=== PATIENT | female | born 1970 | race Caucasian/White ===

== ENCOUNTER → 2018-08-26 | Outpatient (CLI) | payer OTHER ==
--- NOTE | 2018-08-26 17:39 | MR ---
EXAMINATION TYPE: MR cervical spine wo con DATE OF EXAM: 08/26/2018 12:23 PM COMPARISON: NONE HISTORY: Neck pain, numbness in lt arm/fingers Multiplanar MultiSpin echo imaging of the cervical spine was performed. Comparison: none C2-C3: No evidence for degenerative disc disease. No disc bulge/herniation or protrusion. No Canal stenosis. Foramina are patent bilaterally. C3-C4: Mild disc desiccation. Mild posterior disc bulge. No evidence for a central stenosis or cord c ontact. No evidence for foraminal encroachment. C4-C5: Mild disc desiccation with circumferential disc bulge greatest posteriorly. Mild effacement ve ntral thecal sac. No evidence for cord contact or central stenosis. No evidence for foraminal encroac hment. C5-C6: Moderate disc desiccation with circumferential disc bulge greatest posteriorly. Effacement of the ventral thecal sac with borderline to mild stenosis. Mild left foraminal encroachment identified. C6-C7: No evidence for degenerative disc disease. No disc bulge/herniation or protrusion. No Canal stenosis. Foramina are patent bilaterally. C7-T1: No evidence for degenerative disc disease. No disc bulge/herniation or protrusion. No Canal stenosis. Foramina are patent bilaterally. Cervical segments are intact. There is normal alignment. Cervical spinal cord is of normal signal. Craniovertebral junction relationships are within normal limits. IMPRESSION: 1. Multilevel degenerative disc disease. 2. Borderline to mild central stenosis at C5-6 as outlined above.
== END ==
LOC: RADMRIMAIN 08:35
PROVIDERS: ATTEND Orthopaedic Surgery
DX: M48.02 Spinal stenosis, cervical region (principal); M50.30 Other cervical disc degeneration, unspecified cervical region
CPT/HCPCS: 72141

== ENCOUNTER → 2018-12-19 | Outpatient (CLI) | payer OTHER ==
[2018-12-19 11:44] LABS: T4, Free (Free Thyroxine) 0.8 ng/dL (0.80-1.80)
== END | disposition home or self-care (01) ==
LOC: LABWHC1 06:41
PROVIDERS: ATTEND Family Medicine
DX: E03.9 Hypothyroidism, unspecified (principal)
CPT/HCPCS: 36415; 84439; 84443

== ENCOUNTER 2019-01-22 07:34 | Observation (INO) | payer OTHER ==
[2019-01-22] MEDS ORDERED: ASPIRIN 81 MG PO STA (07:53)
[2019-01-22] MEDS ORDERED: SODIUM CHLORIDE 0.9% 1,000 ML IV STA (07:53)
--- NOTE | 2019-01-22 07:57 | ED ---
Chest Pain HPI - General Chief Complaint: Chest Pain Stated Complaint: chest pain Time Seen by Provider: 01/22/19 07:45 Source: patient, RN notes reviewed Mode of arrival: wheelchair Limitations: no limitations - History of Present Illness Initial Comments: This is a 48-year-old female with a history is negative for any heart or lung disease but who did have a mother who had a heart attack in her mid 30s who states she's been having issues with recent right arm pain none today also some vague shortness of breath over last several days but none today but about 640 this morning started developing midsternal heavy pressure-like pain 6-03/12 severity she also no other blood pressure was elevated 179/112 3185/104 this is not typical for her. She does have a history of SVT with ablation and did not really feel like that. She's had no recent cough cold fevers chills nausea vomiting sweats no heavy lifting. She does work in the mental health unit. The pain does not get better or worse with movements or positional changes. She did take some Benadryl this morning and she thought this may help but did not MD Complaint: chest pain - Related Data Home Medications Medication Instructions Recorded Confirmed Desvenlafaxine Succinate [Pristiq] 100 mg PO DAILY 01/22/19 01/22/19 Dextroamphetamine/Amphetamine 30 mg PO DAILY 01/22/19 01/22/19 [Adderall] Ibuprofen [Motrin Ib] 600 mg PO Q6H PRN 01/22/19 01/22/19 Keto Suppliment 2 cap PO DAILY 01/22/19 01/22/19 Thyroid,Pork [[place] Thyroid] 60 mg PO DIRECTED 01/22/19 01/22/19 busPIRone HCl [Buspar] 10 mg PO DAILY 01/22/19 01/22/19 clonazePAM [KlonoPIN] 1 mg PO HS PRN 01/22/19 01/22/19 Allergies Allergy/AdvReac Type Severity Reaction Status Date / Time No Known Allergies Allergy Verified 01/22/19 08:50 Review of Systems ROS Statement: Those systems with pertinent positive or pertinent negative responses have been documented in the HPI. ROS Other: All systems not noted in ROS Statement are negative. EKG Findings - EKG Results: EKG: interpreted by LILLY, sinus rhythm (Sinus rhythm rate of 94 WI interval 120 QRS duration 82 QT since QTC 392/490 nonspecific anterior configuration some artifact present) Past Medical History Additional Past Medical History / Comment(s): SVT, History of Any Multi-Drug Resistant Organisms: None Reported Additional Past Surgical History / Comment(s): bladder sling, breast augmentation. Past Psychological History: Anxiety, Depression Smoking Status: Former smoker Past Alcohol Use History: Occasional Past Drug Use History: None Reported General Exam - General Exam Comments Initial Comments: This is a well-developed well-nourished awake alert oriented 3 female Limitations: no limitations General appearance: alert, in no apparent distress Head exam: Present: atraumatic, normocephalic, normal inspection Eye exam: Present: normal appearance, PERRL, EOMI. Absent: scleral icterus, conjunctival injection, periorbital swelling ENT exam: Present: normal exam, mucous membranes moist Neck exam: Present: normal inspection, full ROM, other (No stridor JVD or bruits). Absent: tenderness, meningismus, lymphadenopathy Respiratory exam: Present: normal lung sounds bilaterally. Absent: respiratory distress, wheezes, rales, rhonchi, stridor Cardiovascular Exam: Present: regular rate, normal rhythm, normal heart sounds. Absent: systolic murmur, diastolic murmur, rubs, gallop, clicks GI/Abdominal exam: Present: soft, normal bowel sounds. Absent: distended, tenderness, guarding, rebound, rigid Extremities exam: Present: normal inspection, full ROM, normal capillary refill. Absent: tenderness, pedal edema, joint swelling, calf tenderness Back exam: Present: normal inspection Neurological exam: Present: alert, oriented X3, CN II-XII intact Psychiatric exam: Present: normal affect, normal mood Skin exam: Present: warm, dry, intact, normal color. Absent: rash Course Vital Signs 01/22/19 01/22/19 01/22/19 07:36 07:48 08:00 Temperature 98.3 F Pulse Rate 97 90 85 Pulse Rate [ Software Developer Intern ] Respiratory 16 15 19 Rate Blood Pressure 179/112 166/107 O2 Sat by Pulse 99 Oximetry 01/22/19 01/22/19 01/22/19 08:24 08:30 09:00 Temperature Pulse Rate 91 89 Pulse Rate [ 87 Software Developer Intern ] Respiratory 24 11 L Rate Blood Pressure 155/112 155/112 O2 Sat by Pulse Oximetry 01/22/19 01/22/19 09:30 10:14 Temperature Pulse Rate Pulse Rate [ Software Developer Intern ] Respiratory Rate Blood Pressure 151/106 129/85 O2 Sat by Pulse Oximetry - Reevaluation(s) Reevaluation #1: 01/22/19 10:14 Reevaluation patient revealed no new chest pain. Reevaluation #2: 01/22/19 10:18 I did review the old EKG dated 07/23/12 which is consistent with today's EKG. Chest Pain MDM - MDM I did review the imaging and report no acute findings. Case was discussed with the patient the symptoms are atypical but the patient does have a strong family history she will be admitted for evaluation of chest pain. I did discuss case with Dr. Wright. Cardiology will be consulted. The patient does see Dr. Noble Disposition Clinical Impression: Chest pain, Unstable angina pectoris Disposition: ADMITTED IP TO THIS [facility] Condition: Stable Referrals: Tiny Lala DO [Primary Care Provider] - 1-2 days
--- NOTE | 2019-01-22 08:27 | XR ---
EXAMINATION TYPE: XR chest 2V DATE OF EXAM: 01/22/2019 COMPARISON: Prior chest x-ray 07/22/2012 HISTORY: Chest pain TECHNIQUE: Frontal and lateral views of the chest are obtained. FINDINGS: There is no focal air space opacity, pleural effusion, or pneumothorax seen. The cardiac silhouette size is within normal limits. The osseous structures are intact. There are overlying car diac leads. Breast prostheses are present. IMPRESSION: No acute cardiopulmonary process.
[2019-01-22 08:39] LABS: ALT 35 U/L (9-52); AST 26 U/L (14-36); Albumin 4.5 g/dL (3.5-5.0); Alkaline Phosphatase 64 U/L (38-126); Amylase 51 U/L (30-110); Anion Gap 8 mmol/L; Blood Urea Nitrogen 11 mg/dL (7-17); Calcium 9.6 mg/dL (8.4-10.2); Carbon Dioxide 29 mmol/L (22-30); Chloride 99 mmol/L (98-107); Creatine Kinase 121 U/L (30-135); Glucose 85 mg/dL (74-99); Lipase 105 U/L (23-300); Magnesium 1.7 mg/dL (1.6-2.3); Potassium 3.9 mmol/L (3.5-5.1); Sodium 136 mmol/L (137-145); Total Bilirubin 0.8 mg/dL (0.2-1.3); Total Protein 7.5 g/dL (6.3-8.2)
[2019-01-22 08:47] LABS: D-Dimer 0.19 mg/L FEU (<0.60); INR 0.9 (<1.2); Partial Thromboplastin Time 22.4 sec (22.0-30.0)
[2019-01-22 09:03] LABS: Basophils % (A) 1 %; Eosinophils # (A) 0.3 k/uL (0-0.7); Eosinophils % (A) 4 %; HCT 36.4 % (34.0-46.0); HGB 12.5 gm/dL (11.4-16.0); Lymphocytes # (A) 1.6 k/uL (1.0-4.8); Lymphocytes % (A) 24 %; MCH 30.4 pg (25.0-35.0); MCHC 34.4 g/dL (31.0-37.0); MCV 88.3 fL (80.0-100.0); Mean Platelet Volume 6.8; Monocytes # (A) 0.5 k/uL (0-1.0); Monocytes % (A) 8 %; Neutrophils # (A) 4.2 k/uL (1.3-7.7); Neutrophils % (A) 62 %; Platelet Count 388 k/uL (150-450); RBC 4.13 m/uL (3.80-5.40); RDW 13.3 % (11.5-15.5); WBC 6.8 k/uL (3.8-10.6)
[2019-01-22] MEDS ORDERED: NITROGLYCERIN SL TABS 0.4 MG TAB SUBLINGUAL PRN (10:22)
[2019-01-22] MEDS ORDERED: HEPARIN SODIUM,PORCINE 5,000 UNIT/ML 1 ML VIAL IV ONE (10:22)
[2019-01-22] MEDS ORDERED: HEPARIN SOD,PORK IN 0.45% NACL 25,000 UNIT in 0.45% NACL 1 250ML.BAG IV SCH (10:30)
[2019-01-22] MEDS ORDERED: NON-FORMULARY DRUG (Thyroid,Pork [Armour Thyroid] 60 MG) PO SCH (10:30)
[2019-01-22] MEDS ORDERED: SODIUM CHLORIDE 0.9% 1,000 ML IV SCH (11:30)
--- NOTE | 2019-01-22 11:40 | P.CRDCN ---
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 Rose and dyslipidemia. She also has anxiety and depression. We have been asked to see her in consultation secondary to an episode of chest discomfort. She works the midnight shift at the hospital and at 640 in the morning she started feeling very heavy pressure sensation in the midsternal region. There is no radiation to the back, neck, arms or jaw. She checked her blood pressure and was very high 170/110 which is very abnormal for her. She does not take any medication for hypertension. Upon arrival to the emergency department blood pressure was 179/112 and 166/107. Blood pressures are slowly trending down. Her symptoms persisted for approximately 3 hours with no specific alleviating or aggravating factors. She was started on a heparin infusion given an aspirin in the emergency department. She denies associated shortness of breath, dizziness, palpitations, nausea, vomiting or diaphoresis. She states when she was diagnosed with SVT her symptoms were very atypical and similar to how she felt this morning however at that time she also was extremely lightheaded and she did not have any lightheaded or dizzy feeling this time. EKG reveals sinus rhythm with T-wave inversions in anterior leads. No acute ST abnormalities. Chest x-ray is negative for an acute cardiopulmonary process. Laboratory data reviewed, WBC 6.8, hemoglobin 12.5, platelets 388, d-dimer 0.19, sodium 136, potassium 3.9, creatinine 0.65, magnesium 1.7, cardiac enzymes negative 1 and proBNP 142. She takes no daily cardiac medications. Most recent stress test performed in the office in 2016 was a stress echocardiogram which revealed good exercise capacity, no evidence of EKG or echocardiographic abnormalities suggestive of ischemia and no exercise-induced arrhythmias. At the time of my exam: CONSTITUTIONAL: Denies fever. Denies chills. EYES: Denies blurred vision. Denies vision changes. Denies eye pain. EARS, NOSE, MOUTH & THROAT: Denies headache. Denies sore throat. Denies ear pain. CARDIOVASCULAR: Denies chest pain. Denies shortness of breath. Denies orthopnea. Denies PND. Denies palpitations. RESPIRATORY: Denies cough. GASTROINTESTINAL: Denies abdominal pain. Denies diarrhea. Denies constipation. Denies nausea. Denies vomiting. MUSCULOSKELETAL: Denies myalgias. INTEGUMENTARY: Denies pruitis. Denies rash. NEUROLOGIC: Denies numbness. Denies tingling. Denies weakness. PSYCHIATRIC: Denies anxiety. Denies depression. ENDOCRINE: Denies fatigue. Denies weight change. Denies polydipsia. Denies polyurina. GENITOURINARY: Denies burning, hematuria or urgency with micturation. HEMATOLOGIC: Denies history of anemia. Denies bleeding. Blood pressure 149/101 heart rate 96 afebrile maintaining oxygen saturation on room air GENERAL: This is a 48-year-old female in no apparent distress at the time of my examination. HEENT: Head is atraumatic, normocephalic. Pupils are equal, round. Sclerae anicteric. Conjunctivae are clear. Mucous membranes of the mouth are moist. Neck is supple. There is no jugular venous distention. No carotid bruit is heard. LUNGS: Clear to auscultation no wheezes, rales or rhonchi. No chest wall tenderness is noted on palpation or with deep breathing. HEART: Regular rate and rhythm without murmurs, rubs or gallops. S1 and S2 heard. ABDOMEN: Soft, nontender. Bowel sounds are heard. No organomegaly noted. EXTREMITIES: No evidence of peripheral edema and no calf tenderness noted. VASCULAR: Radial and dorsalis pedis pulses palpated, no evidence of clubbing. NEUROLOGIC: Patient is awake, alert and oriented x3. ASSESSMENT Chest pain, atypical for angina. 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 Continue to obtain serial cardiac enzymes to rule out an acute coronary event. Obtain 2-D echocardiogram and Doppler study to assess cardiac structure and function. Check thyroid studies. Cardiac enzymes are normal heparin can be discontinued and she will undergo stress echocardiogram. Ongoing telemetry monitoring for an acute arrhythmia. We will continue to follow and make recommendations accordingly. Thank you kindly for this consultation. Nurse Practitioner note has been reviewed, I agree with a documented findings and plan of care. Patient was seen and examined. Past Medical History Additional Past Medical History / Comment(s): SVT, History of Any Multi-Drug Resistant Organisms: None Reported Additional Past Surgical History / Comment(s): bladder sling, breast augmentation. Past Psychological History: Anxiety, Depression Smoking Status: Former smoker Past Alcohol Use History: Occasional Past Drug Use History: None Reported Medications and Allergies Home Medications Medication Instructions Recorded Confirmed Type Desvenlafaxine Succinate [Pristiq] 100 mg PO DAILY 01/22/19 01/22/19 History Dextroamphetamine/Amphetamine 30 mg PO DAILY 01/22/19 01/22/19 History [Adderall] Ibuprofen [Motrin Ib] 600 mg PO Q6H PRN 01/22/19 01/22/19 History Keto Suppliment 2 cap PO DAILY 01/22/19 01/22/19 History Thyroid,Pork [[place] Thyroid] 60 mg PO DIRECTED 01/22/19 01/22/19 History busPIRone HCl [Buspar] 10 mg PO DAILY 01/22/19 01/22/19 History clonazePAM [KlonoPIN] 1 mg PO HS PRN 01/22/19 01/22/19 History Allergies Allergy/AdvReac Type Severity Reaction Status Date / Time No Known Allergies Allergy Verified 01/22/19 08:50 Physical Exam Vitals: Vital Signs Temp Pulse Pulse Pulse Resp BP BP 01/22/19 11:08 98.6 F 96 16 149/101 01/22/19 10:14 129/85 01/22/19 09:30 151/106 01/22/19 09:00 89 11 L 155/112 01/22/19 08:30 91 24 155/112 01/22/19 08:24 87 01/22/19 08:00 85 19 166/107 01/22/19 07:48 90 15 01/22/19 07:36 98.3 F 97 16 179/112 Pulse Ox 01/22/19 11:08 100 01/22/19 10:14 01/22/19 09:30 01/22/19 09:00 01/22/19 08:30 01/22/19 08:24 01/22/19 08:00 01/22/19 07:48 01/22/19 07:36 99 Intake and Output 01/21/19 01/22/19 01/22/19 22:59 06:59 14:59 Other: Weight 62.596 kg Results 01/22/19 08:11 01/22/19 08:11 Cardiac Enzymes 01/22/19 01/22/19 Range/Units 08:11 08:11 AST 26 (14-36) U/L Troponin I <0.012 (0.000-0.034) ng/mL Coagulation 01/22/19 Range/Units 08:11 PT 10.0 (9.0-12.0) sec APTT 22.4 (22.0-30.0) sec CBC 01/22/19 Range/Units 08:11 WBC 6.8 (3.8-10.6) k/uL RBC 4.13 (3.80-5.40) m/uL Hgb 12.5 (11.4-16.0) gm/dL Hct 36.4 (34.0-46.0) % Plt Count 388 (150-450) k/uL Comprehensive Metabolic Panel 01/22/19 Range/Units 08:11 Sodium 136 L (137-145) mmol/L Potassium 3.9 (3.5-5.1) mmol/L Chloride 99 (98-107) mmol/L Carbon Dioxide 29 (22-30) mmol/L BUN 11 (7-17) mg/dL Creatinine 0.65 (0.52-1.04) mg/dL Glucose 85 (74-99) mg/dL Calcium 9.6 (8.4-10.2) mg/dL AST 26 (14-36) U/L ALT 35 (9-52) U/L Alkaline Phosphatase 64 (38-126) U/L Total Protein 7.5 (6.3-8.2) g/dL Albumin 4.5 (3.5-5.0) g/dL Current Medications Generic Name Dose Route Start Last Admin Trade Name Freq PRN Reason Stop Dose Admin Aspirin 81 mg 01/23/19 09:00 Aspirin PO DAILY TED Buspirone HCl 10 mg 01/22/19 21:00 Buspar PO HS TED Clonazepam 1 mg 01/22/19 21:00 Klonopin PO HS PRN Anxiety Desvenlafaxine Succinate 100 mg 01/22/19 21:00 Pristiq Er PO HS TED Sodium Chloride 1,000 mls @ 100 mls/hr 01/22/19 07:53 01/22/19 08:16 Saline 0.9% IV 01/22/19 17:52 100 mls/hr .Q10H STA Administration Heparin Sodium/Sodium Chloride 250 mls @ 7.512 mls/hr 01/22/19 10:30 01/22/19 10:48 25,000 unit/ Sodium Chloride IV 12 units/kg/hr .Q24H TED 7.512 mls/hr Administration Protocol 12 UNITS/KG/HR Sodium Chloride 1,000 mls @ 20 mls/hr 01/22/19 11:30 Saline 0.9% IV .Q24H TED Nitroglycerin 0.4 mg 01/22/19 10:22 Nitrostat SUBLINGUAL Q5M PRN Chest Pain Adderall ( 30 mg 01/23/19 09:00 Dextroamphetamine/ PO Amphetamine) 30 Mg DAILY TED Intake and Output 01/21/19 01/22/19 01/22/19 22:59 06:59 14:59 Other: Weight 62.596 kg Patient Weight 01/23/19 06:59 Weight 62.596 kg 01/22/19 08:11 01/22/19 08:11
--- NOTE | 2019-01-22 13:15 | P.HPIM ---
History of Present Illness H&P Date: 01/22/19 Chief Complaint: Chest pain, palpitation, significantly high blood pressure 48-year-old female one of Dr. Montalvo's patient with past medical history AV hedy reentry tachycardia post-ablation to Dr. Noble back in 2011, history of hyperlipidemia, history of depression and mild ADD who presented to the emergency department at [facility] today 01/22/2019 with an episode of chest discomfort lasted between 6:00 in the morning to 9:00 as a pressure discomfort like without radiation had mild shortness of breath mild tachycardia and significantly high blood pressure running 170/110 at the time. 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 Her workup at the emergency department with negative EKG, troponin was normal. Blood pressure was moderately elevated. Patient was started on heparin drip nitro consult cardiology and admit patient to the hospital. Review of Systems CONSTITUTIONAL: Well-developed no acute respiratory distress. EYES: No icterus sclerae, no conjunctivitis. EARS, NOSE, MOUTH, THROAT, and FACE: No sore throat, lymphadenopathy, carotid bruits or deformity. RESPIRATORY: Positive chest pain no shortness of breath cough wheezes CARDIOVASCULAR: Positive chest pain or palpitation no PND orthopnea. GASTROINTESTINAL: No Abd pain, Nausea or vomiting, no Diarrhea or constipation, No GI Bleed, no distention or masses. GENITOURINARY: Negative for Hematuria or UTI, no kidney stones. INTEGUMENT/BREAST: Negative for any muscular injury with mild osteoarthritis.. HEMATOLOGIC/LYMPHATIC: Negative for bleed or purpura. MUSCULOSKELTAL: Negative for Myalgia or arthralgia. NEURLOGICAL: No LOC, Sz or syncope, blurred vision dizziness or abnormality.. BEHAVIORAL/PSYCH: Negative. ENDOCRINE: Negative. Past Medical History Additional Past Medical History / Comment(s): SVT, History of Any Multi-Drug Resistant Organisms: None Reported Additional Past Surgical History / Comment(s): bladder sling, breast augmentation, cardiac ablation [address] Noble. Past Psychological History: Anxiety, Depression Smoking Status: Former smoker Past Alcohol Use History: Occasional Additional Past Alcohol Use History / Comment(s): Smoked for 2 years only. No alcohol abuse. Past Drug Use History: None Reported - Past Family History Mother Additional Family Medical History / Comment(s): Mother at age 57 from lung cancer with history of 2 MIs. Father Additional Family Medical History / Comment(s): Father alive at age 66 with history of COPD and HTN. Patient is an only child. 2 children with no major medical problems. Medications and Allergies Home Medications Medication Instructions Recorded Confirmed Type Desvenlafaxine Succinate [Pristiq] 100 mg PO DAILY 01/22/19 01/22/19 History Dextroamphetamine/Amphetamine 30 mg PO DAILY 01/22/19 01/22/19 History [Adderall] Ibuprofen [Motrin Ib] 600 mg PO Q6H PRN 01/22/19 01/22/19 History Keto Suppliment 2 cap PO DAILY 01/22/19 01/22/19 History Thyroid,Pork [[place] Thyroid] 60 mg PO DIRECTED 01/22/19 01/22/19 History busPIRone HCl [Buspar] 10 mg PO DAILY 01/22/19 01/22/19 History clonazePAM [KlonoPIN] 1 mg PO HS PRN 01/22/19 01/22/19 History Allergies Allergy/AdvReac Type Severity Reaction Status Date / Time No Known Allergies Allergy Verified 01/22/19 08:50 Physical Exam Vitals: Vital Signs Temp Pulse Pulse Pulse Resp BP BP 01/22/19 11:08 98.6 F 96 16 149/101 01/22/19 10:14 129/85 01/22/19 09:30 151/106 01/22/19 09:00 89 11 L 155/112 01/22/19 08:30 91 24 155/112 01/22/19 08:24 87 01/22/19 08:00 85 19 166/107 01/22/19 07:48 90 15 01/22/19 07:36 98.3 F 97 16 179/112 Pulse Ox 01/22/19 11:08 100 01/22/19 10:14 01/22/19 09:30 01/22/19 09:00 01/22/19 08:30 01/22/19 08:24 01/22/19 08:00 01/22/19 07:48 01/22/19 07:36 99 Intake and Output 01/21/19 01/22/19 01/22/19 22:59 06:59 14:59 Other: Weight 62.596 kg General Appearance: Alert, cooperative, no distress, appears stated age. Neck HEENT: Supple, no lymphadenopathy, no thyroid enlargement, no carotid b ruits. Lungs: Clear to auscultation without crackles or wheezes no rhonchi, no deformity. Chest Wall: Chest wall normal expansion with deep inspiration no tenderness and no deformity was found on exam, no costochondral pain or discomfort. Heart: Regular rate and rhythm, S1, S2 normal, no murmur, rub or gallop. Back: Symmetric, no curvature, ROM normal, no CVA tenderness. Abdomen: Soft, non-tender, bowel sounds active all four quadrants, no masses, no organomegaly. Extremities: Extremities normal, atraumatic, no cyanosis or edema. Pulses: 2+ and symmetric. Skin: Skin color, texture, tugor normal, no rashes or lesions. Neurologic: Alert oriented x3 cranial nerves II through XII intact, no motor deficit, no abnormal balance or gait. Results CBC & Chem 7: 01/22/19 08:11 01/22/19 08:11 Labs: Abnormal Lab Results - Last 24 Hours (Table) 01/22/19 Range/Units 08:11 Sodium 136 L (137-145) mmol/L Thrombosis Risk Factor Assmnt - DVT/VTE Prophylaxis DVT/VTE Prophylaxis: Pharmacologic Prophylaxis ordered, Mechanical Prophylaxis ordered Assessment and Plan Plan: 1 atypical chest pain: With high risk factor, with patient's current history Will hospitalize patient CK with troponin 3 will be done, consult cardiology, if troponin is negative patient be going for stress test and echo if troponin is elevated she'll require to go for heart cath. 2 arrhythmia: Mostly AV hedy reentry tachycardia post-ablation, has not been on any medication can benefit from small dose of beta ina if her blood pressure was tolerate. 3 significantly high blood pressure at the time: Blood pressure subtle down and decrease to 130/90, we talk about starting patient on small dose of beta ina calcium channel ina. 4 hyperlipidemia: Not on any medication. 5 chronic depression: Patient has been on BuSpar, Pristiq and clonidine. 6 hypothyroidism: Has been on [place] Thyroid TSH free T4 apparently was done recently as an outpatient. 7 GI prophylaxis: Patient will be on pantoprazole 40 mg daily. 8 DVT prophylaxis: Patient was started on heparin drip at this point. CODE STATUS: Full code. Admit patient to observation status for 1-2 nights.
[2019-01-22] MEDS ORDERED: diphenhydrAMINE 25 MG CAP PO PRN ×2 (13:39→14:13)
[2019-01-22] MEDS: PANTOPRAZOLE 40 MG TABLET PO SCH (14:17)
[2019-01-22 14:39] VITALS: BMI 26.0
[2019-01-22] MEDS ORDERED: busPIRone HCl 10 MG TAB PO SCH (21:00)
[2019-01-22] MEDS ORDERED: clonazePAM 1 MG TAB PO PRN (21:00)
[2019-01-22] MEDS ORDERED: DESVENLAFAXINE SUCCINATE 50 MG TAB.ER.24H PO SCH (21:00)
[2019-01-23 07:54] LABS: Cholesterol 243 mg/dL (<200); HDL Cholesterol 70 mg/dL (40-60); LDL Cholesterol,Calculated 147 mg/dL (0-99); Triglycerides 132 mg/dL (<150)
[2019-01-23] MEDS ORDERED: ASPIRIN 81 MG PO SCH (09:00)
[2019-01-23] MEDS ORDERED: DESVENLAFAXINE SUCCINATE 50 MG TAB.ER.24H PO SCH (09:00)
[2019-01-23] MEDS ORDERED: busPIRone HCl 10 MG TAB PO SCH (09:00)
[2019-01-23] MEDS ORDERED: ADDERALL 30 MG PO SCH (09:00)
[2019-01-23] MEDS ORDERED: ASPIRIN 325 MG TAB PO SCH (09:00)
[2019-01-23] MEDS: PANTOPRAZOLE 40 MG TABLET PO SCH (09:54)
--- NOTE | 2019-01-23 10:41 | P.PN ---
Subjective This is a pleasant 48 showed female past medical history significant for AV hedy reentry tachycardia status [place] [address] Rose and dyslipidemia. She also has anxiety and depression. We have been asked to see her in consultation secondary to an episode of chest discomfort. She works the midnight shift at the hospital and at 640 in the morning she started feeling very heavy pressure sensation in the midsternal region. There is no radiation to the back, neck, arms or jaw. She checked her blood pressure and was very high 170/110 which is very abnormal for her. She does not take any medication for hypertension. Upon arrival to the emergency department blood pressure was 179/112 and 166/107. Blood pressures are slowly trending down. Her symptoms persisted for approximately 3 hours with no specific alleviating or aggravating factors. She was started on a heparin infusion given an aspirin in the emerge ncy department. She denies associated shortness of breath, dizziness, palpitations, nausea, vomiting or diaphoresis. She states when she was diagnosed with SVT her symptoms were very atypical and similar to how she felt this morning however at that time she also was extremely lightheaded and she did not have any lightheaded or dizzy feeling this time. 01/23/2019 Pt seen and examined in no acute distress. No further symptoms of chest discomfort. Blood pressure 115/84 heart rate 66 afebrile and maintaining oxygen saturation on room air. Laboratory data reviewed, cardiac enzymes negative 3, TSH 2.0, LDL 147 and HDL 70. Telemetry tracings are unremarkable with no arrhythmias noted. Stress test completed without incident or EKG/echocardiographic evidence of ischemia. GENERAL: This is a 48-year-old female in no apparent distress at the time of my examination. HEENT: Head is atraumatic, normocephalic. Pupils are equal, round. Sclerae anicteric. Conjunctivae are clear. Mucous membranes of the mouth are moist. Neck is supple. There is no jugular venous distention. No carotid bruit is heard. LUNGS: Clear to auscultation no wheezes, rales or rhonchi. No chest wall tenderness is noted on palpation or with deep breathing. HEART: Regular rate and rhythm without murmurs, rubs or gallops. S1 and S2 heard. EXTREMITIES: No evidence of peripheral edema and no calf tenderness noted. ASSESSMENT Chest pain, atypical for angina. 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 Follow up with Dr. Noble in 2-3 weeks. Nurse Practitioner note has been reviewed, I agree with a documented findings and plan of care. Patient was seen and examined. Objective - Vital Signs Vital signs: Vital Signs Temp 98.1 F 01/23/19 07:50 Pulse 87 01/23/19 08:00 Resp 16 01/23/19 08:00 BP 115/84 01/23/19 07:50 Pulse Ox 98 01/23/19 07:50 Intake & Output 01/22/19 01/23/19 01/23/19 18:59 06:59 18:59 Intake Total 291.332 Balance 291.332 Weight 62.596 kg 62.596 kg Intake: Intake, IV Titration 51.332 Amount Heparin Sod,Pork in 0.45% 51.332 NaCl 25,000 unit In 0.45 % NaCl 1 250ml.bag @ 12 UNITS/KG/HR 7.512 mls/hr IV .Q24H TED Rx#: [id number] Oral 240 Other: Voiding Method Toilet Toilet # Voids 1 1 3 - Labs CBC & Chem 7: 01/22/19 08:11 01/22/19 08:11 Labs: Abnormal Lab Results - Last 24 Hours (Table) 01/22/19 01/22/19 Range/Units 08:11 16:05 APTT 35.1 H (22.0-30.0) sec Cholesterol 243 H (<200) mg/dL LDL Cholesterol, Calc 147 H (0-99) mg/dL HDL Cholesterol 70 H (40-60) mg/dL
--- NOTE | 2019-01-23 10:51 | ECHOF ---
Referral Reason:cp MEASUREMENTS -------- HEIGHT: 154.9 cm WEIGHT: 62.6 kg BP: 155/111 RVIDd: 2.5 cm (< 3.3) IVSd: 1.0 cm (0.6 - 1.1) LVIDd: 4.4 cm (3.9 - 5.3) LVPWd: 1.0 cm (0.6 - 1.1) IVSs: 1.4 cm LVIDs: 2.6 cm LVPWs: 1.3 cm LA Diam: 3.1 cm (2.7 - 3.8) LAESV Index (A-L): 11.66 ml/m Ao Diam: 3.2 cm (2.0 - 3.7) AV Cusp: 2.1 cm (1.5 - 2.6) MV EXCURSION: 11.280 mm (> 18.000) MV EF SLOPE: 96 mm/s (70 - 150) EPSS: 0.6 cm MV E Vijay: 0.97 m/s MV DecT: 144 ms MV A Vijay: 0.97 m/s MV E/A Ratio: 1.00 AR PHT: 742 ms RAP: 5.00 mmHg RVSP: 26.29 mmHg FINDINGS -------- Sinus rhythm. This was a technically good study. The left ventricular size is normal. Left ventricular wall thickness is normal. Overall left vent ricular systolic function is normal with, an EF between 60 - 65 %. The right ventricle is normal in size. Normal LA size by volume 22+/-6 ml/m2. The right atrium is normal in size. Interatrial and interventricular septum intact. Aortic valve is trileaflet and is mildly thickened. Trace to mild aortic regurgitation. The mitral valve is normal. Mild mitral regurgitation is present. Mild tricuspid regurgitation present. Right ventricular systolic pressure is normal at < 35 mmHg. Trace/mild (physiologic) pulmonic regurgitation. The aortic root size is normal. Normal inferior vena cava with normal inspiratory collapse consistent with estimated right atrial pre ssure of 5 mmHg. There is no pericardial effusion. CONCLUSIONS -------- 1. Sinus rhythm. 2. This was a technically good study. 3. The left ventricular size is normal. 4. Left ventricular wall thickness is normal. 5. Overall left ventricular systolic function is normal with, an EF between 60 - 65 %. 6. The right ventricle is normal in size. 7. Normal LA size by volume 22+/-6 ml/m2. 8. The right atrium is normal in size. 9. Interatrial and interventricular septum intact. 10. Aortic valve is trileaflet and is mildly thickened. 11. Trace to mild aortic regurgitation. 12. The mitral valve is normal. 13. Mild mitral regurgitation is present. 14. Mild tricuspid regurgitation present. 15. Right ventricular systolic pressure is normal at < 35 mmHg. 16. Trace/mild (physiologic) pulmonic regurgitation. 17. The aortic root size is normal. 18. Normal inferior vena cava with normal inspiratory collapse consistent with estimated right atrial pressure of 5 mmHg. 19. There is no pericardial effusion. DITCH CLEANER: Keren Mahmood RDCS
--- NOTE | 2019-01-23 11:00 | ECHOS ---
STRESS ECHOCARDIOGRAM DATE OF SERVICE: 01/23/2019. INDICATION: Chest pain. MEDICATIONS: See list. BASELINE HEART RATE: 98. BASELINE BLOOD PRESSURE: 121/91. MAXIMUM HEART RATE: 158 MAXIMUM BLOOD PRESSURE: 153/74 85% MPHR: 148 100% MPHR: 174 METS: 12.1 MAXIMUM STAGE REACHED: IV TOTAL EXERCISE TIME: 10.24 minutes CLINICAL INFORMATION: Chest pain. RESULTS: Baseline EKG shows sinus rhythm, normal axis, normal intervals. Patient exercised on Gustavo protocol for a total of 10 and one half minutes achieving 12 METS. 91% of predicted maximal heart rate without chest pain or diagnostic ST-segment depression. Baseline echo shows normal left ventricular size, wall motion and systolic function. Postexercise there is normal hyperdynamic response of all segments of myocardium noted. CONCLUSIONS: 1. Excellent exercise tolerance. 2. Negative stress test by EKG criteria. 3. Negative stress echo. MMODL / IJN: [id number] /
[2019-01-23 12:08] VITALS: BP 112/77; PULSE 81; RESP 18; TEMP 97.6
--- NOTE | 2019-01-24 13:21 | P.DS ---
Providers Date of admission: 01/22/19 10:22 Expected date of discharge: 01/23/19 Attending physician: Remington Wright Consults: 01/22/19 10:22 Consult Physician Urgent Consulting Provider: Vipul Noble Consult Reason/Comments: Chest pain, angina Do you want consulting provider notified?: Yes Primary care physician: Tiny Lala, DO Hospital Course: 48-year-old female one of Dr. Montalvo's patient with past medical history AV hedy reentry tachycardia post-ablation to Dr. Noble back in 2011, history of hyperlipidemia, history of depression and mild ADD who presented to the emergency department at [facility] today 01/22/2019 with an episode of chest discomfort lasted between 6:00 in the morning to 9:00 as a pressure discomfort like without radiation had mild shortness of breath mild tachycardia and significantly high blood pressure running 170/110 at the time. 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 Her workup at the emergency department with negative EKG, troponin was normal. Blood pressure was moderately elevated. Patient was started on heparin drip nitro consult cardiology and admit patient to the hospital. 01/23: Echocardiogram reveals EF of 6065% with mild aortic regurgitation, mild mitral regurgitation, mild tricuspid regurgitation. Stress echocardiogram was negative and patient was cleared by cardiology for discharge home. We are Planning to send the patient on Protonix and amlodipine to cover for GERD and Prinzmetal angina. Patient will follow up with Dr. Montalvo in the office. Discharge diagnoses: 1 atypical chest pain 2 arrhythmia: Mostly AV hedy reentry tachycardia post-ablation 3 significantly high blood pressure at the time 4 hyperlipidemia 5 recurrent depression 6 hypothyroidism Discharge plan: Home Impression and plan of care have been directed as dictated by the signing physician. Ariana Schwartz nurse practitioner acting as scribe for signing physician. Patient Condition at Discharge: Good Plan - Discharge Summary New Discharge Prescriptions: New amLODIPine [Norvasc] 2.5 mg PO DAILY #30 tablet Pantoprazole [Protonix] 40 mg PO -BRKFST #30 tablet. Continue Thyroid,Pork [Nelson Thyroid] 60 mg PO DIRECTED clonazePAM [KlonoPIN] 1 mg PO HS PRN PRN Reason: Anxiety Keto Suppliment 2 cap PO DAILY Dextroamphetamine/Amphetamine [Adderall] 30 mg PO DAILY busPIRone HCl [Buspar] 10 mg PO DAILY Desvenlafaxine Succinate [Pristiq] 100 mg PO DAILY Ibuprofen [Motrin Ib] 600 mg PO Q6H PRN PRN Reason: Pain Discharge Medication List Desvenlafaxine Succinate [Pristiq] 100 mg PO DAILY 01/22/19 [History] Dextroamphetamine/Amphetamine [Adderall] 30 mg PO DAILY 01/22/19 [History] Ibuprofen [Motrin Ib] 600 mg PO Q6H PRN 01/22/19 [History] Keto Suppliment 2 cap PO DAILY 01/22/19 [History] Thyroid,Pork [Nelson Thyroid] 60 mg PO DIRECTED 01/22/19 [History] busPIRone HCl [Buspar] 10 mg PO DAILY 01/22/19 [History] clonazePAM [KlonoPIN] 1 mg PO HS PRN 01/22/19 [History] Pantoprazole [Protonix] 40 mg PO AC-BRKFST #30 tablet. 01/23/19 [Rx] amLODIPine [Norvasc] 2.5 mg PO DAILY #30 tablet 01/23/19 [Rx] Follow up Appointment(s)/Referral(s): Liu Montalvo MD [STAFF PHYSICIAN] - 1 Week Jayson Lopes MD [STAFF PHYSICIAN] - 02/11/19 3:15 pm Discharge Disposition: HOME SELF-CARE
== END 2019-01-23 11:52 | disposition home or self-care (01) ==
LOC: EC 07:34 → 1SOBS 10:22
PROVIDERS: ADMIT Internal Medicine Geriatric Medicine; ATTEND Internal Medicine Geriatric Medicine
DX: R07.89 Other chest pain (principal); R03.0 Elevated blood-pressure reading, without diagnosis of hypertension; I47.0 Re-entry ventricular arrhythmia; I08.3 Combined rheumatic disorders of mitral, aortic and tricuspid valves; F41.9 Anxiety disorder, unspecified; F33.9 Major depressive disorder, recurrent, unspecified; E78.5 Hyperlipidemia, unspecified; F98.8 Other specified behavioral and emotional disorders with onset usually occurring in childhood and adolescence; E03.9 Hypothyroidism, unspecified; Z79.899 Other long term (current) drug therapy; Z87.891 Personal history of nicotine dependence; Z82.49 Family history of ischemic heart disease and other diseases of the circulatory system; Z80.1 Family history of malignant neoplasm of trachea, bronchus and lung; Z82.5 Family history of asthma and other chronic lower respiratory diseases
CPT/HCPCS: 96366; 96376; 96365; 99285; 36415; 93005; 93306; 93351; 85379; 83880; 80061; 80053; 84443; 82150; 82550; 83690; 83735; 84484; 85025; 85610; 85730 ×2; 71046; G0378 ×2; J1644 ×2

== ENCOUNTER → 2019-09-24 | Outpatient (CLI) | payer OTHER ==
--- NOTE | 2019-09-24 09:06 | US ---
EXAMINATION TYPE: US abdomen complete DATE OF EXAM: 09/24/2019 COMPARISON: CT, US CLINICAL HISTORY: N30.00 ACUTE CYSTITIS. EXAM MEASUREMENTS: Liver Length: 15.3 cm Gallbladder Wall: 0.1 cm CBD: 0.5 cm Spleen: 10.0 cm Right Kidney: 9.7 x 5.2 x 4.2 cm Left Kidney: 9.3 x 4.7 x 5.5 cm Pancreas: hyperechoic Liver: hyperechoic to right renal cortex suggests fatty liver Gallbladder: wnl, fundal fold is noted Evidence for sonographic Wiley's sign: no CBD: wnl Spleen: wnl Right Kidney: No hydronephrosis or masses seen Left Kidney: No hydronephrosis or masses seen Upper IVC: wnl Abd Aorta: wnl IMPRESSION: 1. Liver increased in echo pattern correlate for hepatic steatosis or hepatitis.
--- NOTE | 2019-09-24 09:10 | US ---
EXAMINATION TYPE: US pelvic complete DATE OF EXAM: 09/24/2019 COMPARISON: CT, US CLINICAL HISTORY: N30.00 ACUTE CYSTITIS. Bladder mesh surgery for urinary incontinence years ago; blo ating sensation; irregular LMP; TECHNIQUE: Transvaginal (TV) and Transabdominal (TA) . Transabdominal sonographic images of the pel vis were acquired. Transvaginal sonographic images were medically necessary to better assess the fol lowing anatomy: bilateral ovary Date of LMP: mid August 2019 EXAM MEASUREMENTS: Uterus: 9.4 x 4.6 x 5.0 cm Endometrial Stripe: 1.3 cm Right Ovary: 3.5 x 4.0 x 3.1 cm Left Ovary: 5.1 x 2.8 x 2.7 cm 1. Uterus: Anteverted; multiple NAbothian Cysts seen in cervix with largest = 0.7 x 0.7 x 0.8cm. 2. Endometrium: thickness measures 1.3 cm 3. Right Ovary: enlarged ovary with large simple cyst = 3.1 x 3.3 x 2.9cm 4. Left Ovary: enlarged ovary, couple of enlarged cysts with larger cyst = 2.7 x 2.5 x 2.6cm (color flow is seen in bilateral ovary) 5. Bilateral Adnexa: wnl 6. Posterior cul-de-sac: wnl IMPRESSION: 1. Endometrium measures 1.3 cm and is thickened correlate with the phase of patient's menstrual cycle . 2. 3.3 cm large right ovarian simple cyst. 3. Left ovarian cysts. Follow-up to resolution follow-up exam in 6-8 weeks could be obtained to danita alvarenga
== END | disposition home or self-care (01) ==
LOC: RADUSWWP 07:22
PROVIDERS: ATTEND Family Medicine
DX: N83.202 Unspecified ovarian cyst, left side (principal); N83.291 Other ovarian cyst, right side; N30.00 Acute cystitis without hematuria
CPT/HCPCS: 76700; 76830; 76856

== ENCOUNTER → 2020-02-03 | Outpatient (CLI) | payer OTHER ==
--- NOTE | 2020-02-04 09:07 | MR ---
EXAMINATION TYPE: MR shoulder RT wo con DATE OF EXAM: 02/03/2020 COMPARISON: No outside radiographic correlation available for review. HISTORY: 49-year-old female with right shoulder strain of the muscle and tendon of the rotator cuff TECHNIQUE: Multiplanar, multisequence imaging of the right shoulder is performed without contrast. FINDINGS: Thickened and increased signal throughout the intracapsular portion of the lung head biceps tendon. T he extracapsular portion remains appropriately situated along the bicipital groove. The subscapularis tendon is intact. Soft tissue replacement and edematous change throughout the rotator cuff interval with obscuration of the coracohumeral ligament. Moderate degenerative change at the acromioclavicular joint with marginal spurring impressing on to t he myotendinous junction of the supraspinatus tendon and small joint effusion. Trace effusion within the subacromial/subdeltoid bursa. Heterogeneous signal within the supraspinatus tendon with a tiny 5 mm long by 7 mm AP articular sided tear of the mid supraspinatous tendon. No high-grade partial or full-thickness tear of either supras pinatus or infraspinatus tendons. No atrophy of the rotator cuff musculature. Mild heterogeneous signal of the superior labrum behind the biceps anchor. No para labral cysts. Glenohumeral joint is otherwise intact with physiologic joint fluid. No Hill-Sachs deformity or os acromiale. Patchy red marrow can be seen in setting of anemia, obesity, smoking, and chronic disease. IMPRESSION: 1. Edematous change and soft tissue replacement throughout the rotator cuff interval. Some differenti al considerations include sprain of the biceps dawson, synovitis, and developing adhesive capsulitis. Clinically correlate. 2. Thickening and edema of the intracapsular portion of the long head biceps tendon may support bicep s dawson sprain with accompanying biceps tendon strain. Again, clinically correlate. 3. Supraspinatus tendinosis with a tiny 5 x 7 mm articular sided tear of the mid fibers. No high-grad e partial or full-thickness rotator cuff tear. 4. Moderate AC joint OA with mild impingement onto the underlying cuff. 5. Some degenerative irregularity of the superior labrum. If concern for labral pathology, MR arthrog huber can be considered.
== END | disposition home or self-care (01) ==
LOC: RADMRIMAIN 05:45
PROVIDERS: ATTEND Emergency Medicine
DX: R60.9 Edema, unspecified (principal); Z96.611 Presence of right artificial shoulder joint; M19.011 Primary osteoarthritis, right shoulder

== ENCOUNTER → 2020-08-06 | Outpatient (CLI) | payer OTHER ==
[2020-08-07 01:36] LABS: African American GFR (CKD) 101.8 (60.0-200.0); Albumin 4.6 g/dL (3.80-4.90); Albumin/Globulin Ratio 2.09 (1.60-3.17); Anion Gap 11.7 mmol/L (4.00-12.00); BUN/Creat Ratio 26.25 Ratio (12.00-20.00); Calcium 9.3 mg/dL (8.7-10.3); Carbon Dioxide 23.3 mmol/L (21.6-31.8); Globulin 2.2 g/dL (1.6-3.3); Non-African American GFR(CKD) 87.8 (60.0-200.0); Potassium 4.1 mmol/L (3.5-5.5); Total Protein 6.8 g/dL (6.2-8.2)
== END | disposition home or self-care (01) ==
LOC: LABWHC1 16:21
DX: Z51.81 Encounter for therapeutic drug level monitoring (principal); Z79.899 Other long term (current) drug therapy
CPT/HCPCS: 36415; 80053

== ENCOUNTER 2023-08-10 16:01 | Emergency (ER) | payer BC ==
[2023-08-10 16:35] VITALS: TEMP 98.3
[2023-08-10] MEDS ORDERED: KETOROLAC 15 MG/ML 1 ML VIAL IVP STA (17:44)
[2023-08-10 17:54] LABS: Basophils # (A) 0.1 k/uL (0-0.2); Basophils % (A) 1 %; Eosinophils # (A) 0.2 k/uL (0-0.7); Eosinophils % (A) 2 %; HCT 35.8 % (34.0-46.0); Lymphocytes # (A) 1.6 k/uL (1.0-4.8); Lymphocytes % (A) 16 %; MCH 29.2 pg (25.0-35.0); MCHC 33.5 g/dL (31.0-37.0); MCV 87.1 fL (80.0-100.0); Mean Platelet Volume 7.1; Monocytes # (A) 0.5 k/uL (0-1.0); Monocytes % (A) 5 %; Neutrophils # (A) 7.5 k/uL (1.3-7.7); Neutrophils % (A) 75 %; Platelet Count 325 k/uL (150-450); RBC 4.11 m/uL (3.80-5.40); RDW 14.9 % (11.5-15.5)
[2023-08-10 18:02] LABS: INR 0.9 (<1.2); Partial Thromboplastin Time 23.9 sec (22.0-30.0); Prothrombin Time 10.1 sec (10.0-12.5)
--- NOTE | 2023-08-10 18:11 | CT ---
EXAMINATION TYPE: CT abdomen pelvis w con DATE OF EXAM: 08/10/2023 COMPARISON: NONE HISTORY: 52-year-old female with hematochezia, Gen. Abdominal pain x 2 days TECHNIQUE: Contiguous axial scanning of the abdomen and pelvis following administration of 100 ml Iso mary 300 IV contrast. Delayed images through the kidneys and coronal/sagittal reconstructions perform ed. CT DLP: 568.1 mGycm Automated exposure control for dose reduction was used. FINDINGS: LUNG BASES: No significant abnormality is appreciated. Bilateral breast implants. LIVER/GB: Liver borderline enlarged at 17.5 cm. No focal lesion. Portal venous system is patent. No b iliary ductal dilatation. Gallbladder within normal limits. PANCREAS: No significant abnormality is seen. SPLEEN: No significant abnormality is seen. ADRENALS: No significant abnormality is seen. KIDNEYS: No significant abnormality is seen. BOWEL: No dilated small bowel. Normal appendix. There is annular thickening at the junction of the ce cum and ascending colon, refer to coronal image 42. This may represent a focal peristaltic wave. Dire ct visualization recommended when patient able. There is moderate edematous circumferential wall thickening with mild pericolonic fat stranding exten ding from the upper descending colon to the proximal sigmoid colon. Some scattered prominent fluid-fi lled small bowel loops mid to lower abdomen and pelvis. LYMPH NODES: No greater than 1cm abdominal or pelvic lymph nodes are appreciated. PELVIS: Mild circumferential bladder wall thickening. Uterus is anteverted. Cervical nabothian cyst measuring 1 cm. Suspected 1.5 cm dominant follicle or functional cyst left ovary. Both ovaries are vi sualized. No abnormal fluid collection the pelvis or pelvic lymphadenopathy. OSSEOUS STRUCTURES: No significant abnormality is seen. OTHER: No significant additional abnormality is seen. IMPRESSION: 1. NONSPECIFIC INFECTIOUS OR INFLAMMATORY COLITIS INVOLVING THE DESCENDING COLON. THERE IS MODERATE E DEMATOUS WALL THICKENING AND MILD ADJACENT FAT STRANDING. NO ABSCESS OR FREE AIR. 2. ANNULAR THICKENING AT THE JUNCTION OF THE CECUM AND ASCENDING COLON MAY REPRESENT FOCAL PERISTALSI S. AFTER SUCCESSFULLY TREATING THE PATIENT'S COLITIS, RECOMMEND DIRECT VISUALIZATION TO EXCLUDE UNDER LYING NEOPLASM. 3. PROMINENT FLUID-FILLED SMALL BOWEL LOOPS MID TO LOWER ABDOMEN AND PELVIS MAY BE A SECONDARY ILEUS OR A CONCURRENT ENTERITIS.
[2023-08-10 18:14] LABS: ALT 30 U/L (4-34); AST 25 U/L (14-36); African American GFR (CKD) >90 (>60 ml/min/1.73 sqM); Alkaline Phosphatase 74 U/L (38-126); Anion Gap 10 mmol/L; Blood Urea Nitrogen 18 mg/dL (7-17); Calcium 8.7 mg/dL (8.4-10.2); Carbon Dioxide 24 mmol/L (22-30); Chloride 102 mmol/L (98-107); Glucose 91 mg/dL (74-99); Magnesium 1.9 mg/dL (1.6-2.3); Non-African American GFR(CKD) >90 (>60 ml/min/1.73 sqM); Potassium 4.1 mmol/L (3.5-5.1); Sodium 136 mmol/L (137-145); Total Bilirubin 0.6 mg/dL (0.2-1.3); Total Protein 6.9 g/dL (6.3-8.2)
[2023-08-10] MEDS ORDERED: cefTRIAXone IN SWFI 1,000 MG/10 ML SYRINGE IVP STA (20:20)
[2023-08-10] MEDS ORDERED: metroNIDAZOLE 500 MG TAB PO STA (20:21)
--- NOTE | 2023-08-10 20:25 | ED ---
GI Bleed HPI - General Chief complaint: GI Bleed Stated complaint: GI Bleed Time Seen by Provider: 08/10/23 16:15 Source: patient Mode of arrival: ambulatory Limitations: no limitations - History of Present Illness Initial comments: 52-year-old female presents emergency department reporting to bright red blood per rectum. States that her symptoms started on Sunday. No history of similar in the past. She does admit to generalized abdominal pain. No rectal pain. States that she has not had a bowel movement in several days. She has been taking several medications including no of mag and stool softeners without success. She denies any fevers. No issues urinating. Mother does have a history of ulcerative colitis. She has had a colonoscopy previously however this was close to 20 years ago. She denies any hematemesis. No fevers. No va ginal bleeding. No other alleviating, precipitating or modifying factors - Related Data Home Medications Medication Instructions Recorded Confirmed Desvenlafaxine Succinate [Pristiq] 100 mg PO DAILY 01/22/19 01/22/19 Dextroamphetamine/Amphetamine 30 mg PO DAILY 01/22/19 01/22/19 [Adderall] Ibuprofen [Motrin Ib] 600 mg PO Q6H PRN 01/22/19 01/22/19 Keto Suppliment 2 cap PO DAILY 01/22/19 01/22/19 Thyroid,Pork [[place] Thyroid] 60 mg PO DIRECTED 01/22/19 01/22/19 busPIRone HCl [Buspar] 10 mg PO DAILY 01/22/19 01/22/19 clonazePAM [KlonoPIN] 1 mg PO HS PRN 01/22/19 01/22/19 Previous Rx's Medication Instructions Recorded Pantoprazole [Protonix] 40 mg PO AC-BRKFST #30 tablet. 01/23/19 amLODIPine [Norvasc] 2.5 mg PO DAILY #30 tablet 01/23/19 Amoxic-Pot Clav 875-125Mg 1 tab PO Q12HR 1 Days #20 tab 08/10/23 [Augmentin 875-125] Allergies Allergy/AdvReac Type Severity Reaction Status Date / Time No Known Allergies Allergy Verified 01/22/19 08:50 Review of Systems ROS Statement: Those systems with pertinent positive or pertinent negative responses have been documented in the HPI. ROS Other: All systems not noted in ROS Statement are negative. Past Medical History Additional Past Medical History / Comment(s): SVT, History of Any Multi-Drug Resistant Organisms: MRSA Date of last positivie culture/infection: 04/05/19 MDRO Source:: Left Axilla Additional Past Surgical History / Comment(s): bladder sling, breast augmentation, cardiac ablation [address] Noble. Past Anesthesia/Blood Transfusion Reactions: No Reported Reaction Past Psychological History: Anxiety, Depression Past Alcohol Use History: Occasional Past Drug Use History: None Reported - Past Family History Mother Additional Family Medical History / Comment(s): Mother at age 57 from lung cancer with history of 2 MIs. Father Additional Family Medical History / Comment(s): Father alive at age 66 with history of COPD and HTN. Patient is an only child. 2 children with no major medical problems. General Exam Limitations: no limitations General appearance: alert, in no apparent distress Head exam: Present: atraumatic, normocephalic, normal inspection Eye exam: Present: normal appearance, PERRL, EOMI. Absent: scleral icterus, conjunctival injection, periorbital swelling ENT exam: Present: normal exam, mucous membranes moist Neck exam: Present: normal inspection. Absent: tenderness, meningismus, lymphadenopathy Respiratory exam: Present: normal lung sounds bilaterally. Absent: respiratory distress, wheezes, rales, rhonchi, stridor Cardiovascular Exam: Present: regular rate, normal rhythm, normal heart sounds. Absent: systolic murmur, diastolic murmur, rubs, gallop, clicks GI/Abdominal exam: Present: soft, normal bowel sounds. Absent: distended, tenderness, guarding, rebound, rigid Rectal exam: Present: normal rectal tone, heme (+) stool, hemorrhoids. Absent: black stool, bloody stool, mass Extremities exam: Present: normal inspection, full ROM, normal capillary refill. Absent: tenderness, pedal edema, joint swelling, calf tenderness Back exam: Present: normal inspection Neurological exam: Present: alert, oriented X3, CN II-XII intact Psychiatric exam: Present: normal affect, normal mood Skin exam: Present: warm, dry, intact, normal color. Absent: rash Course Vital Signs 08/10/23 08/10/23 16:10 20:56 Temperature 98.3 F Pulse Rate 89 80 Respiratory 16 20 Rate Blood Pressure 119/78 121/83 O2 Sat by Pulse 100 98 Oximetry Medical Decision Making - Medical Decision Making Was pt. sent in by a medical professional or institution (, ASTRID, SUPERVISOR [employer]EL[employer], urgent care, hospital, or [facility]...) When possible be specific @ -No Did you speak to anyone other than the patient for history (EMS, parent, family, police, friend...)? What history was obtained from this source @ -No Did you review nursing and triage notes (agree or disagree)? Why? @ -I reviewed and agree with nursing and triage notes Were old charts reviewed (outside hosp., previous admission, EMS record, old EKG, old radiological studies, urgent care reports/EKG's, [facility] records)? Report findings @ -No old charts were reviewed Differential Diagnosis (chest pain, altered mental status, abdominal pain women, abdominal pain men, vaginal bleeding, weakness, fever, dyspnea, syncope, headache, dizziness, GI bleed, back pain, seizure, CVA, palpatations, mental health, musculoskeletal)? @ -Differential GI Bleed: Esophageal varices, aortoenteric fistula, [place], gastritis, peptic ulcer disease, diverticulosis, inflammatory bowel disease, hemorrhoids, fissure, colitis, malignancy, Meckels diverticulum, this is not meant to be an all- inclusive list. EKG interpreted by me (3pts min.). @ -Not done X-rays interpreted by me (1pt min.). @ -None done CT interpreted by me (1pt min.). @ -yes and demonstrates colitis U/S interpreted by me (1pt. min.). @ -None done What testing was considered but not performed or refused? (CT, X-rays, U/S, labs)? Why? @ -None What meds were considered but not given or refused? Why? @ -None Did you discuss the management of the patient with other professionals (professionals i.e. , ASTRID, SUPERVISOR PIPELINE, lab, RT, psych nurse, social services assistant, electronic funds transfer coordinator, teacher, public relations officer, rn field case manager)? Give summary @ -No Was smoking cessation discussed for >3mins.? @ -No Was critical care preformed (if so, how long)? @ -No Were there social determinants of health that impacted care today? How? (Homelessness, low income, unemployed, alcoholism, drug addiction, transportation, low edu. Level, literacy, decrease access to med. care, prison, rehab)? @ -No Was there de-escalation of care discussed even if they declined (Discuss DNR or withdrawal of care, Hospice)? DNR status @ -No What co-morbidities impacted this encounter? (DM, HTN, Smoking, COPD, CAD, Cancer, CVA, ARF, Chemo, Hep., AIDS, mental health diagnosis, sleep apnea, morbid obesity)? @ -None Was patient admitted / discharged? Hospital course, mention meds given and route, prescriptions, significant lab abnormalities, going to OR and other pertinent info. @ -Discharged. Upon arrival patient was placed into room 11. Her history and physical exam was performed. IV is established and laboratory studies were conducted. Patient does go for CT. Rectal exam does not demonstrate gross blood but does demonstrate occult blood. CT demonstrates colitis. Patient will be started on antibiotics. She will be trialed on outpatient antibiotics for her condition. She is to monitor her symptoms. Return should she not have any improvement in 48-72 hours. She will require colonoscopy. Patient agreeable to this plan and was discharged in stable condition Undiagnosed new problem with uncertain prognosis? @ -No Drug Therapy requiring intensive monitoring for toxicity (Heparin, Nitro, Insulin, Cardizem)? @ -No Were any procedures done? @ -No Diagnosis/symptom? @ -Acute hematochezia, acute descending colitis Acute, or Chronic, or Acute on Chronic? @ -Acute Uncomplicated (without systemic symptoms) or Complicated (systemic symptoms)? @ -Complicated Side effects of treatment? @ -No Exacerbation, Progression, or Severe Exacerbation? @ -No Poses a threat to life or bodily function? How? (Chest pain, USA, [place], pneumonia, PE, COPD, DKA, ARF, appy, cholecystitis, CVA, Diverticulitis, Homicidal, Suicidal, threat to staff... and all critical care pts) @ -No - Lab Data Result diagrams: 08/10/23 17:24 08/10/23 17:24 Lab Results 08/10/23 08/10/23 08/10/23 Range/Units 17:24 17:24 17:24 WBC 10.0 (3.8-10.6) k/uL RBC 4.11 (3.80-5.40) m/uL Hgb 12.0 (11.4-16.0) gm/dL Hct 35.8 (34.0-46.0) % MCV 87.1 (80.0-100.0) fL MCH 29.2 (25.0-35.0) pg MCHC 33.5 (31.0-37.0) g/dL RDW 14.9 (11.5-15.5) % Plt Count 325 (150-450) k/uL MPV 7.1 Neutrophils % 75 % Lymphocytes % 16 % Monocytes % 5 % Eosinophils % 2 % Basophils % 1 % Neutrophils # 7.5 (1.3-7.7) k/uL Lymphocytes # 1.6 (1.0-4.8) k/uL Monocytes # 0.5 (0-1.0) k/uL Eosinophils # 0.2 (0-0.7) k/uL Basophils # 0.1 (0-0.2) k/uL PT 10.1 (10.0-12.5) sec INR 0.9 (<1.2) APTT 23.9 (22.0-30.0) sec Sodium 136 L (137-145) mmol/L Potassium 4.1 (3.5-5.1) mmol/L Chloride 102 (98-107) mmol/L Carbon Dioxide 24 (22-30) mmol/L Anion Gap 10 mmol/L BUN 18 H (7-17) mg/dL Creatinine 0.56 (0.52-1.04) mg/dL Est GFR (CKD-EPI)AfAm >90 (>60 ml/min/1.73 sqM) Est GFR (CKD-EPI)NonAf >90 (>60 ml/min/1.73 sqM) Glucose 91 (74-99) mg/dL Plasma Lactic Acid Jose F (0.7-2.0) mmol/L Calcium 8.7 (8.4-10.2) mg/dL Magnesium 1.9 (1.6-2.3) mg/dL Total Bilirubin 0.6 (0.2-1.3) mg/dL AST 25 (14-36) U/L ALT 30 (4-34) U/L Alkaline Phosphatase 74 (38-126) U/L Troponin I (0.000-0.034) ng/mL Total Protein 6.9 (6.3-8.2) g/dL Albumin 4.0 (3.5-5.0) g/dL Stool Occult Blood (Negative) 08/10/23 08/10/23 08/10/23 Range/Units 17:24 17:24 20:00 WBC (3.8-10.6) k/uL RBC (3.80-5.40) m/uL Hgb (11.4-16.0) gm/dL Hct (34.0-46.0) % MCV (80.0-100.0) fL MCH (25.0-35.0) pg MCHC (31.0-37.0) g/dL RDW (11.5-15.5) % Plt Count (150-450) k/uL MPV Neutrophils % % Lymphocytes % % Monocytes % % Eosinophils % % Basophils % % Neutrophils # (1.3-7.7) k/uL Lymphocytes # (1.0-4.8) k/uL Monocytes # (0-1.0) k/uL Eosinophils # (0-0.7) k/uL Basophils # (0-0.2) k/uL PT (10.0-12.5) sec INR (<1.2) APTT (22.0-30.0) sec Sodium (137-145) mmol/L Potassium (3.5-5.1) mmol/L Chloride (98-107) mmol/L Carbon Dioxide (22-30) mmol/L Anion Gap mmol/L BUN (7-17) mg/dL Creatinine (0.52-1.04) mg/dL Est GFR (CKD-EPI)AfAm (>60 ml/min/1.73 sqM) Est GFR (CKD-EPI)NonAf (>60 ml/min/1.73 sqM) Glucose (74-99) mg/dL Plasma Lactic Acid Jose F 0.7 (0.7-2.0) mmol/L Calcium (8.4-10.2) mg/dL Magnesium (1.6-2.3) mg/dL Total Bilirubin (0.2-1.3) mg/dL AST (14-36) U/L ALT (4-34) U/L Alkaline Phosphatase (38-126) U/L Troponin I <0.012 (0.000-0.034) ng/mL Total Protein (6.3-8.2) g/dL Albumin (3.5-5.0) g/dL Stool Occult Blood Positive H (Negative) Disposition Clinical Impression: Hematochezia, Colitis Disposition: HOME SELF-CARE Condition: Stable Instructions (If sedation given, give patient instructions): Gastrointestinal Bleeding (ED), Colitis (ED) Additional Instructions: Please take the antibiotics as directed starting tomorrow. Follow up with the GI doctor. You will need a colonoscopy within the next couple of months. If your symptoms do not improve or you develop fever, return to the emergency department Prescriptions: Amoxic-Pot Clav 875-125Mg [Augmentin 875-125] 1 tab PO Q12HR 1 Days #20 tab Is patient prescribed a controlled substance at d/c from ED?: No Referrals: Tiny Lala DO [Primary Care Provider] - 1-2 days Carly Lopes MD [STAFF PHYSICIAN] - 1-2 days Time of Disposition: 20:23
[2023-08-10 21:10] VITALS: BP 121/83; PULSE 80; RESP 20
== END 2023-08-10 21:02 | disposition home or self-care (01) ==
LOC: EC 16:01
DX: K92.1 Melena (principal); K52.9 Noninfective gastroenteritis and colitis, unspecified; F41.9 Anxiety disorder, unspecified; F32.A Depression, unspecified; Z79.899 Other long term (current) drug therapy
CPT/HCPCS: 36415; 80053; 83605; 83735; 84484; 85025; 85610; 85730; 82272; 74177; 99285; 96374; 96375; J0696; J1885; Q9967

== ENCOUNTER 2023-08-17 11:23 | Day surgery (SDC) | payer BC ==
[2023-08-16 10:28] VITALS: BMI 22.3
[~2023-08-17 11:23] MED LIST: LACTATED RINGERS 1,000 ML IV SCH; LIDOCAINE 1% (10MG/ML) FOR IV START INTRADERMA PRN
[2023-08-17 11:57] LABS: Glucose,Whole Blood 92 mg/dL (70-110)
[2023-08-17 12:19] VITALS: TEMP 97.9
[2023-08-17] MEDS ORDERED: PROPOFOL 10 MG/ML 20 ML VIAL IV ONE (12:44)
[2023-08-17] MEDS ORDERED: LIDOCAINE 1% INJ 10MG/ML (20 ML MDV) ONE (12:44)
--- NOTE | 2023-08-17 13:07 | P.PCN ---
Date of Procedure: 08/17/23 Procedure(s) Performed: BRIEF HISTORY: Patient is a 52-year-old pleasant white female scheduled for an elective colonoscopy as a part of evaluation of acute onset of lower abdominal pain and rectal bleeding 2 weeks ago for which she went to the emergency room and had a CT of abdomen which showed thickening of the descending colon all the proximal sigmoid colon suspicious for acute colitis. She was treated with antibiotics and was discharged home. . Her symptoms are resolved now. PROCEDURE PERFORMED: Colonoscopy. PREOPERATIVE DIAGNOSIS: Recent episode of acute colitis. IV sedation per Anesthesia. PROCEDURE: After informed consent was obtained, the patient, was brought into the endoscopy unit. IV sedation was administered by Anesthesia under continuous monitoring. Digital rectal examination was normal. Initially the Olympus CF-160 flexible video colonoscope was then inserted in the rectum, gradually advanced into the cecum without any difficulty. Careful examination was performed as the scope was gradually being withdrawn. Ileocecal valve and the appendiceal orifice were visualized and appeared normal. Prep was excellent. Mucosa of the cecum, ascending colon, transverse colon, descending colon, sigmoid colon, and rectum appeared normal. Retroflexion was performed in the rectum and no lesions were seen. The patient tolerated the procedure well. IMPRESSION: Normal-appearing colon from rectum to cecum with no evidence of active colitis or colorectal neoplasia. RECOMMENDATIONS: Findings of this examination were discussed with the patient is well as her family. She Recent episode of acute colitis is completely resolved.was advised to be a high-fiber diet and take fiber supplements a regular basis. Admit repeat screening colonoscopy in 10 years..
[2023-08-17 13:58] VITALS: BP 124/78; PULSE 78; RESP 16
== END 2023-08-17 13:47 | disposition home or self-care (01) ==
LOC: ORWHC2ENDO 11:23
PROVIDERS: ATTEND Internal Medicine Gastroenterology
DX: K62.5 Hemorrhage of anus and rectum (principal); I47.10 Supraventricular tachycardia, unspecified; F41.9 Anxiety disorder, unspecified; F32.A Depression, unspecified; Z79.2 Long term (current) use of antibiotics; Z79.899 Other long term (current) drug therapy; Z86.79 Personal history of other diseases of the circulatory system
CPT/HCPCS: 45378; J2001; J2704

== ENCOUNTER 2023-10-13 01:16 | Emergency (ER) | payer BC ==
[2023-10-13 01:24] VITALS: BP 152/102; PULSE 98; RESP 18; TEMP 98.7
--- NOTE | 2023-10-13 02:34 | ED ---
Upper Extremity HPI - General Chief Complaint: Extremity Injury, Upper Stated Complaint: [facility] - Left Arm Injury Time Seen by Provider: 10/13/23 01:34 Source: patient Mode of arrival: ambulatory Limitations: no limitations - History of Present Illness Initial Comments: 52-year-old female presenting with chief complaint of left arm pain. Patient is a nurse, works at our facility. States that she was attempting to catch a falling patient when her left forearm was hit against the door frame. This occurred around 2200. She has some swelling near the elbow. She has full range of motion of the elbow wrist and fingers. No discoloration. No numbness tingling or weakness. - Related Data Home Medications Medication Instructions Recorded Confirmed Desvenlafaxine Succinate [Pristiq] 50 mg PO DAILY 01/22/19 08/17/23 Dextroamphetamine/Amphetamine 30 mg PO DAILY 01/22/19 08/17/23 [Adderall] clonazePAM [KlonoPIN] 1 mg PO HS PRN 01/22/19 08/17/23 Naltrexone Microspheres [Vivitrol] 380 mg IM Q30D 08/16/23 08/17/23 QUEtiapine [SEROquel] 200 mg PO HS 08/16/23 08/17/23 Semaglutide [Wegovy] 2.4 mg SQ WEEKLY 08/16/23 08/17/23 Previous Rx's Medication Instructions Recorded Amoxic-Pot Clav 875-125Mg 1 tab PO Q12HR 1 Days #20 tab 08/10/23 [Augmentin 875-125] Allergies Allergy/AdvReac Type Severity Reaction Status Date / Time No Known Allergies Allergy Verified 08/17/23 11:44 Review of Systems ROS Statement: Those systems with pertinent positive or pertinent negative responses have been documented in the HPI. ROS Other: All systems not noted in ROS Statement are negative. Past Medical History Past Medical History: GI Bleed Additional Past Medical History / Comment(s): SVT, abdominal pain infection? ruling out colitis History of Any Multi-Drug Resistant Organisms: MRSA Date of last positivie culture/infection: 04/05/19 MDRO Source:: Left Axilla Past Surgical History: Bladder Surgery, Breast Surgery, Cardiac Ablation, Orthopedic Surgery Additional Past Surgical History / Comment(s): bladder sling, breast augmentation, cardiac ablation [address]., colonoscopy , mini abdominalplasty, britney carpal tunnel Past Anesthesia/Blood Transfusion Reactions: No Reported Reaction Past Psychological History: Anxiety, Depression Past Alcohol Use History: None Reported - Past Family History Mother Additional Family Medical History / Comment(s): Mother at age 57 from lung cancer with history of 2 MIs. Father Additional Family Medical History / Comment(s): Father alive at age 66 with history of COPD and HTN. Patient is an only child. 2 children with no major medical problems. General Exam Limitations: no limitations General appearance: alert, in no apparent distress Head exam: Present: atraumatic, normocephalic Eye exam: Present: normal appearance, EOMI Neck exam: Present: normal inspection Respiratory exam: Absent: respiratory distress Cardiovascular Exam: Present: regular rate Left Forearm Wrist exam: Present: full ROM, tenderness, swelling. Absent: deformity, erythema Vascular: Absent: vascular compromise Neurological exam: Present: alert, oriented X3 Psychiatric exam: Present: normal affect, normal mood Skin exam: Present: warm, dry Course Vital Signs 10/13/23 01:18 Temperature 98.7 F Pulse Rate 98 Respiratory 18 Rate Blood Pressure 152/102 O2 Sat by Pulse 97 Oximetry Medical Decision Making - Medical Decision Making Was pt. sent in by a medical professional or institution (, PA, NEWSROOM INTERN, urgent care, hospital, or residential...) When possible be specific @ -No Did you speak to anyone other than the patient for history (EMS, parent, family, police, friend...)? What history was obtained from this source @ -No Did you review nursing and triage notes (agree or disagree)? Why? @ -I reviewed and agree with nursing and triage notes Were old charts reviewed (outside hosp., previous admission, EMS record, old EKG, old radiological studies, urgent care reports/EKG's, residential records)? Report findings @ -No old charts were reviewed Differential Diagnosis (chest pain, altered mental status, abdominal pain women, abdominal pain men, vaginal bleeding, weakness, fever, dyspnea, syncope, headache, dizziness, GI bleed, back pain, seizure, CVA, palpatations, mental health, musculoskeletal)? @ -Differential Musculoskeletal Muscular strain, contusion, ligament sprain, fracture, arthritis, septic arthritis, bursitis, cellulitis, muscle spasm, nerve compression, DVT, arterial occlusion, herpes zoster, electrolyte abnormality, tumor.... This is not meant to be in all inclusive list EKG interpreted by me (3pts min.). @ -As above X-rays interpreted by me (1pt min.). @ -By my interpretation forearm x-ray shows no acute fracture or dislocation. Formal report is pending CT interpreted by me (1pt min.). @ -None done U/S interpreted by me (1pt. min.). @ -None done What testing was considered but not performed or refused? (CT, X-rays, U/S, labs)? Why? @ -None What meds were considered but not given or refused? Why? @ -None Did you discuss the management of the patient with other professionals (professionals i.e. , PA, NEWSROOM INTERN, lab, RT, psych nurse, secondary social studies teacher, community director, teacher, community resource officer, nurse case management)? Give summary @ -No Was smoking cessation discussed for >3mins.? @ -No Was critical care preformed (if so, how long)? @ -No Were there social determinants of health that impacted care today? How? (Homelessness, low income, unemployed, alcoholism, drug addiction, transportation, low edu. Level, literacy, decrease access to med. care, [facility], rehab)? @ -No Was there de-escalation of care discussed even if they declined (Discuss DNR or withdrawal of care, Hospice)? DNR status @ -No What co-morbidities impacted this encounter? (DM, HTN, Smoking, COPD, CAD, Cancer, CVA, ARF, Chemo, Hep., AIDS, mental health diagnosis, sleep apnea, morbid obesity)? @ -None Was patient admitted / discharged? Hospital course, mention meds given and route, prescriptions, significant lab abnormalities, going to OR and other pertinent info. @ -60-year-old female presenting with chief complaint of left forearm injury. Patient hit the arm against the door while trying to catch a falling patient at work. She is neurovascularly intact. Full range of motion at the level of the elbow wrist and fingers. By my interpretation x-ray shows no acute fracture or dislocation. Formal report is pending. Patient is requesting discharge and to be notified of any positive results. Discharged home. Follow-up with PCP. Report back to ER with any new or worsening symptoms. Discussed return parameters and answered all questions. Patient conveyed verbal understanding and agreed to the plan. I discussed this case in detail with my attending Dr. Monsalve Undiagnosed new problem with uncertain prognosis? @ -No Drug Therapy requiring intensive monitoring for toxicity (Heparin, Nitro, Insulin, Cardizem)? @ -No Were any procedures done? @ -No Diagnosis/symptom? @ -Forearm strain Acute, or Chronic, or Acute on Chronic? @ -Acute Uncomplicated (without systemic symptoms) or Complicated (systemic symptoms)? @ -Uncomplicated Side effects of treatment? @ -No Exacerbation, Progression, or Severe Exacerbation? @ -No Poses a threat to life or bodily function? How? (Chest pain, USA, [place], pneumonia, PE, COPD, DKA, ARF, appy, cholecystitis, CVA, Diverticulitis, Homicidal, Suicidal, threat to staff... and all critical care pts) @ -No Disposition Clinical Impression: Arm injury Disposition: HOME SELF-CARE Condition: Good Instructions (If sedation given, give patient instructions): Arm Pain (ED) Additional Instructions: Follow-up with PCP. Report back to ER with any new or worsening symptoms. Is patient prescribed a controlled substance at d/c from ED?: No Referrals: Janine Bird DO [Primary Care Provider] - 1-2 days Time of Disposition: 02:34
--- NOTE | 2023-10-13 05:58 | XR ---
EXAM: XR Left Forearm, 2 Views CLINICAL HISTORY: ITS.REASON XR Reason: injury TECHNIQUE: Frontal and lateral views of the left forearm. COMPARISON: No relevant prior studies available. FINDINGS: Bones/joints: Unremarkable. No acute fracture. No dislocation. Soft tissues: Unremarkable. IMPRESSION: Normal left forearm x-rays.
== END 2023-10-13 02:38 | disposition home or self-care (01) ==
LOC: EC 01:16
DX: S56.912A Strain of unspecified muscles, fascia and tendons at forearm level, left arm, initial encounter (principal); F41.9 Anxiety disorder, unspecified; F32.A Depression, unspecified; Z79.899 Other long term (current) drug therapy; W18.09XA Striking against other object with subsequent fall, initial encounter; Y99.0 Civilian activity done for income or pay
CPT/HCPCS: 99283

== ENCOUNTER → 2023-11-07 | Outpatient (CLI) | payer OTHER ==
--- NOTE | 2023-11-07 13:52 | XR ---
EXAMINATION TYPE: XR elbow complete LT DATE OF EXAM: 11/07/2023 CLINICAL HISTORY: pain TECHNIQUE: Frontal, lateral and oblique images of the left elbow are obtained. COMPARISON: None. FINDINGS: There is no acute fracture/dislocation evident of the elbow. No abnormal fat pad signs ar e seen. The overlying soft tissue appears unremarkable. IMPRESSION: There is no acute fracture or dislocation of the elbow. ICD 10 NO FRACTURE, INITIAL EVALUATION
== END | disposition home or self-care (01) ==
LOC: RADXRMAIN 13:27
PROVIDERS: ATTEND Emergency Medicine
DX: S53.402A Unspecified sprain of left elbow, initial encounter (principal); X58.XXXA Exposure to other specified factors, initial encounter

== ENCOUNTER → 2023-11-13 | Outpatient (CLI) | payer BC ==
--- NOTE | 2023-11-13 14:36 | XR ---
EXAMINATION TYPE: XR Hip LT and AP Pelvis DATE OF EXAM: 11/13/2023 COMPARISON: NONE HISTORY: Left hip pain. Impression: There is no fracture, subluxation or dislocation. The joint spaces are preserved.
== END | disposition home or self-care (01) ==
LOC: RADXRMAIN 13:48
PROVIDERS: ATTEND Family Medicine
DX: M25.552 Pain in left hip (principal); G57.02 Lesion of sciatic nerve, left lower limb
CPT/HCPCS: 73502

== ENCOUNTER → 2023-11-14 | Outpatient (CLI) | payer OTHER ==
--- NOTE | 2023-11-15 07:35 | MR ---
EXAMINATION TYPE: MR elbow LT wo con DATE OF EXAM: 11/14/2023 COMPARISON: Radiograph 11/07/2023 HISTORY: 52-year-old female S53.402A, Left elbow pain and swelling with limited movement TECHNIQUE: Multiplanar, multisequence images of the left elbow were obtained without IV contrast. FINDINGS: No acute or healing fracture is seen. The distal biceps tendon is intact as is the triceps insertion. Mild intermediate signal at the triceps insertion suggests insertional tendinosis. There is some mild increased signal at the brachialis insertion onto the proximal ulna, axial image 1 1. No significant joint effusion. There is intrasubstance signal at the common extensor tendon origin measuring 4 x 3 mm suggesting a t iny intrasubstance tear. The underlying LCL appears intact. There is soft tissue edema along the medial aspect of the elbow extending posteriorly to the cubital fossa. There is fluid signal undercutting the humeral attachment of the anterior band of the UCL. The overlying common flexor tendon origin appears intact. There is increased signal and mild thickening of the ulnar nerve just adjacent and slightly more prox imal with a cross-sectional area of nearly 13 sq mm. No suspicious bone marrow replacement. The brachial neurovascular bundle appears normal. IMPRESSION: 1. Correlate for medial instability; findings suggest tear/rupture of the UCL at its humeral attachme nt. Associated soft tissue swelling and possible mild contusion of the adjacent ulnar nerve. 2. Tiny intrasubstance tear (4 x 3 mm) at the common extensor tendon origin. 3. Mild insertional triceps tendinosis as well as mild insertional brachialis tendinosis.
== END | disposition home or self-care (01) ==
LOC: RADMRIMAIN 21:15
PROVIDERS: ATTEND Emergency Medicine
DX: S53.402A Unspecified sprain of left elbow, initial encounter (principal); X58.XXXA Exposure to other specified factors, initial encounter; M25.522 Pain in left elbow

== ENCOUNTER 2023-12-18 01:21 | Observation (INO) | payer BC, OTHER ==
[2023-12-18 01:53] LABS: Basophils # (A) 0.1 k/uL (0-0.2); Basophils % (A) 1 %; Eosinophils # (A) 0.4 k/uL (0-0.7); Eosinophils % (A) 6 %; HGB 13.5 gm/dL (11.4-16.0); Lymphocytes # (A) 2.6 k/uL (1.0-4.8); Lymphocytes % (A) 36 %; MCHC 35.5 g/dL (31.0-37.0); MCV 87.2 fL (80.0-100.0); Mean Platelet Volume 8.5; Monocytes # (A) 0.5 k/uL (0-1.0); Monocytes % (A) 7 %; Neutrophils # (A) 3.5 k/uL (1.3-7.7); Neutrophils % (A) 48 %; Platelet Count 255 k/uL (150-450); RBC 4.36 m/uL (3.80-5.40); RDW 13.8 % (11.5-15.5); WBC 7.3 k/uL (3.8-10.6)
[2023-12-18 02:01] LABS: ALT 309 U/L (4-34); African American GFR (CKD) >90 (>60 ml/min/1.73 sqM); Albumin 4.4 g/dL (3.5-5.0); Amylase 79 U/L (30-110); Anion Gap 6 mmol/L; Blood Urea Nitrogen 12 mg/dL (7-17); Calcium 9.4 mg/dL (8.4-10.2); Carbon Dioxide 32 mmol/L (22-30); Chloride 105 mmol/L (98-107); Glucose 84 mg/dL (74-99); Lipase 312 U/L (23-300); Non-African American GFR(CKD) >90 (>60 ml/min/1.73 sqM); Sodium 143 mmol/L (137-145); Total Bilirubin 1.1 mg/dL (0.2-1.3); Total Protein 7.5 g/dL (6.3-8.2)
[2023-12-18 02:08] LABS: Amorphous Sediment,Urine Rare /hpf; Appearance,Urine Cloudy (Clear); Bacteria,Urine Rare /hpf; Bilirubin,Urine Negative (Negative); Blood,Urine Small (Negative); Calcium Oxalate Crystals,Urine Rare /hpf; Color,Urine Colorless; Glucose,Urine (UA) Negative (Negative); Hyaline Casts,Urine 1 /lpf (0-2); Ketones,Urine Negative (Negative); Leukocyte Esterase,Urine Large (Negative); Mucus,Urine Rare /hpf; Nitrite,Urine Negative (Negative); Protein,Urine Negative (Negative); RBC,Urine 7 /hpf (0-5); Specific Gravity,Urine 1.015 (1.001-1.035); Squamous Epithelial Cell,Urine 2 /hpf (0-4); Urobilinogen,Urine <2.0 mg/dL (<2.0); WBC,Urine 28 /hpf (0-5)
[2023-12-18 02:13] LABS: AST 187 U/L (14-36); Alkaline Phosphatase 96 U/L (38-126); Potassium 4.5 mmol/L (3.5-5.1)
--- NOTE | 2023-12-18 02:22 | ED ---
Abdominal Pain HPI <Azul Monsalve Raúl - Last Filed: 12/22/23 22:26> - General Source: patient, RN notes reviewed, old records reviewed Mode of arrival: ambulatory Limitations: no limitations - History of Present Illness MD Complaint: abdominal pain -: days(s) Location: RUQ, suprapubic, R flank Radiation: RUQ, back Migration to: R flank Severity: severe Severity scale (1-10): 9 Quality: cramping, stabbing Consistency: intermittent Improves With: nothing Worsens With: nothing Associated Symptoms: nausea, vomiting Treatments Prior to Arrival: other (0) <Jose Krueger - Last Filed: 12/25/23 23:22> - General Chief Complaint: Abdominal Pain Stated Complaint: Abd pain Time Seen by Provider: 12/18/23 02:21 - History of Present Illness Initial Comments: This is a 53-year-old female to the ER for evaluation abdominal pain epigastric abdominal pain to the back right-sided flank pain right-sided abdominal pain. Episodic pain for a few days now with severe nausea vomiting tonight at work. Patient has no history of abdominal surgery. No travel history or sick contacts no fevers (Jose Krueger) - Related Data Home Medications Medication Instructions Recorded Confirmed clonazePAM [KlonoPIN] 1 mg PO HS PRN 01/22/19 12/18/23 QUEtiapine [SEROquel] 50 mg PO HS 08/16/23 12/18/23 Atorvastatin [Lipitor] 20 mg PO DAILY 12/18/23 12/18/23 Brexpiprazole [Rexulti] 2 mg PO DAILY 12/18/23 12/18/23 Lisdexamfetamine Dimesylate 50 mg PO DAILY 12/18/23 12/18/23 [Vyvanse] Tirzepatide [Zepbound] 2.5 mg SQ WE 12/18/23 12/18/23 Previous Rx's Medication Instructions Recorded Pantoprazole Sodium [Protonix] 40 mg PO DAILY #30 tab 12/20/23 Sennosides-Docusate Sodium 2 each PO DAILY tab 12/20/23 [Senokot-S] Allergies Allergy/AdvReac Type Severity Reaction Status Date / Time No Known Allergies Allergy Verified 12/18/23 10:28 Review of Systems ROS Other: All systems not noted in ROS Statement are negative. <Azul Monsalve Raúl - Last Filed: 12/22/23 22:26> ROS Other: All systems not noted in ROS Statement are negative. <Jose Krueger Mariola - Last Filed: 12/25/23 23:22> ROS Statement: Those systems with pertinent positive or pertinent negative responses have been documented in the HPI. Past Medical History Past Medical History: GI Bleed Additional Past Medical History / Comment(s): SVT, abdominal pain infection? ruling out colitis History of Any Multi-Drug Resistant Organisms: MRSA Date of last positivie culture/infection: 04/05/19 MDRO Source:: Left Axilla Past Surgical History: Bladder Surgery, Breast Surgery, Cardiac Ablation, Orthopedic Surgery Additional Past Surgical History / Comment(s): bladder sling, breast augmentation, cardiac ablation [address] Noble., colonoscopy , mini abdominalplasty, britney carpal tunnel Past Anesthesia/Blood Transfusion Reactions: No Reported Reaction Past Psychological History: Anxiety, Depression Smoking Status: Never smoker Past Alcohol Use History: None Reported Past Drug Use History: None Reported - Past Family History Mother Additional Family Medical History / Comment(s): Mother at age 57 from lung cancer with history of 2 MIs. Father Additional Family Medical History / Comment(s): Father alive at age 66 with history of COPD and HTN. Patient is an only child. 2 children with no major medical problems. <EvansJose Mariola - Last Filed: 12/25/23 23:22> General Exam Limitations: no limitations General appearance: alert, in no apparent distress Head exam: Present: atraumatic, normocephalic, normal inspection Eye exam: Present: normal appearance, PERRL, EOMI. Absent: scleral icterus, conjunctival injection, periorbital swelling ENT exam: Present: normal exam, mucous membranes moist Neck exam: Present: normal inspection. Absent: tenderness, meningismus, lymphadenopathy Respiratory exam: Present: normal lung sounds bilaterally. Absent: respiratory distress, wheezes, rales, rhonchi, stridor Cardiovascular Exam: Present: regular rate, normal rhythm, normal heart sounds. Absent: systolic murmur, diastolic murmur, rubs, gallop, clicks GI/Abdominal exam: Present: soft, normal bowel sounds. Absent: distended, tenderness, guarding, rebound, rigid Extremities exam: Present: normal inspection, full ROM, normal capillary refill. Absent: tenderness, pedal edema, joint swelling, calf tenderness Back exam: Present: normal inspection Neurological exam: Present: alert, oriented X3, CN II-XII intact Psychiatric exam: Present: normal affect, normal mood Skin exam: Present: warm, dry, intact, normal color. Absent: rash <Jose Krueger - Last Filed: 12/25/23 23:22> Course <Jose Krueger - Last Filed: 12/25/23 23:22> Vital Signs 12/18/23 12/18/23 12/18/23 01:24 02:24 03:58 Temperature 98 F Pulse Rate 91 81 79 Respiratory 20 16 16 Rate Blood Pressure 151/106 139/81 128/87 O2 Sat by Pulse 100 97 97 Oximetry 12/18/23 12/18/23 12/18/23 05:54 08:22 10:30 Temperature 97.9 F Pulse Rate 70 76 73 Respiratory 16 18 16 Rate Blood Pressure 108/68 100/60 112/86 O2 Sat by Pulse 97 100 96 Oximetry 12/18/23 12/18/23 12/18/23 11:02 12:20 14:30 Temperature 98.0 F 97.6 F Pulse Rate 69 72 89 Respiratory 17 18 17 Rate Blood Pressure 108/63 103/61 111/67 O2 Sat by Pulse 95 96 99 Oximetry 12/18/23 12/18/23 12/18/23 16:00 17:04 18:00 Temperature 97.9 F 97.6 F Pulse Rate 76 74 78 Respiratory 17 17 16 Rate Blood Pressure 105/71 122/77 91/64 O2 Sat by Pulse 97 96 97 Oximetry 12/18/23 12/18/23 12/18/23 20:00 20:14 21:58 Temperature 97.9 F 98.4 F Pulse Rate 85 84 Respiratory 16 18 Rate Blood Pressure 116/85 103/68 103/68 O2 Sat by Pulse 97 97 Oximetry 12/19/23 00:19 Temperature Pulse Rate 57 L Respiratory 18 Rate Blood Pressure 103/74 O2 Sat by Pulse 100 Oximetry - Reevaluation(s) Reevaluation #1: 12/18/23 03:07 Medical records reviewed (Jose Krueger) Reevaluation #2: 12/18/23 03:07 Patient symptoms improved (Jose Krueger) Reevaluation #5: Differential Abdominal Pain Women: Appendicitis, Cholecystitis, diverticulosis, ischemic bowel, pancreatitis, hepatitis, UTI, gastroenteritis, AAA, incarcerated hernia, bowel obstruction, constipation, inflammatory bowel, hepatitis, peptic ulcer disease, splenic infarction, perforated viscus, vulvitis, ovarian torsion, PID, kidney stone, placenta abruption, this is not meant to be an all-inclusive list (Jose Krueger) Medical Decision Making - Lab Data Result diagrams: 12/19/23 07:33 12/19/23 07:33 <Azul Monsalve - Last Filed: 12/22/23 22:26> - Lab Data Result diagrams: 12/19/23 07:33 12/19/23 07:33 <Jose Krueger - Last Filed: 12/25/23 23:22> - Medical Decision Making Was pt. sent in by a medical professional or institution (, PA, RUG WASHER, urgent care, hospital, or senior living...) When possible be specific @ -No Did you speak to anyone other than the patient for history (EMS, parent, family, police, friend...)? What history was obtained from this source @ -No Did you review nursing and triage notes (agree or disagree)? Why? @ -I reviewed and agree with nursing and triage notes Were old charts reviewed (outside hosp., previous admission, EMS record, old EKG, old radiological studies, urgent care reports/EKG's, senior living records)? Report findings @ -No old charts were reviewed Differential Diagnosis (chest pain, altered mental status, abdominal pain women, abdominal pain men, vaginal bleeding, weakness, fever, dyspnea, syncope, headache, dizziness, GI bleed, back pain, seizure, CVA, palpatations, mental health, musculoskeletal)? @ -Differential Abdominal Pain Women: Appendicitis, Cholecystitis, diverticulosis, ischemic bowel, pancreatitis, hepatitis, UTI, gastroenteritis, AAA, incarcerated hernia, bowel obstruction, constipation, inflammatory bowel, hepatitis, peptic ulcer disease, splenic infarction, perforated viscus, vulvitis, ovarian torsion, PID, kidney stone, placenta abruption, this is not meant to be an all-inclusive list EKG interpreted by me (3pts min.). @ -As above X-rays interpreted by me (1pt min.). @ -None done CT interpreted by me (1pt min.). @ -Yes and demonstrates no acute process U/S interpreted by me (1pt. min.). @ -Yes and demonstrates dilation of the common bile duct What testing was considered but not performed or refused? (CT, X-rays, U/S, labs)? Why? @ -None What meds were considered but not given or refused? Why? @ -None Did you discuss the management of the patient with other professionals (professionals i.e. [facility], PA, RUG WASHER, lab, RT, psych nurse, social worker palliative care, smelter operator, teacher, youth corrections officer, foster care case manager)? Give summary @ -Spoke with Dr. Lopes and Dr. Morgan. Patient request to be admitted to Dr. morgan Was smoking cessation discussed for >3mins.? @ -No Was critical care preformed (if so, how long)? @ -No Were there social determinants of health that impacted care today? How? (Homelessness, low income, unemployed, alcoholism, drug addiction, transportati on, low edu. Level, literacy, decrease access to med. care, alf, rehab)? @ -No Was there de-escalation of care discussed even if they declined (Discuss DNR or withdrawal of care, Hospice)? DNR status @ -No What co-morbidities impacted this encounter? (DM, HTN, Smoking, COPD, CAD, Cancer, CVA, ARF, Chemo, Hep., AIDS, mental health diagnosis, sleep apnea, morbid obesity)? @ -None Was patient admitted / discharged? Hospital course, mention meds given and route, prescriptions, significant lab abnormalities, going to OR and other pertinent info. @ -Patient was seen and evaluated by Dr. krueger. Patient was signed out to me pending ultrasound. Ultrasound does demonstrate dilated common bile duct. Called and spoke with Dr. Morgan. Spoke with Dr. Lopes. Patient will be admitted for further workup Undiagnosed new problem with uncertain prognosis? @ -No Drug Therapy requiring intensive monitoring for toxicity (Heparin, Nitro, Insulin, Cardizem)? @ -No Were any procedures done? @ -No Diagnosis/symptom? @ -Acute epigastric abdominal pain, common bile duct dilation, transaminitis Acute, or Chronic, or Acute on Chronic? @ -Acute Uncomplicated (without systemic symptoms) or Complicated (systemic symptoms)? @ -Complicated Side effects of treatment? @ -No Exacerbation, Progression, or Severe Exacerbation? @ -No Poses a threat to life or bodily function? How? (Chest pain, USA, ND, pneumonia, PE, COPD, DKA, ARF, appy, cholecystitis, CVA, Diverticulitis, Homicidal, Suicidal, threat to staff... and all critical care pts) @ -No (Azul Monsalve) - Lab Data Lab Results 12/18/23 12/18/23 12/18/23 Range/Units 01:43 01:43 01:43 WBC 7.3 (3.8-10.6) k/uL RBC 4.36 (3.80-5.40) m/uL Hgb 13.5 (11.4-16.0) gm/dL Hct 38.0 (34.0-46.0) % MCV 87.2 (80.0-100.0) fL MCH 31.0 (25.0-35.0) pg MCHC 35.5 (31.0-37.0) g/dL RDW 13.8 (11.5-15.5) % Plt Count 255 (150-450) k/uL MPV 8.5 Neutrophils % 48 % Lymphocytes % 36 % Monocytes % 7 % Eosinophils % 6 % Basophils % 1 % Neutrophils # 3.5 (1.3-7.7) k/uL Lymphocytes # 2.6 (1.0-4.8) k/uL Monocytes # 0.5 (0-1.0) k/uL Eosinophils # 0.4 (0-0.7) k/uL Basophils # 0.1 (0-0.2) k/uL Sodium 143 (137-145) mmol/L Potassium 4.5 (3.5-5.1) mmol/L Chloride 105 (98-107) mmol/L Carbon Dioxide 32 H (22-30) mmol/L Anion Gap 6 mmol/L BUN 12 (7-17) mg/dL Creatinine 0.66 (0.52-1.04) mg/dL Est GFR (CKD-EPI)AfAm >90 (>60 ml/min/1.73 sqM) Est GFR (CKD-EPI)NonAf >90 (>60 ml/min/1.73 sqM) Glucose 84 (74-99) mg/dL Calcium 9.4 (8.4-10.2) mg/dL Total Bilirubin 1.1 (0.2-1.3) mg/dL AST 187 H (14-36) U/L ALT 309 H (4-34) U/L Alkaline Phosphatase 96 (38-126) U/L Total Protein 7.5 (6.3-8.2) g/dL Albumin 4.4 (3.5-5.0) g/dL Amylase 79 (30-110) U/L Lipase 312 H (23-300) U/L Urine Color Colorless Urine Appearance Cloudy H (Clear) Urine pH 7.0 (5.0-8.0) Ur Specific [place] 1.015 (1.001-1.035) Urine Protein Negative (Negative) Urine Glucose (UA) Negative (Negative) Urine Ketones Negative (Negative) Urine Blood Small H (Negative) Urine Nitrite Negative (Negative) Urine Bilirubin Negative (Negative) Urine Urobilinogen <2.0 (<2.0) mg/dL Ur Leukocyte Esterase Large H (Negative) Urine RBC 7 H (0-5) /hpf Urine WBC 28 H (0-5) /hpf Ur Squamous Epith Cells 2 (0-4) /hpf Calcium Oxalate Crystal Rare H (None) /hpf Amorphous Sediment Rare H (None) /hpf Urine Bacteria Rare H (None) /hpf Hyaline Casts 1 (0-2) /lpf Urine Mucus Rare H (None) /hpf Hepatitis A IgM Ab (Nonreactive) Hep Bs Antigen (Nonreactive) Hep B Core IgM Ab (Nonreactive) Hep C IgG Ab (Nonreactive) 12/18/23 Range/Units 01:43 WBC (3.8-10.6) k/uL RBC (3.80-5.40) m/uL Hgb (11.4-16.0) gm/dL Hct (34.0-46.0) % MCV (80.0-100.0) fL MCH (25.0-35.0) pg MCHC (31.0-37.0) g/dL RDW (11.5-15.5) % Plt Count (150-450) k/uL MPV Neutrophils % % Lymphocytes % % Monocytes % % Eosinophils % % Basophils % % Neutrophils # (1.3-7.7) k/uL Lymphocytes # (1.0-4.8) k/uL Monocytes # (0-1.0) k/uL Eosinophils # (0-0.7) k/uL Basophils # (0-0.2) k/uL Sodium (137-145) mmol/L Potassium (3.5-5.1) mmol/L Chloride (98-107) mmol/L Carbon Dioxide (22-30) mmol/L Anion Gap mmol/L BUN (7-17) mg/dL Creatinine (0.52-1.04) mg/dL Est GFR (CKD-EPI)AfAm (>60 ml/min/1.73 sqM) Est GFR (CKD-EPI)NonAf (>60 ml/min/1.73 sqM) Glucose (74-99) mg/dL Calcium (8.4-10.2) mg/dL Total Bilirubin (0.2-1.3) mg/dL AST (14-36) U/L ALT (4-34) U/L Alkaline Phosphatase (38-126) U/L Total Protein (6.3-8.2) g/dL Albumin (3.5-5.0) g/dL Amylase (30-110) U/L Lipase (23-300) U/L Urine Color Urine Appearance (Clear) Urine pH (5.0-8.0) Ur Specific [place] (1.001-1.035) Urine Protein (Negative) Urine Glucose (UA) (Negative) Urine Ketones (Negative) Urine Blood (Negative) Urine Nitrite (Negative) Urine Bilirubin (Negative) Urine Urobilinogen (<2.0) mg/dL Ur Leukocyte Esterase (Negative) Urine RBC (0-5) /hpf Urine WBC (0-5) /hpf Ur Squamous Epith Cells (0-4) /hpf Calcium Oxalate Crystal (None) /hpf Amorphous Sediment (None) /hpf Urine Bacteria (None) /hpf Hyaline Casts (0-2) /lpf Urine Mucus (None) /hpf Hepatitis A IgM Ab Nonreactive (Nonreactive) Hep Bs Antigen Nonreactive (Nonreactive) Hep B Core IgM Ab Nonreactive (Nonreactive) Hep C IgG Ab Nonreactive (Nonreactive) Disposition Is patient prescribed a controlled substance at d/c from ED?: No Time of Disposition: 09:33 Decision to Admit Reason: Admit from EC Decision Date: 12/18/23 Decision Time: :33 <Azul Monsalve - Last Filed: 12/22/23 22:26> Is patient prescribed a controlled substance at d/c from ED?: No <Jose Krueger - Last Filed: 12/25/23 23:22> Clinical Impression: Epigastric pain, Transaminitis, Common bile duct dilatation, Chest pain, Abdominal pain Disposition: ADMITTED IP TO THIS HOSP Condition: Stable
[2023-12-18] MEDS: AMPICILLIN-SULBACTAM 3 GM in SODIUM CHLORIDE 0.9% 100 ML IVPB STA (02:30)
[2023-12-18] MEDS: SODIUM CHLORIDE 0.9% 1,000 ML IV STA (02:31)
[2023-12-18] MEDS: ONDANSETRON 4 MG/2 ML VIAL IVP STA (02:31)
[2023-12-18] MEDS: KETOROLAC 15 MG/ML 1 ML VIAL IVP STA (02:32)
[2023-12-18] MEDS: HYDROmorphone 0.5 MG/0.5 ML SYRINGE IVP STA (02:32)
--- NOTE | 2023-12-18 03:46 | CT ---
EXAM: CT Abdomen and Pelvis With Intravenous Contrast CLINICAL HISTORY: ITS.REASON CT Reason: pain TECHNIQUE: Axial computed tomography images of the abdomen and pelvis with intravenous contrast. CTDI is 6.9 mGy and DLP is 563.2 mGy-cm. This CT exam was performed using one or more of the following dose reduction techniques: automated exposure control, adjustment of the mA and/or kV according to patient size, and/or use of iterative reconstruction technique. COMPARISON: No relevant prior studies available. FINDINGS: Lung bases: Unremarkable. No mass. No consolidation. ABDOMEN: Liver: Unremarkable. No mass. Gallbladder and bile ducts: Unremarkable. No calcified stones. No ductal dilation. Pancreas: Unremarkable. No mass. No ductal dilation. Spleen: Unremarkable. No splenomegaly. Adrenals: Unremarkable. No mass. Kidneys and ureters: Unremarkable. No solid mass. No hydronephrosis. Stomach and bowel: Unremarkable. No obstruction. No mucosal thickening. PELVIS: Appendix: No findings to suggest acute appendicitis. Bladder: Unremarkable. No mass. Reproductive: Unremarkable as visualized. ABDOMEN and PELVIS: Intraperitoneal space: Unremarkable. No free air. No significant fluid collection. Bones/joints: No acute fracture. No dislocation. Soft tissues: Unremarkable. Vasculature: Unremarkable. No abdominal aortic aneurysm. Lymph nodes: Unremarkable. No enlarged lymph nodes. IMPRESSION: Normal abdomen and pelvis CT.
[2023-12-18] MEDS: QUEtiapine 25 MG TAB PO STA (04:34)
--- NOTE | 2023-12-18 08:06 | US ---
EXAMINATION TYPE: US gallbladder DATE OF EXAM: 12/18/2023 COMPARISON: CT 2023, US 2019 CLINICAL INDICATION: Female, 53 years old with history of pain; RUQ pain x couple days TECHNIQUE: Multiple sonographic images of the right upper quadrant are obtained. FINDINGS: EXAM MEASUREMENTS: Liver Length: 15.4 cm Gallbladder Wall: 0.2 cm CBD: 0.8 cm Right Kidney: 9.3 x 4.5 x 4.6 cm Pancreas: visualized portions wnl, limited by overlying midline bowel gas Liver: wnl Gallbladder: wnl Evidence for sonographic Wiley's sign: no CBD: dilated Right Kidney: wnl IMPRESSION: 1. Prominent common bile duct. No obstructing etiology evident.
[2023-12-18] MEDS ORDERED: NALOXONE 0.4 MG/ML 1 ML VIAL IV PRN (09:40)
[2023-12-18] MEDS ORDERED: ONDANSETRON 4 MG/2 ML VIAL IVP PRN (09:40)
[2023-12-18] MEDS: HYDROmorphone 1 MG/ML 1 ML SYRINGE IVP PRN (09:58)
[2023-12-18] MEDS: QUEtiapine 200 MG TAB PO STA (10:00)
[2023-12-18] MEDS: SODIUM CHLORIDE 0.9% 1,000 ML IV SCH (10:32)
--- NOTE | 2023-12-18 15:25 | P.CONS ---
History of Present Illness - Reason for Consult Consult date: 12/18/23 Epigastric pain Requesting physician: Azul Monsalve - Chief Complaint abdominal pain - History of Present Illness This is a pleasant 53-year-old female who presented to the emergency department with complaints of right upper quadrant abdominal pain. Patient states abdom inal pain started on Sunday on her way down to a [employer] game it was severe however it had subsided. She went to work yesterday and then she again had the right upper quadrant and epigastric pain which she states was quite severe. She states no nausea or vomiting associated with the pain. She came to the emergency department and was noted to have elevated LFTs as well. She had a CT of the abdomen and pelvis that showed no acute findings. She had a ultrasound of the gallbladder that showed mild dilation of the common bile duct measuring at 0.8 cm, no obstructing etiology evident. Gallbladder and liver within normal limits. Patient does have a history of alcohol abuse in the past however states that she quit drinking for several months. Admitting labs WBC 7.3 hemoglobin 13.5 platelet count 255,000 sodium 143 potassium 4.5 BUN 12 creatinine 0.6 total bilirubin 1.1 AST 187 ALT 309 alkaline phosphatase 96 amylase 79 lipase 312. Review of Systems REVIEW OF SYSTEMS: CARDIOPULMONARY: No chest pain or shortness of breath. Gastrointestinal: Abdominal pain mostly in the right upper quadrant. Sharp severe, improved with pain medication. No nausea or vomiting. No hematemesis, coffee-ground emesis. No rectal bleeding, or melena. GENITOURINARY: No dysuria or hematuria. MUSCULOSKELETAL: Reports normal range of motion. SKIN: No rashes. No jaundice. ENDOCRINE: No chills, fevers. No excessive weight gain or loss. No polydipsia or polyuria. PSYCHIATRIC: Unremarkable. NEUROLOGY: No change in mental status. Denies dizziness, headache. ENT: Vision unremarkable. CONSTITUTIONAL: No recent weight loss. No fever, chills, night sweats. Past Medical History Past Medical History: GI Bleed Additional Past Medical History / Comment(s): SVT, abdominal pain infection? ruling out colitis History of Any Multi-Drug Resistant Organisms: MRSA Year Discovered:: 04/05/19 MDRO Source:: Left Axilla Past Surgical History: Bladder Surgery, Breast Surgery, Cardiac Ablation, Orthopedic Surgery Additional Past Surgical History / Comment(s): bladder sling, breast augmentation, cardiac ablation [address] Noble., colonoscopy , mini abdominalplasty, britney carpal tunnel Past Anesthesia/Blood Transfusion Reactions: No Reported Reaction Past Psychological History: Anxiety, Depression Smoking Status: Never smoker Past Alcohol Use History: None Reported Past Drug Use History: None Reported - Past Family History Mother Additional Family Medical History / Comment(s): Mother at age 57 from lung cancer with history of 2 MIs. Father Additional Family Medical History / Comment(s): Father alive at age 66 with history of COPD and HTN. Patient is an only child. 2 children with no major medical problems. Medications and Allergies Home Medications Medication Instructions Recorded Confirmed Type clonazePAM [KlonoPIN] 1 mg PO HS PRN 01/22/19 12/18/23 History QUEtiapine [SEROquel] 50 mg PO HS 08/16/23 12/18/23 History Atorvastatin [Lipitor] 20 mg PO DAILY 12/18/23 12/18/23 History Brexpiprazole [Rexulti] 2 mg PO DAILY 12/18/23 12/18/23 History Lisdexamfetamine Dimesylate 50 mg PO DAILY 12/18/23 12/18/23 History [Vyvanse] Tirzepatide [Zepbound] 2.5 mg SQ WE 12/18/23 12/18/23 History Allergies Allergy/AdvReac Type Severity Reaction Status Date / Time No Known Allergies Allergy Verified 12/18/23 10:28 Physical Exam Vitals: Vital Signs Temp Pulse Resp BP Pulse Ox 12/18/23 12:20 98.0 F 72 18 103/61 96 12/18/23 11:02 69 17 108/63 95 12/18/23 10:30 97.9 F 73 16 112/86 96 12/18/23 08:22 76 18 100/60 100 12/18/23 05:54 70 16 108/68 97 12/18/23 03:58 79 16 128/87 97 12/18/23 02:24 81 16 139/81 97 12/18/23 01:24 98 F 91 20 151/106 100 Intake and Output 12/17/23 12/18/23 12/18/23 22:59 06:59 14:59 Other: Weight 56.699 kg General appearance: The patient is alert, oriented, appears in no acute distress. HET: Head is normocephalic and atraumatic. Conjunctiva pink. Sclera anicteric. Neck: Supple without lymphadenopathy. Trachea midline. Heart: Regular. Lungs: Equal expansion, normal respiratory effort. Abdomen: Soft, nontender, nondistended with bowel sounds. No guarding or rigidity. Skin: No rashes. No jaundice. Extremities: Normal skin color and turgor. No pedal edema. Neurological: No focal deficits. Alert and oriented x3. Results CBC & Chem 7: 12/18/23 01:43 12/18/23 01:43 Labs: Abnormal Lab Results - Last 24 Hours (Table) 12/18/23 12/18/23 Range/Units 01:43 01:43 Carbon Dioxide 32 H (22-30) mmol/L AST 187 H (14-36) U/L ALT 309 H (4-34) U/L Lipase 312 H (23-300) U/L Urine Appearance Cloudy H (Clear) Urine Blood Small H (Negative) Ur Leukocyte Esterase Large H (Negative) Urine RBC 7 H (0-5) /hpf Urine WBC 28 H (0-5) /hpf Calcium Oxalate Crystal Rare H (None) /hpf Amorphous Sediment Rare H (None) /hpf Urine Bacteria Rare H (None) /hpf Urine Mucus Rare H (None) /hpf Comments: CT of the abdomen and pelvis that showed no acute findings Ultrasound of the gallbladder that showed mild dilation of the common bile duct measuring at 0.8 cm, no obstructing etiology evident. Gallbladder and liver within normal limits. Assessment and Plan (1) Abdominal pain Narrative/Plan: 53-year-old female presenting with abdominal pain mostly in the right upper quadrant/epigastric region which she rates sharp and intense which began 2 days ago. Pain is relieved with pain medication and not associated with any nausea or vomiting. She was noted to have elevated AST and ALT. Does have a history of alcohol dependence in the past but admits to quitting a few months ago. She also does have a history of constipation and diarrhea. States few weeks ago she had constipation and then she had diarrhea for 4 to 5 days. Those symptoms have now resolved. She has been on a new medication called Zepbound which she started about 3 weeks ago for weight loss. She did have mild elevation in her lipase at 312, however no evidence of pancreatitis on CT scan. However need to consider possibility of medication induced mild pancreatitis. Will repeat LFTs and lipase tomorrow. Will get MRCP as well. provide Further recommendations forthcoming based on clinical course. Current Visit: Yes Status: Acute Code(s): R10.9 - UNSPECIFIED ABDOMINAL PAIN SNOMED Code(s): 71468299 (2) Transaminitis Current Visit: Yes Status: Acute Code(s): R74.01 - ELEVATION OF LEVELS OF LIVER TRANSAMINASE LEVELS SNOMED Code(s): 818108234 Plan: 1. Continue symptomatic and supportive care 2. Patient may have low-fat diet, n.p.o. after midnight 3. Repeat CMP, lipase tomorrow 4. MRCP ordered 5. Protonix 40 mg daily for GI prophylaxis 6. Further recommendations forthcoming based on clinical course Thank you for this consultation, we will continue to follow. Dr. Bryce Lopes I agree with the dictator's note, documented as a scribe by Edwina Izaguirre.
--- NOTE | 2023-12-18 19:26 | P.HPIM ---
History of Present Illness H&P Date: 12/18/23 HISTORY OF PRESENT ILLNESS: This is a 53-year-old female patient of [facility], Janine Bird, with past medical history of attention deficit disorder, anxiety and depressive disorder, history of chronic alcohol use and dependence patient quit drinking in April, patient presented to the emergency department at [facility] early hours in the morning today because of right upper quadrant midepigastric abdominal pain that was intense associated with increased nausea but no vomiting apparently the patient stated that she has been having issues with her bowel habits she was severely constipated and she ended up going for diarrhea after 6 days from not having a bowel movement she stated that she has been on Wegovy at 2.4 mg subcutaneously for weight control, and she was recently switched about a week ago to step down to a 2.5 mg once every day, she has been complaining of severe diarrhea since she was started on this medication, and she was feeling a bit nauseated with more heartburn, however the patient stated that she was going to the [employer] on Sunday and while she was there she suffered from severe right upper quadrant abdominal pain she was doub led over, according to her she manage just to watch the game and she went back home, she ended up going 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, and suddenly she developed to have a significant right upper quadrant abdominal pain at that time so she ended up coming to the ER for evaluation, patient had a CT scan of the abdomen and pelvis did not show evidence of acute abnormalities, she had an ultrasound of the gallbladder that showed evidence of mild dilatation of the common bile duct at 0.8centimeter, patient did require quite a bit of pain medication to control her pain, she did have a slight elevation of AST and ALT, she had slight elevation of lipase, because of the presentation there is a concern about possible a passed stone and common bile duct stone, and possibility of acute pancreatitis due to the recent change in her medications was about, patient was admitted to the hospital she was started on IV fluid resuscitation she was initially on n.p.o. at and then we will advance her diet as tolerated from clear liquid diet she will be seen in consultation by GI for further evaluation recommendation patient will likely need to go for an MRCP with and without yuli for further evaluation and recommendations. REVIEW OF SYSTEMS: Constitutional: No documented fever, no chills, no night sweats. No weight change. No weakness, fatigue or lethargy. No daytime sleepiness. EENT: No headache. No blurred vision or double vision, no loss of vision. No loss of Hearing, no ringing in the ears, no dizziness. No nasal drainage or congestion. No epistaxis. No sore throat. Lungs: No shortness of breath, no cough, no sputum production. No wheezing. Reports dyspnea with activity. Cardiovascular: No chest pain, no lower extremity edema. No palpitations. No paroxysmal nocturnal dyspnea. No orthopnea. No lightheadedness or dizziness. No syncopal episodes. Abdominal: Reports abdominal pain. No nausea, vomiting. positive for diarrhea, positive for constipation. No bloody or tarry stools reports loss of appetite. Genitourinary: No dysuria, increased frequency, urgency. No urinary retention. Musculoskeletal: No myalgias. No muscle weakness, no gait dysfunction, no frequent falls. No back pain. No neck pain. Integumentary: No wounds, no lesions. No rash or pruritus. No unusual bruising. No change in hair or nails. Neurologic: No aphasia. No facial droop. No change in mentation. No head injury. No headache. No paralysis. No paresthesia. Psychiatric: positive for depression. positive for anxiety. No mood swings. Endocrine: No abnormal blood sugars. No weight change. PAST MEDICAL HISTORY: Anxiety Depression. ADD. Chronic alcohol use [quit] Mixed hyperlipidemia SVT status postcardiac ablation. PAST SURGICAL HISTORY: Carpal tunnel release bilaterally Breast augmentation Abdominoplasty Cardiac ablation 2009 for SVT. SOCIAL HISTORY: Patient is a lifelong non-smoker, she used to drink heavily however she quit drinking in April of last year, she has not had a drop of alcohol ever since, she denies any drug use or abuse, she lives with her , she works in the mental health unit. FAMILY HISTORY: Father is alive with history of hypertension as well as COPD, mother at age of 57 from non-small cell lung cancer and she also had history of CAD post [place], patient is the only child, patient has a son with anxiety and a daughter with cardiac surgery. PHYSICAL EXAMINATION: General: 53-year-old female laying down in bed in no apparent distress. HEENT: Head is atraumatic, normocephalic, pupils were equal round reactive to light and recommendation, extraocular muscle movement were intact, sclera nonicteric, conjunctivae were pale, mucous membranes of the mouth are somewhat dry. Neck: Supple, no JVP, normal carotid upstroke bilaterally, no lymphadenopathy. Chest: Decreased breath sounds at the bases, few rhonchi, no expiratory wheezes, no chest wall tenderness, no intercostal retractions. Heart: First heart sound is normal, second heart sound is normal there is no gallop or murmur. Abdomen: Soft, mild tenderness in the right upper quadrant to the mid epigastric area no rebound or guarding, nondistended, positive bowel sounds, no hepatosplenomegaly. Extremities: There is no edema, no calf tenderness DP +2 bilaterally. Neurologic examination: Patient is awake alert and oriented x3 , cranial nerves II-12 appear grossly intact, muscle power were 5 out of 5 in upper extremities and 5 out of 5 in bilateral lower extremities, deep tendon reflexes normal bilaterally. ASSESSMENT AND PLAN: 1. Right upper quadrant abdominal pain with mildly dilated common bile duct at 0.8 cm. Possibilities could be passed common bile duct stone since the patient has a residual elevation of her AST and ALT and slight elevation of the lipase, the other possibility could be recent change of her GLP-1 receptor agonist in the form of Zepbound 2.5 mg subcutaneously once every week on Sunday, that could be triggering a very mild pancreatitis even though the CT scan of the abdomen pelvis did not show evidence of any acute pancreatitis at this time, we will start the patient on IV fluid resuscitation in the form of normal saline 75 cc an hour, continue with Zofran 4 mg IV push every 6 hours as needed, continue Protonix 40 mg IV push every 24 hours, start the patient on clear liquid diet, advance as tolerated, GI consultation from Dr. Jane, patient will likely need to go for MRCP with and without YULI. 2. Transaminitis of unclear etiology check the patient MRCP and monitor the patient very closely, this is could be related to medication use. CT scan of the abdomen pelvis did not show evidence of acute abnormalities so is the ultrasound of the abdomen except for mild dilatation of the common bile duct. 3. Anxiety and depressive disorder. Continue patient on Rexulti 2 mg orally once every day, Seroquel 50 mg at bedtime, continue patient on Klonopin 1 mg at bedtime as well. 4. Attention deficit disorder. Continue Vyvanse 50 mg orally once every day. 5. History of SVT status postcardiac ablation 2009. 6. Mixed hyperlipidemia. Continue patient on atorvastatin 20 mg orally once every day. 7. DVT prophylaxis. Early ambulation bilateral knee-high HELLEN hose. 8. GI prophylaxis. Continue Protonix 40 mg IV push every 24 hours. 9. Admit to inpatient. Estimated length of stay 2 midnights. 10. Patient is full code. Past Medical History Past Medical History: GI Bleed Additional Past Medical History / Comment(s): SVT, abdominal pain infection? ruling out colitis History of Any Multi-Drug Resistant Organisms: MRSA Date of last positivie culture/infection: 04/05/19 MDRO Source:: Left Axilla Past Surgical History: Bladder Surgery, Breast Surgery, Cardiac Ablation, Orthopedic Surgery Additional Past Surgical History / Comment(s): bladder sling, breast a ugmentation, cardiac ablation [address] Noble., colonoscopy , mini abdominalplasty, britney carpal tunnel Past Anesthesia/Blood Transfusion Reactions: No Reported Reaction Past Psychological History: Anxiety, Depression Smoking Status: Never smoker Past Alcohol Use History: None Reported Past Drug Use History: None Reported - Past Family History Mother Additional Family Medical History / Comment(s): Mother at age 57 from lung cancer with history of 2 MIs. Father Additional Family Medical History / Comment(s): Father alive at age 66 with history of COPD and HTN. Patient is an only child. 2 children with no major medical problems. Medications and Allergies Home Medications Medication Instructions Recorded Confirmed Type clonazePAM [KlonoPIN] 1 mg PO HS PRN 01/22/19 12/18/23 History QUEtiapine [SEROquel] 50 mg PO HS 08/16/23 12/18/23 History Atorvastatin [Lipitor] 20 mg PO DAILY 12/18/23 12/18/23 History Brexpiprazole [Rexulti] 2 mg PO DAILY 12/18/23 12/18/23 History Lisdexamfetamine Dimesylate 50 mg PO DAILY 12/18/23 12/18/23 History [Vyvanse] Tirzepatide [Zepbound] 2.5 mg SQ WE 12/18/23 12/18/23 History Allergies Allergy/AdvReac Type Severity Reaction Status Date / Time No Known Allergies Allergy Verified 12/18/23 10:28 Physical Exam Vitals: Vital Signs Temp Pulse Resp BP Pulse Ox 12/18/23 12:20 98.0 F 72 18 103/61 96 12/18/23 11:02 69 17 108/63 95 12/18/23 10:30 97.9 F 73 16 112/86 96 12/18/23 08:22 76 18 100/60 100 12/18/23 05:54 70 16 108/68 97 12/18/23 03:58 79 16 128/87 97 12/18/23 02:24 81 16 139/81 97 12/18/23 01:24 98 F 91 20 151/106 100 Intake and Output 12/17/23 12/18/23 12/18/23 22:59 06:59 14:59 Other: Weight 56.699 kg Results CBC & Chem 7: 12/18/23 01:43 12/18/23 01:43 Labs: Abnormal Lab Results - Last 24 Hours (Table) 12/18/23 12/18/23 Range/Units 01:43 01:43 Carbon Dioxide 32 H (22-30) mmol/L AST 187 H (14-36) U/L ALT 309 H (4-34) U/L Lipase 312 H (23-300) U/L Urine Appearance Cloudy H (Clear) Urine Blood Small H (Negative) Ur Leukocyte Esterase Large H (Negative) Urine RBC 7 H (0-5) /hpf Urine WBC 28 H (0-5) /hpf Calcium Oxalate Crystal Rare H (None) /hpf Amorphous Sediment Rare H (None) /hpf Urine Bacteria Rare H (None) /hpf Urine Mucus Rare H (None) /hpf
[2023-12-18] MEDS: QUEtiapine 50 MG TAB PO SCH (20:13)
[2023-12-18 21:29] LABS: Hepatitis A Antibody IgM Nonreactive (Nonreactive); Hepatitis B Core IgM Nonreactive (Nonreactive); Hepatitis B Surface Antigen Nonreactive (Nonreactive); Hepatitis C IgG Antibody Nonreactive (Nonreactive)
[2023-12-19 11:20] LABS: Basophils # (A) 0.06 X 10*3/uL (0.00-0.10); Basophils % (A) 0.5 %; Eosinophils # (A) 0.45 X 10*3/uL (0.04-0.35); Eosinophils % (A) 3.5 %; HCT 37.5 % (37.2-46.3); HGB 12.1 g/dL (12.0-15.0); Lymphocytes # (A) 2.32 X 10*3/uL (0.90-5.00); Lymphocytes % (A) 18.1 %; MCH 29.4 pg (27.0-32.0); MCHC 32.3 g/dL (32.0-37.0); Mean Platelet Volume 9.9 FL (9.5-12.2); Monocytes # (A) 0.73 X 10*3/uL (0.20-1.00); Monocytes % (A) 5.7 %; NRBC Per 100 WBC 0 X 10*3/uL (0.00-0.01); Neutrophils # (A) 9.23 X 10*3/uL (1.80-7.70); Platelet Count 312 X 10*3/uL (140-440); RBC 4.12 X 10*6/uL (4.10-5.20); RDW 13.5 % (11.5-14.5); WBC 12.81 X 10*3/uL (4.50-10.00)
[2023-12-19 11:32] LABS: ALT 268 U/L (8-44); AST 121 U/L (13-35); Albumin 3.8 g/dL (3.8-4.9); Albumin/Globulin Ratio 1.81 Ratio (1.60-3.17); Alkaline Phosphatase 115 U/L (41-126); BUN/Creat Ratio 9.71 Ratio (12.00-20.00); Blood Urea Nitrogen 6.8 mg/dL (9.0-27.0); Calcium 8.6 mg/dL (8.7-10.3); Carbon Dioxide 28.6 mmol/L (21.6-31.8); Chloride 104 mmol/L (96-109); Globulin 2.1 g/dL (1.6-3.3); Glucose 88 mg/dL (70-110); Potassium 4.5 mmol/L (3.5-5.5); Sodium 142 mmol/L (135-145); Total Bilirubin 0.8 mg/dL (0.3-1.2); Total Protein 5.9 g/dL (6.2-8.2)
--- NOTE | 2023-12-19 11:33 | MR ---
EXAMINATION TYPE: MR MRCP DATE OF EXAM: 12/19/2023 11:00 AM CLINICAL INDICATION:Female, 53 years old with history of abdominal pain, CBD dilation, Abdominal pain COMPARISON: 07/07/2015 TECHNIQUE: Multi planar, T2-weighted imaging with and without fat saturation and chemical shift imag ing was performed of the abdomen. Then, heavily T2 weighted imaging (half-Fourier acquisition single- shot turbo spin-echo) was utilized in order to study the biliary system. Maximum intensity projectio n images were reconstructed from the original data of the biliary tree. 3D images were created on [employer] work station. No Gadolinium given. FINDINGS: Lower Thorax: No evidence for acute process. Bilateral breast implants appear intact. Trace bilateral pleural effusions. MRCP: * The intrahepatic ducts have a normal appearance. * The common bile duct at the level of the pancreatic head measures 3 mm in size. * The common hepatic duct measures 8 mm in size. Previous 5 millimeters in 2015. * The pancreatic duct is normal. * The gallbladder appears unremarkable. No cholelithiasis visualized. Abdomen: Liver: Simple appearing high T2 signal cysts. No suspicious observations. Pancreas: Unremarkable. Spleen: Unremarkable. Adrenal glands: Unremarkable. Kidneys: No obstructive uropathy or renal cysts. Stomach and Bowel: Unremarkable as visualized. Peritoneum: No evidence of pneumoperitoneum or free fluid. Vasculature: Unremarkable. No aortic aneurysm. Musculoskeletal: The osseous structures appear intact. Lymph Nodes: No gross evidence for lymphadenopathy. Abdominal wall: Unremarkable. IMPRESSION: Mild dilation of the common hepatic bile duct which is mildly progressed from 2015. No evidence to reyez ggest ductal stricture, choledocholithiasis, or biliary ductal dilatation.
[2023-12-19] MEDS: KETOROLAC 15 MG/ML 1 ML VIAL IVP PRN (11:41)
[2023-12-19] MEDS ORDERED: KETOROLAC 15 MG/ML 1 ML VIAL IVP SCH (12:00)
[2023-12-19] MEDS: TIRZEPATIDE 2.5 MG/0.5 ML SQ SCH (13:17)
[2023-12-19] MEDS: ATORVASTATIN 20 MG TAB PO SCH (13:51)
[2023-12-19] MEDS: NON FORMULARY DRUG (Lisdexamfetamine Dimesylate [Vyvanse] 50 MG Capsule) PO SCH (13:51)
[2023-12-19] MEDS: NON FORMULARY DRUG (Brexpiprazole [Rexulti] 2 MG Tablet) PO SCH (13:51)
[2023-12-19] MEDS: ACETAMINOPHEN TAB 325 MG TAB PO PRN (14:12)
--- NOTE | 2023-12-19 18:39 | P.PN ---
Subjective Progress Note Date: 12/19/23 HISTORY OF PRESENT ILLNESS: This is a 53-year-old female patient of [facility], Jan[facility], with past medical history of attention deficit disorder, anxiety and depressive disorder, history of chronic alcohol use and dependence patient quit drinking in April, patient presented to the emergency department at [facility] early hours in the morning today because of right upper quadrant midepigastric abdominal pain that was intense associated with increased nausea but no vomiting apparently the patient stated that she has been having issues with her bowel habits she was severely constipated and she ended up going for diarrhea after 6 days from not having a bowel movement she stated that she has been on Wegovy at 2.4 mg subcutaneously for weight control, and she was recently switched about a week ago to step down to a 2.5 mg once every day, she has been complaining of severe diarrhea since she was started on this medication, and she was feeling a bit nauseated with more heartburn, however the patient stated that she was going to the [employer] on Sunday and while she was there she suffered from severe right upper quadrant abdominal pain she was doubled over, according to her she manage just to watch the game and she went back home, she ended up going 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, and suddenly she developed to have a significant right upper quadrant abdominal pain at that time so she ended up com ing to the ER for evaluation, patient had a CT scan of the abdomen and pelvis did not show evidence of acute abnormalities, she had an ultrasound of the gallbladder that showed evidence of mild dilatation of the common bile duct at 0.8centimeter, patient did require quite a bit of pain medication to control her pain, she did have a slight elevation of AST and ALT, she had slight elevation of lipase, because of the presentation there is a concern about possible a passed stone and common bile duct stone, and possibility of acute pancreatitis due to the recent change in her medications was about, patient was admitted to the hospital she was started on IV fluid resuscitation she was initially on n.p.o. at and then we will advance her diet as tolerated from clear liquid diet she will be seen in consultation by GI for further evaluation recommendation patient will likely need to go for an MRCP with and without jaylin for further evaluation and recommendations. 12/18: Patient was seen by gastroenterology, underwent MRCP with and without jaylin, that showed no evidence of any stone or any mass at the common bile duct it did show evidence of slight dilatation of the common bile duct and hepatic duct the common hepatic duct of 5 mm and the common bile duct at 8 mm, patient did eat yesterday she had some abdominal pain after that, at this stage I believe patient should stay off GLP-1 receptor agonist at this time her lipase is slightly elevated, her liver enzymes are better, bilirubin is normal, alkaline phosphatase is normal, will continue to monitor the patient very closely for another 24 hours, repeat her labs tomorrow morning, and will advance her diet as tolerated if she is tolerating her diet very well she can be discharged home and follow-up with GI as an outpatient. REVIEW OF SYSTEMS: Constitutional: No documented fever, no chills, no night sweats. No weight change. No weakness, fatigue or lethargy. No daytime sleepiness. EENT: No headache. No blurred vision or double vision, no loss of vision. No loss of Hearing, no ringing in the ears, no dizziness. No nasal drainage or congestion. No epistaxis. No sore throat. Lungs: No shortness of breath, no cough, no sputum production. No wheezing. Reports dyspnea with activity. Cardiovascular: No chest pain, no lower extremity edema. No palpitations. No paroxysmal nocturnal dyspnea. No orthopnea. No lightheadedness or dizziness. No syncopal episodes. Abdominal: Reports abdominal pain. No nausea, vomiting. positive for diarrhea, positive for constipation. No bloody or tarry stools reports loss of appetite. Genitourinary: No dysuria, increased frequency, urgency. No urinary retention. Musculoskeletal: No myalgias. No muscle weakness, no gait dysfunction, no frequent falls. No back pain. No neck pain. Integumentary: No wounds, no lesions. No rash or pruritus. No unusual bruising. No change in hair or nails. Neurologic: No aphasia. No facial droop. No change in mentation. No head injury. No headache. No paralysis. No paresthesia. Psychiatric: positive for depression. positive for anxiety. No mood swings. Endocrine: No abnormal blood sugars. No weight change. PHYSICAL EXAMINATION: General: 53-year-old female laying down in bed in no apparent distress. HEENT: Head is atraumatic, normocephalic, pupils were equal round reactive to light and recommendation, extraocular muscle movement were intact, sclera nonicteric, conjunctivae were pale, mucous membranes of the mouth are somewhat dry. Neck: Supple, no JVP, normal carotid upstroke bilaterally, no lymphadenopathy. Chest: Decreased breath sounds at the bases, few rhonchi, no expiratory wheezes, no chest wall tenderness, no intercostal retractions. Heart: First heart sound is normal, second heart sound is normal there is no gallop or murmur. Abdomen: Soft, mild tenderness in the right upper quadrant to the mid epigastric area no rebound or guarding, nondistended, positive bowel sounds, no hepatosplenomegaly. Extremities: There is no edema, no calf tenderness DP +2 bilaterally. Neurologic examination: Patient is awake alert and oriented x3 , cranial nerves II-12 appear grossly intact, muscle power were 5 out of 5 in upper extremities and 5 out of 5 in bilateral lower extremities, deep tendon reflexes normal bilaterally. ASSESSMENT AND PLAN: 1. Right upper quadrant abdominal pain with mildly dilated common bile duct at 0.8 cm. Possibilities could be passed common bile duct stone since the patient has a residual elevation of her AST and ALT and slight elevation of the lipase, the other possibility could be recent change of her GLP-1 receptor agonist in the form of Zepbound 2.5 mg subcutaneously once every week on Sunday, that could be triggering a very mild pancreatitis even though the CT scan of the abdomen pelvis did not show evidence of any acute pancreatitis at this time, we will start the patient on IV fluid resuscitation in the form of normal saline 75 cc an hour, continue with Zofran 4 mg IV push every 6 hours as needed, continue Protonix 40 mg IV push every 24 hours, MRCP did not show evidence of acute stone or mass in the common bile duct, mild dilatation of the common bile duct as well as the hepatic duct without evidence of acute obstruction. Advance diet as tolerated, repeat labs tomorrow morning and patient can be discharged home in the morning. 2. Transaminitis of unclear etiology check the patient MRCP and monitor the patient very closely, this is could be related to medication use. CT scan of the abdomen pelvis did not show evidence of acute abnormalities so is the ultrasound of the abdomen except for mild dilatation of the common bile duct. 3. Anxiety and depressive disorder. Continue patient on Rexulti 2 mg orally once every day, Seroquel 50 mg at bedtime, continue patient on Klonopin 1 mg at bedtime as well. 4. Attention deficit disorder. Continue Vyvanse 50 mg orally once every day. 5. History of SVT status postcardiac ablation 2009. 6. Mixed hyperlipidemia. Continue patient on atorvastatin 20 mg orally once every day. 7. DVT prophylaxis. Early ambulation bilateral knee-high HELLEN hose. 8. GI prophylaxis. Continue Protonix 40 mg IV push every 24 hours. 9. Labs tomorrow morning and then home after that if she is stable. Objective - Vital Signs Vital signs: Vital Signs Temp 99.3 F 12/19/23 15:00 Pulse 105 H 12/19/23 15:00 Resp 16 12/19/23 15:00 BP 156/89 12/19/23 15:00 Pulse Ox 99 12/19/23 15:00 FiO2 Intake & Output 12/18/23 12/19/23 12/19/23 18:59 06:59 18:59 Intake Total 120 Balance 120 Weight 56.699 kg Intake: Oral 120 Other: Voiding Method Toilet # Voids 1 - Labs CBC & Chem 7: 12/19/23 07:33 12/19/23 07:33 Labs: Abnormal Lab Results - Last 24 Hours (Table) 12/19/23 12/19/23 Range/Units 07:33 07:33 WBC 12.81 H (4.50-10.00) X 10*3/uL Neutrophils # 9.23 H (1.80-7.70) X 10*3/uL Eosinophils # 0.45 H (0.04-0.35) X 10*3/uL BUN 6.8 L (9.0-27.0) mg/dL BUN/Creatinine Ratio 9.71 L (12.00-20.00) Ratio Calcium 8.6 L (8.7-10.3) mg/dL AST 121 H (13-35) U/L ALT 268 H (8-44) U/L Total Protein 5.9 L (6.2-8.2) g/dL
[2023-12-19] MEDS: clonazePAM 1 MG TAB PO PRN (19:59)
[2023-12-20] MEDS: SENNOSIDES-DOCUSATE SODIUM 1 EACH TAB PO SCH (08:00)
[2023-12-20] MEDS ORDERED: PROPOFOL 10 MG/ML 20 ML VIAL IV ONE (13:31)
[2023-12-20] MEDS ORDERED: LIDOCAINE 1% INJ 10MG/ML (20 ML MDV) ONE (13:31)
[2023-12-20] MEDS: SODIUM CHLORIDE 0.9% 500 ML 500 ML IV ONE (13:32)
--- NOTE | 2023-12-20 13:45 | P.PCN ---
Date of Procedure: 12/20/23 Procedure(s) Performed: BRIEF HISTORY: Patient is a 53-year-old, pleasant, white female scheduled for an upper endoscopy as a part of evaluation of severe epigastric pain for the last 3-4 days duration. PROCEDURE PERFORMED: Esophagogastroduodenoscopy with biopsy. PREOPERATIVE DIAGNOSIS: Severe epigastric pain. IV sedation per anesthesia. PROCEDURE: After informed consent was obtained, the patient was brought into the endoscopy unit. IV sedation was administered by Anesthesia under continuous monitoring. Initially the Olympus GIF-140 video endoscope was inserted into the mouth. Esophagus intubated without any difficulty. It was gradually advanced into the stomach and duodenum and carefully examined. The bulb and the second part of the duodenum appeared normal. The scope at this time was withdrawn to the stomach, adequately insufflated with air, and upon careful examination, mucosa of the antrum,had mild gastritis and biopsies were done from this area. There were small gastric polyps in the gastric body which were biopsied. Rest of the body, cardia and the fundus appeared normal. The scope was then withdrawn into the esophagus. The GE junction was located at 39 cm from the incisors. The esophagus appeared normal. There were no erosions or ulcerations seen and the patient tolerated the procedure well. IMPRESSION: 1. Mild antral gastritis. 2. Small gastric polyps. RECOMMENDATIONS: The findings of this examination were discussed with the patient .. Continue with Protonix 40 mg twice daily. Advance diet as tolerated.
[2023-12-20] MEDS ORDERED: HYDROmorphone 0.5 MG/0.5 ML SYRINGE IVP PRN (14:40)
[2023-12-20] MEDS: LACTATED RINGERS 1,000 ML IV SCH (14:48)
[2023-12-20] MEDS: DEXAMETHASONE SOD PHOSPHATE 4 MG/ML 1 ML VIAL IV ONE (14:48)
[2023-12-20] MEDS: ONDANSETRON 4 MG/2 ML VIAL IVP ONE (14:49)
[2023-12-20 15:12] VITALS: BP 146/95; PULSE 99; RESP 16; TEMP 98
--- NOTE | 2023-12-20 16:16 | P.DS ---
Providers Date of admission: 12/18/23 09:42 Expected date of discharge: 12/20/23 Attending physician: Liu Montalvo Consults: 12/18/23 09:40 Consult Physician Urgent Consulting Provider: Carly Lopes Consult Reason/Comments: acute epigastric pain, transaminitis Do you want consulting provider notified?: Yes Primary care physician: Jainne Bird DO Hospital Course: HISTORY OF PRESENT ILLNESS: This is a 53-year-old female patient of [facility], Janine Bird, with past medical history of attention deficit disorder, anxiety and depressive disorder, history of chronic alcohol use and dependence patient quit drinking in April, patient presented to the emergency department at [facility] early hours in the morning today because of right upper quadrant midepigastric abdominal pain that was intense associated with increased nausea but no vomiting apparently the patient stated that she has been having issues with her bowel habits she was severely constipated and she ended up going for diarrhea after 6 days from not having a bowel movement she stated that she has been on Wegovy at 2.4 mg subcutaneously for weight control, and she was recently switched about a week ago to step down to a 2.5 mg once every day, she has been complaining of severe diarrhea since she was started on this medication, and she was feeling a bit nauseated with more heartburn, however the patient stated that she was going to the [employer] on Sunday and while she was there she suffered from severe right upper quadrant abdominal pain she was doubled over, according to her she manage just to watch the game and she went back home, she ended up going 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, and suddenly she developed to have a significant right upper quadrant abdominal pain at that time so she ended up coming to the ER for evaluation, patient had a CT scan of the abdomen and pelvis did not show evidence of acute abnormalities, she had an ultrasound of the gallbladder that showed evidence of mild dilatation of the common bile duct at 0.8centimeter, patient did require quite a bit of pain medication to control her pain, she did have a slight elevation of AST and ALT, she had slight elevation of lipase, because of the presentation there is a concern about possible a passed stone and common bile duct stone, and possibility of acute pancreatitis due to the recent change in her medications was about, patient was admitted to the hospital she was started on IV fluid resuscitation she was initially on n.p.o. at and then we will advance her diet as tolerated from clear liquid diet she will be seen in consultation by GI for further evaluation recommendation patient will likely need to go for an MRCP with and without jaylin for further evaluation and recommendations. 12/18: Patient was seen by gastroenterology, underwent MRCP with and without jaylin, that showed no evidence of any stone or any mass at the common bile duct it did show evidence of slight dilatation of the common bile duct and hepatic duct the common hepatic duct of 5 mm and the common bile duct at 8 mm, patient did eat yesterday she had some abdominal pain after that, at this stage I believe patient should stay off GLP-1 receptor agonist at this time her lipase is slightly elevated, her liver enzymes are better, bilirubin is normal, alkaline phosphatase is normal, will continue to monitor the patient very closely for another 24 hours, repeat her labs tomorrow morning, and will advance her diet as tolerated if she is tolerating her diet very well she can be discharged home and follow-up with GI as an outpatient. 12/19: Patient is lying down in bed in no apparent distress, patient underwent upper endoscopy with Dr. Jane today that showed minimal gastritis and a small polyp, she was started on Protonix 40 mg once every day, I spoke with the patient about stopping her Zepbound and the she will do that she will follow-up with her primary care physician as an outpatient in 1 week, patient will be discharged home in a stable condition. Discharge diagnoses: 1. Right upper quadrant abdominal pain with mildly dilated common bile duct at 0.8 cm. Possibilities could be passed common bile duct stone since the patient has a residual elevation of her AST and ALT and slight elevation of the lipase, 2. Transaminitis of unclear etiology . 3. Anxiety and depressive disorder. 4. Attention deficit disorder. 5. History of SVT status postcardiac ablation 2009. 6. Mixed hyperlipidemia. Patient Condition at Discharge: Stable Plan - Discharge Summary New Discharge Prescriptions: No Action clonazePAM [KlonoPIN] 1 mg PO HS PRN PRN Reason: Anxiety QUEtiapine [SEROquel] 50 mg PO HS Lisdexamfetamine Dimesylate [Vyvanse] 50 mg PO DAILY Atorvastatin [Lipitor] 20 mg PO DAILY Brexpiprazole [Rexulti] 2 mg PO DAILY Tirzepatide [Zepbound] 2.5 mg SQ WE Discharge Medication List clonazePAM [KlonoPIN] 1 mg PO HS PRN 01/22/19 [History] QUEtiapine [SEROquel] 50 mg PO HS 08/16/23 [History] Atorvastatin [Lipitor] 20 mg PO DAILY 12/18/23 [History] Brexpiprazole [Rexulti] 2 mg PO DAILY 12/18/23 [History] Lisdexamfetamine Dimesylate [Vyvanse] 50 mg PO DAILY 12/18/23 [History] Tirzepatide [Zepbound] 2.5 mg SQ WE 12/18/23 [History] Follow up Appointment(s)/Referral(s): Janine Bird DO [Primary Care Provider] - 1-2 days
== END 2023-12-20 16:50 | disposition home or self-care (01) ==
LOC: EC 01:21 → 6NMEDSUR 09:42
PROVIDERS: ADMIT Internal Medicine; ATTEND Internal Medicine
DX: K31.7 Polyp of stomach and duodenum (principal); K29.50 Unspecified chronic gastritis without bleeding; R74.01 Elevation of levels of liver transaminase levels; K83.8 Other specified diseases of biliary tract; F32.A Depression, unspecified; F41.9 Anxiety disorder, unspecified; E78.2 Mixed hyperlipidemia; F98.8 Other specified behavioral and emotional disorders with onset usually occurring in childhood and adolescence; Z79.899 Other long term (current) drug therapy
CPT/HCPCS: 96376 ×3; 96361; 96365; 96375; 99285; 36415; 88305; 80053 ×2; 80074; 82150; 83690; 85025 ×2; 81001; 76705; 74177; 74181; 43239; G0378 ×3; J2405; J2001; J1170 ×3; J0295; J1885 ×3; J2704; Q9967

== ENCOUNTER → 2024-03-21 | Outpatient (CLI) | payer OTHER ==
--- NOTE | 2024-03-21 11:04 | XR ---
EXAMINATION TYPE: XR shoulder complete 3 views LT, XR elbow complete 3 views LT DATE OF EXAM: 03/21/2024 Comparison: None Clinical History: 53-year-old female S46.912A M25.522 R20.9 Findings: Left shoulder: AC joint is congruent and intact. Subacromial space is preserved. Smooth delineation to the greater t uberosity. No acute fracture, subluxation, dislocation. Visualized left hemithorax is clear. Left elbow: No elbow joint effusion. No acute fracture, subluxation, dislocation. Impression (left shoulder and left elbow): No acute osseous abnormality seen.
== END | disposition home or self-care (01) ==
LOC: RADXRMAIN 10:25
PROVIDERS: ATTEND Emergency Medicine
DX: S46.912A Strain of unspecified muscle, fascia and tendon at shoulder and upper arm level, left arm, initial encounter (principal); R20.9 Unspecified disturbances of skin sensation

== ENCOUNTER 2024-11-13 02:02 | Emergency (ER) | payer BC, OTHER ==
--- NOTE | 2024-11-13 02:47 | ED ---
General Adult HPI - General Chief complaint: Urogenital Stated complaint: Kidney stones Time Seen by Provider: 11/13/24 02:38 Source: patient, RN notes reviewed Mode of arrival: ambulatory Limitations: no limitations - History of Present Illness Initial comments: 53-year-old female presents to the emergency department with right flank pain that radiates to the right groin. Patient states that pain originally started in her right flank however this evening woke her from sleep with radiation into her groin. She denies associated fevers, chills, gross hematuria. Admits to mild pressure with urination and nausea with no reported emesis. She does have a history of recurrent microscopic hematuria and kidney stones. Denies previous urological procedures. Patient states that she has been taking methylene blue and this is caused her urine to be greenish in color. She has been taking Toradol with minimal relief. - Related Data Home Medications Medication Instructions Recorded Confirmed clonazePAM [KlonoPIN] 1 mg PO HS PRN 01/22/19 12/18/23 QUEtiapine [SEROquel] 50 mg PO HS 08/16/23 12/18/23 Atorvastatin [Lipitor] 20 mg PO DAILY 12/18/23 12/18/23 Brexpiprazole [Rexulti] 2 mg PO DAILY 12/18/23 12/18/23 Lisdexamfetamine Dimesylate 50 mg PO DAILY 12/18/23 12/18/23 [Vyvanse] Tirzepatide [Zepbound] 2.5 mg SQ WE 12/18/23 12/18/23 Previous Rx's Medication Instructions Recorded Pantoprazole Sodium [Protonix] 40 mg PO DAILY #30 tab 12/20/23 Sennosides-Docusate Sodium 2 each PO DAILY tab 12/20/23 [Senokot-S] Allergies Allergy/AdvReac Type Severity Reaction Status Date / Time No Known Allergies Allergy Verified 12/18/23 10:28 Review of Systems ROS Statement: Those systems with pertinent positive or pertinent negative responses have been documented in the HPI. ROS Other: All systems not noted in ROS Statement are negative. Past Medical History Past Medical History: GI Bleed Additional Past Medical History / Comment(s): SVT, abdominal pain infection? ruling out colitis History of Any Multi-Drug Resistant Organisms: MRSA Date of last positivie culture/infection: 04/05/19 MDRO Source:: Left Axilla Past Surgical History: Bladder Surgery, Breast Surgery, Cardiac Ablation, Or thopedic Surgery Additional Past Surgical History / Comment(s): bladder sling, breast augmentation, cardiac ablation [address] Noble., colonoscopy , mini abdominalplasty, britney carpal tunnel Past Anesthesia/Blood Transfusion Reactions: No Reported Reaction Past Psychological History: Anxiety, Depression Smoking Status: Never smoker Past Alcohol Use History: None Reported Past Drug Use History: None Reported - Past Family History Mother Additional Family Medical History / Comment(s): Mother at age 57 from lung cancer with history of 2 MIs. Father Additional Family Medical History / Comment(s): Father alive at age 66 with history of COPD and HTN. Patient is an only child. 2 children with no major medical problems. General Exam Limitations: no limitations General appearance: alert, in no apparent distress Neck exam: Present: normal inspection. Absent: tenderness, meningismus, lymphadenopathy Respiratory exam: Present: normal lung sounds bilaterally. Absent: respiratory distress, wheezes, rales, rhonchi, stridor Cardiovascular Exam: Present: regular rate, normal rhythm, normal heart sounds. Absent: systolic murmur, diastolic murmur, rubs, gallop, clicks GI/Abdominal exam: Present: soft, tenderness (right lower abdomen), normal bowel sounds. Absent: distended, guarding, rebound, rigid Extremities exam: Present: normal inspection, full ROM, normal capillary refill. Absent: tenderness, pedal edema, joint swelling, calf tenderness Back exam: Present: normal inspection, tenderness, CVA tenderness (R) Course Vital Signs 11/13/24 11/13/24 02:03 05:02 Temperature 97.9 F 98 F Pulse Rate 86 81 Respiratory 16 17 Rate Blood Pressure 138/82 131/92 O2 Sat by Pulse 98 97 Oximetry Medical Decision Making - Medical Decision Making Was pt. sent in by a medical professional or institution (, PA, GRAD INTERN, urgent care, hospital, or long-term...) When possible be specific @ -No Did you speak to anyone other than the patient for history (EMS, parent, family, police, friend...)? What history was obtained from this source @ -No Did you review nursing and triage notes (agree or disagree)? Why? @ -I reviewed and agree with nursing and triage notes Were old charts reviewed (outside hosp., previous admission, EMS record, old EKG, old radiological studies, urgent care reports/EKG's, long-term records)? Report findings @ -No old charts were reviewed Differential Diagnosis (chest pain, altered mental status, abdominal pain women, abdominal pain men, vaginal bleeding, weakness, fever, dyspnea, syncope, headache, dizziness, GI bleed, back pain, seizure, CVA, palpatations, mental health, musculoskeletal)? @ -Differential Abdominal Pain Women: Appendicitis, Cholecystitis, diverticulosis, ischemic bowel, pancreatitis, hepatitis, UTI, gastroenteritis, AAA, incarcerated hernia, bowel obstruction, constipation, inflammatory bowel, hepatitis, peptic ulcer disease, splenic infarction, perforated viscus, vulvitis, ovarian torsion, PID, kidney stone, placenta abruption, this is not meant to be an all-inclusive list EKG interpreted by me (3pts min.). @ -None X-rays interpreted by me (1pt min.). @ -None done CT interpreted by me (1pt min.). @ -CT of the abdomen pelvis without contrast no acute abdominal or pelvic findings. U/S interpreted by me (1pt. min.). @ -None done What testing was considered but not performed or refused? (CT, X-rays, U/S, labs)? Why? @ -None What meds were considered but not given or refused? Why? @ -None Did you discuss the management of the patient with other professionals (professionals i.e. , PA, GRAD INTERN, lab, RT, psych nurse, social media project manager, engine tester, teacher, ship's electronic warfare officer, geriatric case manager)? Give summary @ -No Was smoking cessation discussed for >3mins.? @ -No Was critical care preformed (if so, how long)? @ -No Were there social determinants of health that impacted care today? How? (Homelessness, low income, unemployed, alcoholism, drug addiction, transportation, low edu. Level, literacy, decrease access to med. care, snf, rehab)? @ -No Was there de-escalation of care discussed even if they declined (Discuss DNR or withdrawal of care, Hospice)? DNR status @ -No What co-morbidities impacted this encounter? (DM, HTN, Smoking, COPD, CAD, Cancer, CVA, ARF, Chemo, Hep., AIDS, mental health diagnosis, sleep apnea, morbid obesity)? @ -None Was patient admitted / discharged? Hospital course, mention meds given and route, prescriptions, significant lab abnormalities, going to OR and other pertinent info. @ -53-year-old female presenting with right flank pain. Patient noted to have CVA tenderness on palpation. Vitals are stable on arrival. She is provided with IV fluids and pain medication pending laboratory results and CT imaging. Laboratory testing including CBC and CMP unremarkable. Urinalysis notable for large blood, epithelial cells and large leukocyte esterase. On reevaluation, patient states that she is feeling better after medication administration. CT of the abdomen pelvis unremarkable. Planed that patient's pain likely secondary to recent passage of kidney stone. She is provided with starter pack and Tylenol 3 instructed to follow-up outpatient with urology for further evaluation. Case discussed with Dr. León Undiagnosed new problem with uncertain prognosis? @ -No Drug Therapy requiring intensive monitoring for toxicity (Heparin, Nitro, Insulin, Cardizem)? @ -No Were any procedures done? @ -No Diagnosis/symptom? @ -Flank pain Acute, or Chronic, or Acute on Chronic? @ -Acute Uncomplicated (without systemic symptoms) or Complicated (systemic symptoms)? @ -Uncomplicated Side effects of treatment? @ -No Exacerbation, Progression, or Severe Exacerbation? @ -No Poses a threat to life or bodily function? How? (Chest pain, [place], [place], pneumonia, PE, COPD, DKA, ARF, appy, cholecystitis, CVA, Diverticulitis, Homicidal, Suicidal, threat to staff... and all critical care pts) @ -No - Lab Data Result diagrams: 11/13/24 03:04 11/13/24 03:04 Lab Results 11/13/24 11/13/24 11/13/24 Range/Units 03:04 03:04 03:04 WBC 10.9 H (3.8-10.6) k/uL RBC 4.51 (3.80-5.40) m/uL Hgb 13.6 (11.4-16.0) gm/dL Hct 41.6 (34.0-46.0) % MCV 92.2 (80.0-100.0) fL MCH 30.1 (25.0-35.0) pg MCHC 32.7 (31.0-37.0) g/dL RDW 13.3 (11.5-15.5) % Plt Count 409 (150-450) k/uL MPV 7.6 Neutrophils % 59 % Lymphocytes % 28 % Monocytes % 8 % Eosinophils % 3 % Basophils % 0 % Neutrophils # 6.4 (1.3-7.7) k/uL Lymphocytes # 3.0 (1.0-4.8) k/uL Monocytes # 0.9 (0-1.0) k/uL Eosinophils # 0.3 (0-0.7) k/uL Basophils # 0.1 (0-0.2) k/uL Sodium 140 (137-145) mmol/L Potassium 4.0 (3.5-5.1) mmol/L Chloride 102 (98-107) mmol/L Carbon Dioxide 30 (22-30) mmol/L Anion Gap 8 mmol/L BUN 16 (7-17) mg/dL Creatinine 0.80 (0.52-1.04) mg/dL Est GFR (CKD-EPI)AfAm >90 (>60 ml/min/1.73 sqM) Est GFR (CKD-EPI)NonAf 86 (>60 ml/min/1.73 sqM) Glucose 87 (74-99) mg/dL Calcium 9.5 (8.4-10.2) mg/dL Total Bilirubin 0.9 (0.2-1.3) mg/dL AST 36 (14-36) U/L ALT 63 H (4-34) U/L Alkaline Phosphatase 68 (38-126) U/L Total Protein 7.8 (6.3-8.2) g/dL Albumin 4.7 (3.5-5.0) g/dL Urine Color Light Green Urine Appearance Cloudy H (Clear) Urine pH 6.0 (5.0-8.0) Ur Specific [place] 1.019 (1.001-1.035) Urine Protein Negative (Negative) Urine Glucose (UA) Negative (Negative) Urine Ketones Negative (Negative) Urine Blood Large H (Negative) Urine Nitrite Negative (Negative) Urine Bilirubin Negative (Negative) Urine Urobilinogen <2.0 (<2.0) mg/dL Ur Leukocyte Esterase Large H (Negative) Urine RBC 57 H (0-5) /hpf Urine WBC 33 H (0-5) /hpf Ur Squamous Epith Cells 5 H (0-4) /hpf Urine Bacteria Rare H (None) /hpf Urine Mucus Rare H (None) /hpf Disposition Clinical Impression: Flank pain Disposition: HOME SELF-CARE Condition: Good Instructions (If sedation given, give patient instructions): Flank Pain (ED) Additional Instructions: return to the emergency department for any new or worsening symptoms. Is patient prescribed a controlled substance at d/c from ED?: No Referrals: Tiny Lala DO [Primary Care Provider] - 1-2 days Time of Disposition: 04:51
[2024-11-13] MEDS: SODIUM CHLORIDE 0.9% 1,000 ML IV STA (03:03)
[2024-11-13] MEDS: HYDROmorphone 1 MG/ML 1 ML SYRINGE IVP STA (03:03)
[2024-11-13 03:26] LABS: Basophils # (A) 0.1 k/uL (0-0.2); Basophils % (A) 0 %; Eosinophils # (A) 0.3 k/uL (0-0.7); Eosinophils % (A) 3 %; HCT 41.6 % (34.0-46.0); HGB 13.6 gm/dL (11.4-16.0); Lymphocytes % (A) 28 %; MCH 30.1 pg (25.0-35.0); MCHC 32.7 g/dL (31.0-37.0); MCV 92.2 fL (80.0-100.0); Mean Platelet Volume 7.6; Monocytes # (A) 0.9 k/uL (0-1.0); Monocytes % (A) 8 %; Neutrophils # (A) 6.4 k/uL (1.3-7.7); Neutrophils % (A) 59 %; Platelet Count 409 k/uL (150-450); RBC 4.51 m/uL (3.80-5.40); RDW 13.3 % (11.5-15.5); WBC 10.9 k/uL (3.8-10.6)
[2024-11-13 03:29] LABS: Appearance,Urine Cloudy (Clear); Color,Urine Light Green; Protein,Urine Negative (Negative); Specific Gravity,Urine 1.019 (1.001-1.035)
[2024-11-13 03:30] LABS: Bacteria,Urine Rare /hpf; Bilirubin,Urine Negative (Negative); Blood,Urine Large (Negative); Glucose,Urine (UA) Negative (Negative); Ketones,Urine Negative (Negative); Leukocyte Esterase,Urine Large (Negative); Mucus,Urine Rare /hpf; Nitrite,Urine Negative (Negative); RBC,Urine 57 /hpf (0-5); Squamous Epithelial Cell,Urine 5 /hpf (0-4); Urobilinogen,Urine <2.0 mg/dL (<2.0); WBC,Urine 33 /hpf (0-5)
[2024-11-13 03:55] LABS: ALT 63 U/L (4-34); AST 36 U/L (14-36); African American GFR (CKD) >90 (>60 ml/min/1.73 sqM); Albumin 4.7 g/dL (3.5-5.0); Alkaline Phosphatase 68 U/L (38-126); Anion Gap 8 mmol/L; Blood Urea Nitrogen 16 mg/dL (7-17); Calcium 9.5 mg/dL (8.4-10.2); Carbon Dioxide 30 mmol/L (22-30); Chloride 102 mmol/L (98-107); Glucose 87 mg/dL (74-99); Non-African American GFR(CKD) 86 (>60 ml/min/1.73 sqM); Sodium 140 mmol/L (137-145); Total Bilirubin 0.9 mg/dL (0.2-1.3); Total Protein 7.8 g/dL (6.3-8.2)
--- NOTE | 2024-11-13 04:46 | CT ---
EXAM: CT Abdomen and Pelvis Without Intravenous Contrast CLINICAL HISTORY: ITS.REASON CT Reason: R flank pain, hx stones TECHNIQUE: Axial computed tomography images of the abdomen and pelvis without intravenous contrast. CTDI is 6.8 mGy and DLP is 371.7 mGy-cm. This CT exam was performed using one or more of the following dose reduction techniques: automated exposure control, adjustment of the mA and/or kV according to patient size, and/or use of iterative reconstruction technique. Coronal and sagittal reformatted images were created and reviewed. 438 images COMPARISON: 08/10/2023 FINDINGS: Lung bases: 5 mm millimeters calcification in left lower lobe. ABDOMEN: Liver: Unremarkable. Gallbladder and bile ducts: Unremarkable. No calcified stones. No ductal dilation. Pancreas: Unremarkable. No ductal dilation. Spleen: Unremarkable. No splenomegaly. Adrenals: Unremarkable. No mass. Kidneys and ureters: Unremarkable. No obstructing stones. No hydronephrosis. Stomach and bowel: Unremarkable. No obstruction. No mucosal thickening. PELVIS: Appendix: Normal appendix. Bladder: Unremarkable. No stones. Reproductive: Unremarkable as visualized. ABDOMEN and PELVIS: Intraperitoneal space: Unremarkable. No free air. No significant fluid collection. Bones/joints: No acute findings. Soft tissues: Bilateral breast implants. Vasculature: Unremarkable. No abdominal aortic aneurysm. Lymph nodes: Unremarkable. No enlarged lymph nodes. IMPRESSION: No acute findings in the abdomen or pelvis.
[2024-11-13] MEDS: ACET/COD 300 MG/30 MG STARTER PACK 6 TAB BTL PO STA (04:59)
[2024-11-13 05:03] VITALS: BP 131/92; PULSE 81; RESP 17; TEMP 98
== END 2024-11-13 05:06 | disposition home or self-care (01) ==
LOC: EC 02:02
DX: R10.31 Right lower quadrant pain (principal)
CPT/HCPCS: 36415; 80053; 85025; 81001; 74176; 99284; 96374; 96361 ×2; J1171

== ENCOUNTER 2024-11-26 23:45 | Observation (INO) | payer BC ==
[2024-11-26 23:56] VITALS: TEMP 98
--- NOTE | 2024-11-27 00:12 | ED ---
Chest Pain HPI - General Chief Complaint: Chest Pain Stated Complaint: Chest pain, Shortness of Breath Time Seen by Provider: 11/27/24 00:00 Source: patient Mode of arrival: ambulatory Limitations: no limitations - History of Present Illness Initial Comments: This patient is a 54-year-old woman who presents to have evaluation of left- sided chest pain that she states woke her from sleep tonight. The patient had been feeling okay before going to bed. She states that she woke with chest pain, it radiates to the left shoulder, it is 8 out of 10 severity. She did not note worsening or relieving factors. MD Complaint: chest pain Onset/Timin -: hour(s) Onset: awoke with symptoms Pain Location: left chest Pain Radiation: LUE Severity scale (1-10): 8 Quality: heaviness Consistency: constant Improves With: nothing Worsens With: nothing Treatments Prior to Arrival: none - Related Data Home Medications Medication Instructions Recorded Confirmed clonazePAM [KlonoPIN] 1 mg PO HS PRN 01/22/19 12/18/23 QUEtiapine [SEROquel] 50 mg PO HS 08/16/23 12/18/23 Atorvastatin [Lipitor] 20 mg PO DAILY 12/18/23 12/18/23 Brexpiprazole [Rexulti] 2 mg PO DAILY 12/18/23 12/18/23 Lisdexamfetamine Dimesylate 50 mg PO DAILY 12/18/23 12/18/23 [Vyvanse] Tirzepatide [Zepbound] 2.5 mg SQ WE 12/18/23 12/18/23 Previous Rx's Medication Instructions Recorded Pantoprazole Sodium [Protonix] 40 mg PO DAILY #30 tab 12/20/23 Sennosides-Docusate Sodium 2 each PO DAILY tab 12/20/23 [Senokot-S] Allergies Allergy/AdvReac Type Severity Reaction Status Date / Time No Known Allergies Allergy Verified 12/18/23 10:28 Review of Systems ROS Statement: Those systems with pertinent positive or pertinent negative responses have been documented in the HPI. ROS Other: All systems not noted in ROS Statement are negative. Constitutional: Denies: fever, chills, weakness ENT: Denies: throat pain Respiratory: Reports: dyspnea. Denies: cough, hemoptysis Cardiovascular: Reports: chest pain. Denies: palpitations, orthopnea, edema, syncope Gastrointestinal: Denies: abdominal pain, nausea, vomiting, diarrhea Genitourinary: Denies: dysuria, hematuria Musculoskeletal: Denies: back pain Skin: Denies: rash Neurological: Denies: headache, weakness EKG Findings - EKG Results: EKG: interpreted by ERMD, sinus rhythm (Rate 77 bpm), normal axis, normal QRS - Blocks, Landers, Hypertrophy, ST Abn: Repolarization changes or abnormalities: ST or T wave suggestive of ischemia (Anterior T inversions.) Past Medical History Past Medical History: GI Bleed Additional Past Medical History / Comment(s): SVT, abdominal pain infection? ruling out colitis History of Any Multi-Drug Resistant Organisms: MRSA Date of last positivie culture/infection: 04/05/19 MDRO Source:: Left Axilla Past Surgical History: Bladder Surgery, Breast Surgery, Cardiac Ablation, Orthopedic Surgery Additional Past Surgical History / Comment(s): bladder sling, breast augmentation, cardiac ablation [address] Noble., colonoscopy , mini abdominalplasty, britney carpal tunnel Past Anesthesia/Blood Transfusion Reactions: No Reported Reaction Past Psychological History: Anxiety, Depression Smoking Status: Never smoker Past Alcohol Use History: None Reported Past Drug Use History: None Reported - Past Family History Mother Additional Family Medical History / Comment(s): Mother at age 57 from lung cancer with history of 2 MIs. Father Additional Family Medical History / Comment(s): Father alive at age 66 with history of COPD and HTN. Patient is an only child. 2 children with no major medical problems. General Exam Limitations: no limitations General appearance: alert, in no apparent distress Head exam: Present: atraumatic, normocephalic Eye exam: Present: normal appearance. Absent: scleral icterus, conjunctival injection ENT exam: Present: normal oropharynx Neck exam: Present: normal inspection Respiratory exam: Present: normal lung sounds bilaterally. Absent: respiratory distress, wheezes, rales, rhonchi, stridor, accessory muscle use Cardiovascular Exam: Present: regular rate, normal rhythm, normal heart sounds. Absent: systolic murmur, diastolic murmur, rubs, gallop GI/Abdominal exam: Present: soft. Absent: distended, tenderness, guarding, rebound, rigid, mass Extremities exam: Present: normal inspection, normal capillary refill. Absent: pedal edema, calf tenderness Back exam: Present: normal inspection. Absent: CVA tenderness (R), CVA tenderness (L) Neurological exam: Present: alert Skin exam: Present: warm, dry, intact, normal color. Absent: rash Course Vital Signs 11/26/24 23:53 Temperature 98 F Pulse Rate 86 Respiratory 20 Rate Blood Pressure 128/88 O2 Sat by Pulse 98 Oximetry Chest Pain MDM - MDM The patient had chest x-ray that I interpreted as negative for acute infiltrate, pneumothorax, congestive heart failure. Disposition Referrals: Tiny Lala DO [Primary Care Provider] - 1-2 days
[2024-11-27] MEDS: ASPIRIN 81 MG PO STA (00:26)
[2024-11-27] MEDS: NITROGLYCERIN SL TABS 0.4 MG TAB SUBLINGUAL STA (00:27)
[2024-11-27] MEDS: MORPHINE SULFATE 4 MG/ML SYRINGE IV STA ×2 (00:27→03:01)
--- NOTE | 2024-11-27 00:49 | XR ---
EXAM: XR Chest, 2 Views CLINICAL HISTORY: ITS.REASON XR Reason: Chest Pain TECHNIQUE: Frontal and lateral views of the chest. COMPARISON: XR Chest dated 01/22/2019 FINDINGS: Lungs: Unremarkable. No consolidation. Pleural space: Unremarkable. No pneumothorax. Heart: Unremarkable. No cardiomegaly. Mediastinum: Unremarkable. Normal mediastinal contour. Bones/joints: Unremarkable. No acute fracture. IMPRESSION: No evidence of acute cardiopulmonary disease.
[2024-11-27 01:19] LABS: Basophils % (A) 1 %; Eosinophils # (A) 0.3 k/uL (0-0.7); Eosinophils % (A) 5 %; HCT 37.1 % (34.0-46.0); HGB 12.4 gm/dL (11.4-16.0); Lymphocytes # (A) 1.9 k/uL (1.0-4.8); Lymphocytes % (A) 28 %; MCH 30.6 pg (25.0-35.0); MCHC 33.5 g/dL (31.0-37.0); MCV 91.5 fL (80.0-100.0); Mean Platelet Volume 7.3; Monocytes # (A) 0.6 k/uL (0-1.0); Monocytes % (A) 9 %; Neutrophils # (A) 3.7 k/uL (1.3-7.7); Neutrophils % (A) 56 %; Platelet Count 405 k/uL (150-450); RBC 4.06 m/uL (3.80-5.40); RDW 13.2 % (11.5-15.5); WBC 6.6 k/uL (3.8-10.6)
[2024-11-27 01:40] LABS: ALT 96 U/L (4-34); African American GFR (CKD) >90 (>60 ml/min/1.73 sqM); Anion Gap 11 mmol/L; Blood Urea Nitrogen 17 mg/dL (7-17); Calcium 9.5 mg/dL (8.4-10.2); Carbon Dioxide 21 mmol/L (22-30); Chloride 107 mmol/L (98-107); Glucose 80 mg/dL (74-99); INR 0.9 (<1.2); Non-African American GFR(CKD) >90 (>60 ml/min/1.73 sqM); Prothrombin Time 10.1 sec (10.0-12.5); Sodium 139 mmol/L (137-145)
[2024-11-27 01:52] LABS: AST 87 U/L (14-36); Albumin 4.3 g/dL (3.5-5.0); Alkaline Phosphatase 68 U/L (38-126); Total Protein 7.3 g/dL (6.3-8.2)
[2024-11-27 01:58] LABS: Partial Thromboplastin Time 21.1 sec (22.0-30.0)
[2024-11-27] MEDS: LORazepam 2 MG/ML INJ IV STA (03:01)
[2024-11-27] MEDS: ZIPRASIDONE 20 MG VIAL IM STA (03:01)
[2024-11-27] MEDS: QUEtiapine 50 MG TAB PO STA (03:17)
[2024-11-27] MEDS ORDERED: NITROGLYCERIN SL TABS 0.4 MG TAB SUBLINGUAL PRN (04:19)
[2024-11-27] MEDS: PANTOPRAZOLE 40 MG TABLET PO SCH (08:51)
[2024-11-27] MEDS: SENNOSIDES-DOCUSATE SODIUM 1 EACH TAB PO SCH (08:51)
[2024-11-27] MEDS: ASPIRIN 81 MG PO SCH (08:51)
[2024-11-27] MEDS ORDERED: ETODOLAC 300 MG CAPSULE PO PRN (08:57)
[2024-11-27] MEDS ORDERED: ONDANSETRON ODT 4 MG TAB PO PRN (08:57)
[2024-11-27] MEDS ORDERED: ATORVASTATIN 20 MG TAB PO SCH (09:00)
--- NOTE | 2024-11-27 09:58 | P.CRDCN ---
History of Present Illness History of present illness: HISTORY OF PRESENT ILLNESS: This is a 54-year-old female with a past medical history significant for SVT with previous ablation, anxiety, and depression. Patient used to follow in the office with Dr. Noble but has not been seen since November 2021. We have been asked to see the patient in consultation for chest pain. Patient examined at the bedside in the emergency room. Patient states that she was sleeping when she woke up and had pain in the middle of her chest. Patient states she has not had pain like this previously. At the time of examination she denies any chest pain or pressure. She denies a known history of hypertension, diabetes or hyperlipidemia. She does report a history of CAD in her mother. DIAGNOSTICS: - EKG reveals sinus mechanism with no signs of acute ischemia. - Chest xray negative for acute process. - Laboratory data: WBC 6.6. Hemoglobin 4.06. Platelet count 405. Sodium 139. Potassium 5.0. BUN 17. Creatinine 0.68. Troponin negative x 2. - Current home cardiac medications include none REVIEW OF SYSTEMS: At the time of my exam: CONSTITUTIONAL: Denies fever or chills. HEENT: Denies blurred vision, vision changes, or eye pain. Denies hemoptysis CARDIOVASCULAR: Denies chest pain. Denies orthopnea. Denies PND. Denies palpitations RESPIRATORY: Denies shortness of breath. GASTROINTESTINAL: Denies abdominal pain. Denies nausea or vomiting. HEMATOLOGIC: Denies bleeding disorders. GENITOURINARY: Denies any blood in urine. SKIN: Denies pruitis. Denies rash. PHYSICAL EXAM: VITAL SIGNS: Reviewed. GENERAL: Well-developed in no acute distress. HEENT: Head is normocephalic. Pupils are equal, round. Sclerae anicteric. Mucous membranes of the mouth are moist. Neck supple. No JVD or thyromegaly LUNGS: Respirations even and unlabored. Lungs essentially clear to auscultation bilaterally. HEART: Regular rate and rhythm. S1 and S2 heard. ABDOMEN: Soft. Nondistended. Nontender. EXTREMITIES: Normal range of motion. No clubbing or cyanosis. Peripheral pulses intact. No lower extremity edema NEUROLOGIC: Awake and alert. Oriented x 3. ASSESSMENT: Chest pain History of SVT with previous ablation Anxiety Depression PLAN: An acute coronary event has been ruled out Obtain 2D echo to assess cardiac structure and function Patient to undergo stress echocardiogram today If negative, she may be discharged home from a cardiac standpoint Nurse practitioner note has been reviewed by physician. Signing provider agrees with the documented findings, assessment, and plan of care documented by SPORTS PSYCHOLOGIST as a scribe. Past Medical History Past Medical History: GI Bleed Additional Past Medical History / Comment(s): SVT, abdominal pain infection? ruling out colitis History of Any Multi-Drug Resistant Organisms: MRSA Date of last positivie culture/infection: 04/05/19 MDRO Source:: Left Axilla Past Surgical History: Bladder Surgery, Breast Surgery, Cardiac Ablation, Orthopedic Surgery Additional Past Surgical History / Comment(s): bladder sling, breast augmentation, cardiac ablation [address] Noble., colonoscopy , mini abdominalplasty, britney carpal tunnel Past Anesthesia/Blood Transfusion Reactions: No Reported Reaction Past Psychological History: Anxiety, Depression Smoking Status: Never smoker Past Alcohol Use History: None Reported Past Drug Use History: None Reported - Past Family History Mother Additional Family Medical History / Comment(s): Mother at age 57 from lung cancer with history of 2 MIs. Father Additional Family Medical History / Comment(s): Father alive at age 66 with history of COPD and HTN. Patient is an only child. 2 children with no major medical problems. Medications and Allergies Home Medications Medication Instructions Recorded Confirmed Type clonazePAM [KlonoPIN] 1 mg PO BID PRN 01/22/19 11/27/24 History Adrenal Supplement 1 tab PO DAILY 11/27/24 11/27/24 History Aloe Vera (Unknown Dose) 1 cap PO DAILY 11/27/24 11/27/24 History Cariprazine HCl [Vraylar] 1.5 mg PO DAILY 11/27/24 11/27/24 History Clobetasol Propionate [Temovate 1 applic TOPICAL BID PRN 11/27/24 11/27/24 History 0.05% Cream] Dextromethorphan HBr/Bupropion 1 tab PO BID 11/27/24 11/27/24 History [Auvelity ER 45-105 mg Tablet] Ketorolac [Toradol] 10 mg PO TID PRN 11/27/24 11/27/24 History Magnesium (Unknown Dose) 1 tab PO DAILY 11/27/24 11/27/24 History Methylene Blue 1 tab PO DAILY 11/27/24 11/27/24 History Mobility Supplement 1 tab PO DAILY 11/27/24 11/27/24 History Ondansetron Odt [Zofran Odt] 4 mg PO Q6H PRN 11/27/24 11/27/24 History Propranolol [Inderal] 40 mg PO HS 11/27/24 11/27/24 History QUEtiapine [SEROquel] 50 mg PO HS 11/27/24 11/27/24 History Semaglutide [Wegovy] 2.4 mg SQ DIRECTED 11/27/24 11/27/24 History oxyBUTYnin chloride [Ditropan] 5 mg PO BID 11/27/24 11/27/24 History Allergies Allergy/AdvReac Type Severity Reaction Status Date / Time No Known Allergies Allergy Verified 12/18/23 10:28 Physical Exam Vitals: Vital Signs Temp Pulse Resp BP Pulse Ox 11/27/24 07:42 72 18 98/78 94 L 11/27/24 03:02 78 16 102/58 98 11/27/24 01:00 84 16 117/78 99 11/26/24 23:53 98 F 86 20 128/88 98 Intake and Output 11/26/24 11/27/24 11/27/24 22:59 06:59 14:59 Other: Weight 62.596 kg Results 11/27/24 00:12 11/27/24 00:12 Cardiac Enzymes 11/27/24 11/27/24 11/27/24 Range/Units 00:12 00:12 06:26 AST 87 H (14-36) U/L Troponin I <0.012 <0.012 (0.000-0.034) ng/mL Coagulation 11/27/24 Range/Units 00:12 PT 10.1 (10.0-12.5) sec APTT 21.1 L (22.0-30.0) sec CBC 11/27/24 Range/Units 00:12 WBC 6.6 (3.8-10.6) k/uL RBC 4.06 (3.80-5.40) m/uL Hgb 12.4 (11.4-16.0) gm/dL Hct 37.1 (34.0-46.0) % Plt Count 405 (150-450) k/uL Comprehensive Metabolic Panel 11/27/24 Range/Units 00:12 Sodium 139 (137-145) mmol/L Potassium 5.0 (3.5-5.1) mmol/L Chloride 107 (98-107) mmol/L Carbon Dioxide 21 L (22-30) mmol/L BUN 17 (7-17) mg/dL Creatinine 0.68 (0.52-1.04) mg/dL Glucose 80 (74-99) mg/dL Calcium 9.5 (8.4-10.2) mg/dL AST 87 H (14-36) U/L ALT 96 H (4-34) U/L Alkaline Phosphatase 68 (38-126) U/L Total Protein 7.3 (6.3-8.2) g/dL Albumin 4.3 (3.5-5.0) g/dL Current Medications Generic Name Dose Route Start Last Admin Trade Name Freq PRN Reason Stop Dose Admin Aspirin 81 mg 11/27/24 09:00 Aspirin 81 Mg PO DAILY TED Nitroglycerin 0.4 mg 11/27/24 04:19 Nitroglycerin Sl Tabs 0.4 Mg Tab SUBLINGUAL Q5M PRN Chest Pain Pantoprazole Sodium 40 mg 11/27/24 08:00 Pantoprazole 40 Mg Tablet PO DAILY@0730 TED Quetiapine Fumarate 50 mg 11/27/24 21:00 Quetiapine 50 Mg Tab PO HS TED Senna/Docusate Sodium 2 each 11/27/24 09:00 Sennosides-Docusate Sodium 1 Each Tab PO DAILY TED Intake and Output 11/26/24 11/27/24 11/27/24 22:59 06:59 14:59 Other: Weight 62.596 kg 11/27/24 00:12 11/27/24 00:12
[2024-11-27 10:23] VITALS: BP 132/93; PULSE 76; RESP 16
[2024-11-27] MEDS: oxyBUTYnin chloride 5 MG TAB PO SCH (10:24)
--- NOTE | 2024-11-27 10:27 | CA ---
Transthoracic Echo Report Name: Ignacia Sue Age: 54 Gender: F : 1970 Exam Date: 11/27/2024 09:45 Exam Location: [facility] Ht (in): 61 Wt (lb): 138 Ordering Physician: Nanyc Garcia Attending/Referring Phys: [id number], Radha Java Sybase Developer Libia Valdes RDCS Procedure CPT: Indications: LV function, CP Cardiac Hx: Technical Quality: Contrast 1: Total Dose (mL): Contrast 2: Total Dose (mL): MEASUREMENTS (Male / Female) Normal Values 2D ECHO LV Diastolic Diameter PLAX 4.1 cm 4.2 - 5.9 / 3.9 - 5.3 cm LV Systolic Diameter PLAX 2.7 cm IVS Diastolic Thickness 1.0 cm 0.6 - 1.0 / 0.6 - 0.9 cm LVPW Diastolic Thickness 1.0 cm 0.6 - 1.0 / 0.6 - 0.9 cm LV Relative Wall Thickness 0.5 LVOT Diameter 2.0 cm LV Diastolic Volume MOD BP 62.7 cm??? 67 - 155 / 56 - 104 cm??? LV Systolic Volume MOD BP 23.3 cm??? 22 - 58 / 19 - 49 cm??? LV Ejection Fraction MOD BP 62.8 % >= 55 % LV Cardiac Index MOD BP 1949.8 cm???/min???m??? LV Diastolic Volume MOD 4C 59.0 cm??? LV Systolic Volume MOD 4C 22.7 cm??? LV Ejection Fraction MOD 4C 61.6 % LV Cardiac Index MOD 4C 1796.0 cm???/min???m??? LV Diastolic Length 4C 7.6 cm LV Systolic Length 4C 6.5 cm LV Diastolic Volume MOD 2C 63.4 cm??? LV Systolic Volume MOD 2C 21.7 cm??? LV Ejection Fraction MOD 2C 65.8 % LV Cardiac Index MOD 2C 2064.5 cm???/min???m??? LV Diastolic Length 2C 7.1 cm LV Systolic Length 2C 5.9 cm LA Volume 32.4 cm??? 18 - 58 / 22 - 52 cm??? LA Volume Index 19.6 cm???/m??? 16 - 28 cm???/m??? DOPPLER AV Peak Velocity 145.1 cm/s AV Peak Gradient 8.4 mmHg AV Mean Velocity 105.3 cm/s AV Mean Gradient 4.8 mmHg AV Velocity Time Integral 28.7 cm LVOT Peak Velocity 85.5 cm/s LVOT Peak Gradient 2.9 mmHg LVOT Velocity Time Integral 16.2 cm LVOT Stroke Volume 53.1 cm??? LVOT Stroke Volume Index 32.9 ml/m??? LVOT Cardiac Index 2627.5 cm???/min???m??? AV Area Cont Eq vti 1.9 cm??? AV Area Cont Eq pk 1.9 cm??? MV Area PHT 5.3 cm??? Mitral E Point Velocity 64.7 cm/s Mitral A Point Velocity 56.4 cm/s Mitral E to A Ratio 1.1 MV Deceleration Time 144.2 ms TR Peak Velocity 214.4 cm/s TR Peak Gradient 18.4 mmHg Right Atrial Pressure 5.0 mmHg Pulmonary Artery Systolic Pressu 23.4 mmHg Right Ventricular Systolic Press 23.4 mmHg PV Peak Velocity 69.6 cm/s PV Peak Gradient 1.9 mmHg FINDINGS Left Ventricle Left ventricular ejection fraction is estimated at 60 %. Mildly increased posterior wall thickness. Left ventricular cavity size normal. No obvious regional wall motion abnormalities. Right Ventricle Normal right ventricular size and function. Right ventricular systolic pressure within normal limits. Right Atrium Normal right atrial size. Left Atrium Normal left atrial size. Mitral Valve Structurally normal mitral valve. No evidence for mitral valve prolapse. No mitral stenosis. Trace mitral regurgitation. Aortic Valve Trileaflet aortic valve. No aortic valve stenosis or regurgitation. Tricuspid Valve Structurally normal tricuspid valve. No tricuspid stenosis. Mild tricuspid regurgitation. Pulmonic Valve Structurally normal pulmonic valve. No pulmonic stenosis. No pulmonic regurgitation. Pericardium No pericardial effusion. Aorta Normal size aortic root and proximal ascending aorta. CONCLUSIONS Normal LV function Previewed by: Dr. Jayson Lopes MD (Electronically Signed) Final Date: 27 November 2024 10:26
--- NOTE | 2024-11-27 10:31 | CA ---
Stress Echo Report Ignacia Sue Age: 54 Gender: F : 1970 Exam Date: 11/27/2024 09:26 Exam Location: [facility] Ht (in): 61 Wt (lb): 138 Ordering Physician: Nancy Garcia Referring Physician: [id number] Bauman Edging Catcher: ENMANUEL Technologist Procedure CPT: Indication: CP ICD-9 Codes: Rhythm: Patient History: Cardiac Medications: QXIBUTIN, ERAYLAR, METHALINIBLE, SEROQUEL, Medications in past 24 hours: Contrast: N/A Stress Results Protocol: Gustavo Total dose(mL): NA Exercise Duration (min:sec): 9:[address] Depression (mm): Angina Score: Marti Score: METS: 11.5 Resting HR: 77 Resting BP: 108 / 83 Peak HR: 133 Peak BP: 121 / 62 Max Predicted HR: 168 79 % Max Predicted HR Target HR: 143 Double Product: [id number] Stress Summary: BP Response: Reason for Termination: Maximal effort/unable to continue Cardiac Symptoms: CHEST TIGHTNESS ECG Analysis Resting ECG: Normal sinus rhythm normal axis normal intervals Stress ECG: Patient exercised on Gustavo protocol for 9 minutes and 50 seconds achieving 85% of predicted maximal heart rate without chest pain or diagnostic ST segment depression Arrhythmia: Echo Analysis Resting Echo: Normal left ventricular size wall motion and systolic function Peak Echo Analysis: Normal hyperdynamic response MEASUREMENTS (Male/Female) Normal Values CONCLUSIONS Good exercise tolerance Negative stress test by EKG criteria Negative stress echo Dr. Jayson Lopes MD (Electronically Signed) Final Date: 27 November 2024 10:30
--- NOTE | 2024-11-27 15:36 | P.HPIM ---
History of Present Illness H&P Date: 11/27/24 Patient is a 54-year-old female with a history of anxiety and depression presented to the ER yesterday with complaint of left-sided chest pain which woke her up in the middle of the night yesterday. Patient reports that he felt left- sided pain which she describes as stabbing type, 8/10, radiating to the left side with no associated symptoms such as nausea, vomiting, diaphoresis. Patient reports that she has a history of SVTs. She also reports that her mom has CAD but unsure if she had a PCI. Patient reports that she is on progesterone therapy for postmenopausal symptoms which she started recently. Otherwise she denies smoking cigarettes or drink alcohol or use illicit drugs such as cocaine or marijuana. At the time of interview, patient has come back from stress echocardiogram and her chest pain is 5/10 for generalized chest. Patient denies any recent upper respiratory tract infection, trauma to the chest, no recent hospitalization or took a long haul flight. Patient reports no previous episodes of chest pain. Initial laboratory evaluation in the ER shows WBC 6.6, hemoglobin 12.4, platelet count 405, sodium 139, potassium 5.0, chloride 107, bicarb 21, BUN 30, creatinine 0.68, AST 87, ALT 96, ALP 68, troponin less than 0.012, repeat value less than 0.012, TSH 6.30 Vital signs arrival show temperature 98.0 F, pulse rate 86, blood pressure 128/88, respiratory rate 20, oxygen saturation 98% on room air EKG shows T wave inversions in V1, V2, V3. Otherwise normal sinus rhythm at a rate of 77 bpm, UT interval 138 ms, QRS duration 80, QTc 396 ms. Normal R wave progression noted. Chest x-ray shows no acute cardiopulmonary process. Echocardiogram shows normal LV function with LVEF of 60%. Stress echocardiogram shows no signs of acute ischemia. Review of systems: Pertinent positives and negatives as discussed in HPI, a complete review of systems was performed and all other systems are negative. Social history: As in HPI Family History: As in HPI Physical examination: Vital signs reviewed General: non toxic, no distress, appears at stated age, overweight Derm: no unusual rashes/lesions, warm Head: atraumatic, normocephalic, symmetric Eyes: EOMI, no lid lag, anicteric sclera, pupils equal round reactive to light ENT: Nose and ears atraumatic Neck: No cervical lymphadenopathy, trachea midline, supple Mouth: no lip lesion, mucus membranes moist Cardiovascular: S1S2 reg, no murmur, positive dorsalis pedis pulse bilateral, no edema Lungs: CTA bilateral, no rhonchi, no rales, no accessory muscle use Abdominal: soft, nontender to palpation, no guarding Ext: muscle strength 5 out of 5 in all 4 extremities grossly, no gross muscle atrophy, no contractures, Neuro: CN II-XI grossly intact, no gross focal neuro deficits Psych: Alert, oriented, appropriate affect Assessment/Plan: This is a Patient is a 54-year-old female with a history of anxiety and depression presented to the ER yesterday with complaint of left-sided chest pain which woke her up in the middle of the night. . Case was discussed with the Emergency Room provider and decision was made to admit the patient for chest pain, rule out ACS Labs and images: Initial laboratory evaluation in the ER shows WBC 6.6, hemoglobin 12.4, platelet count 405, sodium 139, potassium 5.0, chloride 107, bicarb 21, BUN 30, creatinine 0.68, AST 87, ALT 96, ALP 68, troponin less than 0.012, repeat value less than 0.012, TSH 6.30 Vital signs arrival show temperature 98.0 F, pulse rate 86, blood pressure 128/88, respiratory rate 20, oxygen saturation 98% on room air EKG shows T wave inversions in V1, V2, V3. Otherwise normal sinus rhythm at a rate of 77 bpm, UT interval 138 ms, QRS duration 80, QTc 396 ms. Normal R wave progression noted. Chest x-ray shows no acute cardiopulmonary process. Echocardiogram shows normal LV function with LVEF of 60%. Stress test is negative. Active: #Chest pain, rule out ACS Moderate heart score with a risk of Mace of 12 to 16.6% Patient received aspirin 325 mg in ED Continue with aspirin 81 mg IV morphine as needed for pain Consult cardiology, stress echocardiogram - Exercise echocardiogram shows normal LV function with LVEF of 60% and stress test is negative #Anxiety and depression Resume home medication #Elevated transaminases CT abdomen pelvis on 11/13/2024 was unremarkable Monitor CMP #Elevated TSH Order T4 Chronic: Anxiety and depression Resume home medications DVT prophylaxis: SCDs GI prophylaxis: None F: As needed E: Replete as needed N: Heartily diet A: Ambulatory The patient is admitted with an anticipated less than than 2 midnight stay for evaluation of chest pain, rule out ACS CODE STATUS: Full code Discussed with: Patient Anticipated discharge place: Home Dictation was produced using Keypr dictation software. Please excuse any grammatical, word or spelling errors. Attestation Attestation/ Poke In Note: Attestation to History and physical, Participation I saw and evaluated the patient with the Resident, and I reviewed and discussed the patient with the Resident and agree with the Resident's findings and plans as documented above., management reviewed and discussed, I agree with findings & plan, Provider Signature : ZOE DUFF MD Past Medical History Past Medical History: GI Bleed Additional Past Medical History / Comment(s): SVT, abdominal pain infection? ruling out colitis History of Any Multi-Drug Resistant Organisms: MRSA Date of last positivie culture/infection: 04/05/19 MDRO Source:: Left Axilla Past Surgical History: Bladder Surgery, Breast Surgery, Cardiac Ablation, Orthopedic Surgery Additional Past Surgical History / Comment(s): bladder sling, breast augmentation, cardiac ablation [address] Noble., colonoscopy , mini abdominalplasty, britney carpal tunnel Past Anesthesia/Blood Transfusion Reactions: No Reported Reaction Past Psychological History: Anxiety, Depression Smoking Status: Never smoker Past Alcohol Use History: None Reported Past Drug Use History: None Reported - Past Family History Mother Additional Family Medical History / Comment(s): Mother at age 57 from lung cancer with history of 2 MIs. Father Additional Family Medical History / Comment(s): Father alive at age 66 with history of COPD and HTN. Patient is an only child. 2 children with no major m edical problems. Medications and Allergies Home Medications Medication Instructions Recorded Confirmed Type clonazePAM [KlonoPIN] 1 mg PO BID PRN 01/22/19 11/27/24 History Adrenal Supplement 1 tab PO DAILY 11/27/24 11/27/24 History Aloe Vera (Unknown Dose) 1 cap PO DAILY 11/27/24 11/27/24 History Cariprazine HCl [Vraylar] 1.5 mg PO DAILY 11/27/24 11/27/24 History Clobetasol Propionate [Temovate 1 applic TOPICAL BID PRN 11/27/24 11/27/24 History 0.05% Cream] Dextromethorphan HBr/Bupropion 1 tab PO BID 11/27/24 11/27/24 History [Auvelity ER 45-105 mg Tablet] Ketorolac [Toradol] 10 mg PO TID PRN 11/27/24 11/27/24 History Magnesium (Unknown Dose) 1 tab PO DAILY 11/27/24 11/27/24 History Methylene Blue 1 tab PO DAILY 11/27/24 11/27/24 History Mobility Supplement 1 tab PO DAILY 11/27/24 11/27/24 History Ondansetron Odt [Zofran ODT] 4 mg PO Q6H PRN 11/27/24 11/27/24 History Propranolol [Inderal] 40 mg PO HS 11/27/24 11/27/24 History QUEtiapine [SEROquel] 50 mg PO HS 11/27/24 11/27/24 History Semaglutide [Wegovy] 2.4 mg SQ DIRECTED 11/27/24 11/27/24 History oxyBUTYnin chloride [Ditropan] 5 mg PO BID 11/27/24 11/27/24 History Allergies Allergy/AdvReac Type Severity Reaction Status Date / Time No Known Allergies Allergy Verified 12/18/23 10:28 Physical Exam Vitals: Vital Signs Temp Pulse Resp BP Pulse Ox 11/27/24 10:22 76 16 132/93 96 11/27/24 07:42 72 18 98/78 94 L 11/27/24 03:02 78 16 102/58 98 11/27/24 01:00 84 16 117/78 99 11/26/24 23:53 98 F 86 20 128/88 98 Intake and Output 11/26/24 11/27/24 11/27/24 22:59 06:59 14:59 Other: Weight 62.596 kg Results CBC & Chem 7: 11/27/24 00:12 11/27/24 00:12 Labs: Abnormal Lab Results - Last 24 Hours (Table) 11/27/24 11/27/24 Range/Units 00:12 00:12 APTT 21.1 L (22.0-30.0) sec Carbon Dioxide 21 L (22-30) mmol/L AST 87 H (14-36) U/L ALT 96 H (4-34) U/L
--- NOTE | 2024-11-27 15:41 | P.DS ---
Providers Date of admission: 11/27/24 04:19 Attending physician: Young Cazares MD Consults: 11/27/24 04:19 Consult Physician Routine Consulting Provider: Umair Shelley Consult Reason/Comments: chest pain Do you want consulting provider notified?: Yes Primary care physician: Tiny Lala DO Hospital Course: Discharge Diagnosis: #Chest pain, ACS is ruled out #Anxiety and depression #Elevated transaminases #Elevated TSH Hospital Course: Patient is a 54-year-old female with a history of anxiety and depression presented to the ER yesterday with complaint of left-sided chest pain which woke her up in the middle of the night yesterday. Patient reports that he felt left- sided pain which she describes as stabbing type, 8/10, radiating to the left side with no associated symptoms such as nausea, vomiting, diaphoresis. Patient reports that she has a history of SVTs. She also reports that her mom has CAD but unsure if she had a PCI. Patient reports that she is on progesterone therap y for postmenopausal symptoms which she started recently. Otherwise she denies smoking cigarettes or drink alcohol or use illicit drugs such as cocaine or marijuana. At the time of interview, patient has come back from stress echocardiogram and her chest pain is 5/10 for generalized chest. Patient denies any recent upper respiratory tract infection, trauma to the chest, no recent hospitalization or took a long haul flight. Patient reports no previous episodes of chest pain. Initial laboratory evaluation in the ER shows WBC 6.6, hemoglobin 12.4, platelet count 405, sodium 139, potassium 5.0, chloride 107, bicarb 21, BUN 30, creatinine 0.68, AST 87, ALT 96, ALP 68, troponin less than 0.012, repeat value less than 0.012, TSH 6.30 Vital signs arrival show temperature 98.0 F, pulse rate 86, blood pressure 128/88, respiratory rate 20, oxygen saturation 98% on room air EKG shows T wave inversions in V1, V2, V3. Otherwise normal sinus rhythm at a rate of 77 bpm, ID interval 138 ms, QRS duration 80, QTc 396 ms. Normal R wave progression noted. Chest x-ray shows no acute cardiopulmonary process. Echocardiogram shows normal LV function with LVEF of 60%. Stress echocardiogram shows no signs of acute ischemia. Cardiology was consulted. Stress echo was normal. Patient reports improvement in her chest pain. However patient left AMA before she could be formally discharged. Discharge disposition: Patient left AMA Dictation was produced using [employer] dictation software. Please excuse any grammatical, word or spelling errors. Attestation Attestation/ Industrial Sales Representative Note: Attestation to D/C Summary, Ervin left AMA - Provider Signature - ZOE DUFF MD Plan - Discharge Summary New Discharge Prescriptions: Continue clonazePAM [KlonoPIN] 1 mg PO BID PRN PRN Reason: Anxiety oxyBUTYnin chloride [Ditropan] 5 mg PO BID Propranolol [Inderal] 40 mg PO HS Cariprazine HCl [Vraylar] 1.5 mg PO DAILY Ondansetron Odt [Zofran ODT] 4 mg PO Q6H PRN PRN Reason: Nausea And Vomiting Ketorolac [Toradol] 10 mg PO TID PRN PRN Reason: Pain Dextromethorphan HBr/Bupropion [Auvelity ER 45-105 mg Tablet] 1 tab PO BID Adrenal Supplement 1 tab PO DAILY Aloe Vera (Unknown Dose) 1 cap PO DAILY QUEtiapine [SEROquel] 50 mg PO HS Clobetasol Propionate [Temovate 0.05% Cream] 1 applic TOPICAL BID PRN PRN Reason: Skin Irritation Semaglutide [Wegovy] 2.4 mg SQ DIRECTED Mobility Supplement 1 tab PO DAILY Magnesium (Unknown Dose) 1 tab PO DAILY Methylene Blue 1 tab PO DAILY Discharge Medication List clonazePAM [KlonoPIN] 1 mg PO BID PRN 01/22/19 [History] Adrenal Supplement 1 tab PO DAILY 11/27/24 [History] Aloe Vera (Unknown Dose) 1 cap PO DAILY 11/27/24 [History] Cariprazine HCl [Vraylar] 1.5 mg PO DAILY 11/27/24 [History] Clobetasol Propionate [Temovate 0.05% Cream] 1 applic TOPICAL BID PRN 11/27/24 [History] Dextromethorphan HBr/Bupropion [Auvelity ER 45-105 mg Tablet] 1 tab PO BID 11/27/24 [History] Ketorolac [Toradol] 10 mg PO TID PRN 11/27/24 [History] Magnesium (Unknown Dose) 1 tab PO DAILY 11/27/24 [History] Methylene Blue 1 tab PO DAILY 11/27/24 [History] Mobility Supplement 1 tab PO DAILY 11/27/24 [History] Ondansetron Odt [Zofran ODT] 4 mg PO Q6H PRN 11/27/24 [History] Propranolol [Inderal] 40 mg PO HS 11/27/24 [History] QUEtiapine [SEROquel] 50 mg PO HS 11/27/24 [History] Semaglutide [Wegovy] 2.4 mg SQ DIRECTED 11/27/24 [History] oxyBUTYnin chloride [Ditropan] 5 mg PO BID 11/27/24 [History] Follow up Appointment(s)/Referral(s): Tiny Lala DO [Primary Care Provider] - 1-2 days Patient Instructions/Handouts: Chest Pain (DC) Activity/Diet/Wound Care/Special Instructions: Please follow-up with your PCP within 1 to 2 weeks. Discharge Disposition: LEFT AGAINST MEDICAL ADVICE
[2024-11-27] MEDS ORDERED: QUEtiapine 50 MG TAB PO SCH ×2 (21:00)
[2024-11-27] MEDS ORDERED: PROPRANOLOL 40 MG TAB PO SCH (21:00)
[2024-11-28] MEDS ORDERED: ASPIRIN 325 MG TAB PO SCH (09:00)
== END 2024-11-27 12:48 | disposition left against medical advice (07) ==
LOC: EC 23:45 → 6NMEDSUR 11-27 04:19
PROVIDERS: ADMIT Internal Medicine; ATTEND Internal Medicine
DX: R07.89 Other chest pain (principal); Z53.29 Procedure and treatment not carried out because of patient's decision for other reasons; F32.A Depression, unspecified; F41.9 Anxiety disorder, unspecified; R74.01 Elevation of levels of liver transaminase levels; R94.6 Abnormal results of thyroid function studies; Z79.899 Other long term (current) drug therapy; Z82.49 Family history of ischemic heart disease and other diseases of the circulatory system
CPT/HCPCS: 96376; 96374; 99285; 36415; 93005; 93306; 93351; 84439; 80053; 84443; 83735; 84484; 85025; 85610; 85730; 71046; G0378; J2270

== ENCOUNTER 2024-12-02 11:14 | Observation (INO) | payer BC ==
--- NOTE | 2024-12-02 12:05 | XR ---
EXAMINATION TYPE: XR chest 2V DATE OF EXAM: 12/02/2024 11:57 AM COMPARISON: Chest radiographs from 11/27/2024 CLINICAL INDICATION: Female, 54 years old with history of Chest Pain; [facility] TECHNIQUE: XR chest 2V Frontal and lateral views of the chest. FINDINGS: Lungs/Pleura: There is no evidence of pleural effusion, focal consolidation, or pneumothorax. Pulmonary vascularity: Unremarkable. Heart/mediastinum: Cardiomediastinal silhouette is unremarkable. Musculoskeletal: No acute osseous pathology. IMPRESSION: No acute cardiopulmonary disease/process. [facility], , 12/02/2024 12:03 PM
--- NOTE | 2024-12-02 12:26 | ED ---
General Adult HPI - General Source: patient, RN notes reviewed, old records reviewed Mode of arrival: ambulatory Limitations: no limitations <[place] - Last Filed: 12/02/24 13:59> <Nelson Lester - Last Filed: 12/02/24 17:39> - General Chief complaint: Chest Pain Stated complaint: chest pain Time Seen by Provider: 12/02/24 11:55 - History of Present Illness Initial comments: 54-year-old female presents for evaluation of right-sided chest pain. Patient had recent hospital admission for left-sided chest pain. She has no prior history of CAD. She has a history of SVT. No abdominal pain. No vomiting. Mild dyspnea. ([place]ito Park) - Related Data Home Medications Medication Instructions Recorded Confirmed clonazePAM [KlonoPIN] 1 mg PO BID PRN 01/22/19 12/02/24 Adrenal Supplement 1 tab PO DAILY 11/27/24 12/02/24 Aloe Vera (Unknown Dose) 1 cap PO DAILY 11/27/24 12/02/24 Cariprazine HCl [Vraylar] 1.5 mg PO DAILY 11/27/24 12/02/24 Clobetasol Propionate [Temovate 1 applic TOPICAL BID PRN 11/27/24 12/02/24 0.05% Cream] Dextromethorphan HBr/Bupropion 1 tab PO BID 11/27/24 12/02/24 [Auvelity ER 45-105 mg Tablet] Ketorolac [Toradol] 10 mg PO TID PRN 11/27/24 12/02/24 Magnesium (Unknown Dose) 1 tab PO DAILY 11/27/24 12/02/24 Methylene Blue 1 tab PO DAILY 11/27/24 12/02/24 Mobility Supplement 1 tab PO DAILY 11/27/24 12/02/24 Ondansetron Odt [Zofran ODT] 4 mg PO Q6H PRN 11/27/24 12/02/24 QUEtiapine [SEROquel] 50 mg PO HS 11/27/24 12/02/24 oxyBUTYnin chloride [Ditropan] 5 mg PO BID 11/27/24 12/02/24 Allergies Allergy/AdvReac Type Severity Reaction Status Date / Time No Known Allergies Allergy Verified 12/02/24 14:31 Review of Systems ROS Other: All systems not noted in ROS Statement are negative. <[place] - Last Filed: 12/02/24 13:59> ROS Other: All systems not noted in ROS Statement are negative. <Nelson Lester - Last Filed: 12/02/24 17:39> ROS Statement: Those systems with pertinent positive or pertinent negative responses have been documented in the HPI. Past Medical History Past Medical History: GI Bleed Additional Past Medical History / Comment(s): SVT, abdominal pain infection? ruling out colitis History of Any Multi-Drug Resistant Organisms: MRSA Date of last positivie culture/infection: 04/05/19 MDRO Source:: Left Axilla Past Surgical History: Bladder Surgery, Breast Surgery, Cardiac Ablation, Orthopedic Surgery Additional Past Surgical History / Comment(s): bladder sling, breast augmentation, cardiac ablation [address] Noble., colonoscopy , mini abdominalplasty, britney carpal tunnel Past Anesthesia/Blood Transfusion Reactions: No Reported Reaction Past Psychological History: Anxiety, Depression Smoking Status: Never smoker Past Alcohol Use History: None Reported Past Drug Use History: None Reported - Past Family History Mother Additional Family Medical History / Comment(s): Mother at age 57 from lung cancer with history of 2 MIs. Father Additional Family Medical History / Comment(s): Father alive at age 66 with history of COPD and HTN. Patient is an only child. 2 children with no major medical problems. <[place] - Last Filed: 12/02/24 13:59> General Exam Limitations: no limitations General appearance: alert, in no apparent distress Head exam: Present: atraumatic, normocephalic Eye exam: Present: normal appearance, PERRL ENT exam: Present: normal exam Neck exam: Present: normal inspection. Absent: tenderness, meningismus Respiratory exam: Present: normal lung sounds bilaterally. Absent: respiratory distress, wheezes Cardiovascular Exam: Present: regular rate, normal rhythm GI/Abdominal exam: Present: soft. Absent: distended, tenderness, guarding Neurological exam: Present: alert, oriented X3, CN II-XII intact. Absent: motor sensory deficit Psychiatric exam: Present: normal affect, normal mood Skin exam: Present: warm, dry, intact. Absent: cyanosis, diaphoretic <[place] - Last Filed: 12/02/24 13:59> Course Vital Signs 12/02/24 12/02/24 12/02/24 11:35 12:59 14:38 Temperature 98 F Pulse Rate 90 82 77 Respiratory 146 H 16 18 Rate Blood Pressure 146/95 117/84 118/72 O2 Sat by Pulse 99 95 Oximetry 12/02/24 16:36 Temperature Pulse Rate 79 Respiratory 18 Rate Blood Pressure 123/82 O2 Sat by Pulse 95 Oximetry Medical Decision Making - Lab Data Result diagrams: 12/02/24 12:33 12/02/24 12:33 <[place]ito Park Giselle - Last Filed: 12/02/24 13:59> - Lab Data Result diagrams: 12/02/24 12:33 12/02/24 12:33 <Nelson Lester - Last Filed: 12/02/24 17:39> - Medical Decision Making Was pt. sent in by a medical professional or institution (ASTRID Smith, FORENSIC TECHNICIAN, urgent care, hospital, or jail...) When possible be specific @ -No Did you speak to anyone other than the patient for history (EMS, parent, family, police, friend...)? What history was obtained from this source @ -No Did you review nursing and triage notes (agree or disagree)? Why? @ -I reviewed and agree with nursing and triage notes Were old charts reviewed (outside hosp., previous admission, EMS record, old EKG, old radiological studies, urgent care reports/EKG's, jail records)? Report findings @ -No old charts were reviewed Differential Chest Pain: Stable Angina, Unstable Angina, STEMI, NSTEMI Aortic Dissection, Pneumothorax, Musculoskeletal, Esophageal Spasm GERD, Cholecystitis, Pancreatitis, Zoster, this is not meant to be an all-inclusive list. EKG interpreted by me (3pts min.). @ -Sinus rhythm rate of 87 LA interval 127, QRS duration 82, QTc [address] segment elevation T wave inversion and flattening in the precordial leads. X-rays interpreted by me (1pt min.). @ -[Chest x-ray is negative for acute cardiopulmonary findings CT interpreted by me (1pt min.). @CT angiography has been ordered U/S interpreted by me (1pt. min.). @Ultrasound gallbladder has been ordered What testing was considered but not performed or refused? (CT, X-rays, U/S, labs)? Why? @ -None What meds were considered but not given or refused? Why? @ -None Did you discuss the management of the patient with other professionals (professionals i.e. , PA, FORENSIC TECHNICIAN, lab, RT, psych nurse, licensed clinical social worker, seed analysis laboratory assistant, teacher, public information officer, watch caser)? Give summary @ -No Was smoking cessation discussed for >3mins.? @ -No Was critical care preformed (if so, how long)? @ -No Were there social determinants of health that impacted care today? How? (Homelessness, low income, unemployed, alcoholism, drug addiction, transportation, low edu. Level, literacy, decrease access to med. care, longterm, rehab)? @ -No Was there de-escalation of care discussed even if they declined (Discuss DNR or withdrawal of care, Hospice)? DNR status @ -No What co-morbidities impacted this encounter? (DM, HTN, Smoking, COPD, CAD, Cancer, CVA, ARF, Chemo, Hep., AIDS, mental health diagnosis, sleep apnea, morbid obesity)? @ -[SVT Was patient admitted / discharged? Hospital course, mention meds given and route, prescriptions, significant lab abnormalities, going to OR and other pertinent info. @ -54-year-old female with right-sided chest pain. EKG does show some minor T wave abnormality, no ST segment elevation. Chest x-ray is clear. She has a normal CBC, CMP shows very mild transaminitis. She has a deep positive D-dimer and is currently awaiting both CT angiography as well as right upper quadrant ultrasound. Care is signed out at shift change awaiting these results. (H[place]ito Park) Patient reevaluated by myself, Dr. Lester. Patient resting comfortably in bed. Discomfort is down to 4/10. Patient updated on results and plan. Case discussed with practitioner Cleopatra Renee who will admit covering with Dr. Duarte who had recently admitted the patient. Admission orders written. Ultrasound gallbladder interpreted by myself without acute abnormality. CT scan of the chest interpreted by myself without acute abnormality. No obvious pulmonary embolism. Diagnosis: Chest pain Acuity: Acute (Nelson Lester) - Lab Data Lab Results 12/02/24 12/02/24 12/02/24 Range/Units 12:33 12:33 12:33 WBC 6.2 (3.8-10.6) k/uL RBC 4.15 (3.80-5.40) m/uL Hgb 12.5 (11.4-16.0) gm/dL Hct 37.6 (34.0-46.0) % MCV 90.5 (80.0-100.0) fL MCH 30.0 (25.0-35.0) pg MCHC 33.1 (31.0-37.0) g/dL RDW 13.6 (11.5-15.5) % Plt Count 417 (150-450) k/uL MPV 6.8 Neutrophils % 55 % Lymphocytes % 29 % Monocytes % 6 % Eosinophils % 5 % Basophils % 1 % Neutrophils # 3.4 (1.3-7.7) k/uL Lymphocytes # 1.8 (1.0-4.8) k/uL Monocytes # 0.4 (0-1.0) k/uL Eosinophils # 0.3 (0-0.7) k/uL Basophils # 0.1 (0-0.2) k/uL PT 10.3 (10.0-12.5) sec INR 0.9 (<1.2) APTT 20.7 L (22.0-30.0) sec D-Dimer 0.67 H (<0.60) mg/L FEU Sodium 137 (137-145) mmol/L Potassium 4.0 (3.5-5.1) mmol/L Chloride 105 (98-107) mmol/L Carbon Dioxide 25 (22-30) mmol/L Anion Gap 7 mmol/L BUN 13 (7-17) mg/dL Creatinine 0.64 (0.52-1.04) mg/dL Est GFR (CKD-EPI)AfAm >90 (>60 ml/min/1.73 sqM) Est GFR (CKD-EPI)NonAf >90 (>60 ml/min/1.73 sqM) Glucose 99 (74-99) mg/dL Calcium 9.5 (8.4-10.2) mg/dL Magnesium 2.0 (1.6-2.3) mg/dL Total Bilirubin 0.8 (0.2-1.3) mg/dL AST 49 H (14-36) U/L ALT 83 H (4-34) U/L Alkaline Phosphatase 81 (38-126) U/L Troponin I (0.000-0.034) ng/mL Total Protein 7.5 (6.3-8.2) g/dL Albumin 4.4 (3.5-5.0) g/dL Urine Color Urine Appearance (Clear) Urine pH (5.0-8.0) Ur Specific [place] (1.001-1.035) Urine Protein (Negative) Urine Glucose (UA) (Negative) Urine Ketones (Negative) Urine Blood (Negative) Urine Nitrite (Negative) Urine Bilirubin (Negative) Urine Urobilinogen (<2.0) mg/dL Ur Leukocyte Esterase (Negative) 12/02/24 12/02/24 Range/Units 12:33 12:33 WBC (3.8-10.6) k/uL RBC (3.80-5.40) m/uL Hgb (11.4-16.0) gm/dL Hct (34.0-46.0) % MCV (80.0-100.0) fL MCH (25.0-35.0) pg MCHC (31.0-37.0) g/dL RDW (11.5-15.5) % Plt Count (150-450) k/uL MPV Neutrophils % % Lymphocytes % % Monocytes % % Eosinophils % % Basophils % % Neutrophils # (1.3-7.7) k/uL Lymphocytes # (1.0-4.8) k/uL Monocytes # (0-1.0) k/uL Eosinophils # (0-0.7) k/uL Basophils # (0-0.2) k/uL PT (10.0-12.5) sec INR (<1.2) APTT (22.0-30.0) sec D-Dimer (<0.60) mg/L FEU Sodium (137-145) mmol/L Potassium (3.5-5.1) mmol/L Chloride (98-107) mmol/L Carbon Dioxide (22-30) mmol/L Anion Gap mmol/L BUN (7-17) mg/dL Creatinine (0.52-1.04) mg/dL Est GFR (CKD-EPI)AfAm (>60 ml/min/1.73 sqM) Est GFR (CKD-EPI)NonAf (>60 ml/min/1.73 sqM) Glucose (74-99) mg/dL Calcium (8.4-10.2) mg/dL Magnesium (1.6-2.3) mg/dL Total Bilirubin (0.2-1.3) mg/dL AST (14-36) U/L ALT (4-34) U/L Alkaline Phosphatase (38-126) U/L Troponin I <0.012 (0.000-0.034) ng/mL Total Protein (6.3-8.2) g/dL Albumin (3.5-5.0) g/dL Urine Color Colorless Urine Appearance Clear (Clear) Urine pH 6.5 (5.0-8.0) Ur Specific [place] 1.002 (1.001-1.035) Urine Protein Negative (Negative) Urine Glucose (UA) Negative (Negative) Urine Ketones Negative (Negative) Urine Blood Negative (Negative) Urine Nitrite Negative (Negative) Urine Bilirubin Negative (Negative) Urine Urobilinogen <2.0 (<2.0) mg/dL Ur Leukocyte Esterase Negative (Negative) Disposition <[place] - Last Filed: 12/02/24 13:59> Is patient prescribed a controlled substance at d/c from ED?: No Time of Disposition: 17:39 <Nelson Lester - Last Filed: 12/02/24 17:39> Clinical Impression: Chest pain Disposition: ADMITTED IP TO THIS HOSP Referrals: Tiny Lala DO [Primary Care Provider] - 1-2 days
[2024-12-02 12:46] LABS: Appearance,Urine Clear (Clear); Bilirubin,Urine Negative (Negative); Blood,Urine Negative (Negative); Color,Urine Colorless; Glucose,Urine (UA) Negative (Negative); Ketones,Urine Negative (Negative); Leukocyte Esterase,Urine Negative (Negative); Nitrite,Urine Negative (Negative); PH, Urine 6.5 (5.0-8.0); Protein,Urine Negative (Negative); Specific Gravity,Urine 1.002 (1.001-1.035); Urobilinogen,Urine <2.0 mg/dL (<2.0)
[2024-12-02] MEDS: HYDROmorphone 0.5 MG/0.5 ML SYRINGE IVP STA ×2 (12:54→14:37)
[2024-12-02 12:56] LABS: ALT 83 U/L (4-34); AST 49 U/L (14-36); African American GFR (CKD) >90 (>60 ml/min/1.73 sqM); Albumin 4.4 g/dL (3.5-5.0); Alkaline Phosphatase 81 U/L (38-126); Anion Gap 7 mmol/L; Blood Urea Nitrogen 13 mg/dL (7-17); Calcium 9.5 mg/dL (8.4-10.2); Carbon Dioxide 25 mmol/L (22-30); Chloride 105 mmol/L (98-107); Glucose 99 mg/dL (74-99); Non-African American GFR(CKD) >90 (>60 ml/min/1.73 sqM); Sodium 137 mmol/L (137-145); Total Bilirubin 0.8 mg/dL (0.2-1.3); Total Protein 7.5 g/dL (6.3-8.2)
[2024-12-02 13:01] LABS: Basophils # (A) 0.1 k/uL (0-0.2); Basophils % (A) 1 %; Eosinophils # (A) 0.3 k/uL (0-0.7); Eosinophils % (A) 5 %; HCT 37.6 % (34.0-46.0); HGB 12.5 gm/dL (11.4-16.0); Lymphocytes # (A) 1.8 k/uL (1.0-4.8); Lymphocytes % (A) 29 %; MCHC 33.1 g/dL (31.0-37.0); MCV 90.5 fL (80.0-100.0); Mean Platelet Volume 6.8; Monocytes # (A) 0.4 k/uL (0-1.0); Monocytes % (A) 6 %; Neutrophils # (A) 3.4 k/uL (1.3-7.7); Neutrophils % (A) 55 %; Platelet Count 417 k/uL (150-450); RBC 4.15 m/uL (3.80-5.40); RDW 13.6 % (11.5-15.5); WBC 6.2 k/uL (3.8-10.6)
[2024-12-02 13:06] LABS: INR 0.9 (<1.2); Prothrombin Time 10.3 sec (10.0-12.5)
[2024-12-02 13:12] LABS: Partial Thromboplastin Time 20.7 sec (22.0-30.0)
--- NOTE | 2024-12-02 14:48 | CT ---
EXAMINATION TYPE: CT angio chest DATE OF EXAM: 12/02/2024 COMPARISON: CT chest dated 12/30/1957 CLINICAL INDICATION: Female, 54 years old with history of CP/dyspnea pos dimer; PHH, CP/dyspnea pos d edwige TECHNIQUE: CTA scan of the thorax is performed with IV Contrast, patient injected with 70ml mL of Isovue 370, pu lmonary embolism protocol. MIP images are created and reviewed. CT DLP: 322.[address] CTDI: mGy Automated exposure control for dose reduction was used. FINDINGS: LUNGS: The lungs are grossly clear, there is no concerning parenchymal mass or nodule identified. T here is no pleural effusion or pneumothorax seen. The tracheobronchial tree is patent. MEDIASTINUM: There is satisfactory enhancement of the pulmonary artery and its branches, there is no CT evidence for pulmonary embolism. There are no greater than 1 cm hilar or mediastinal lymph nodes. No pericardial effusion is seen. OTHER: No additional significant abnormality is seen. IMPRESSION: 1. NO EVIDENCE OF PULMONARY EMBOLISM 2. No acute cardiopulmonary disease. [facility], Workstation: [email or web address] 12/02/2024 2:45 PM
--- NOTE | 2024-12-02 15:46 | US ---
EXAMINATION TYPE: US gallbladder DATE OF EXAM: 12/02/2024 COMPARISON: CT 2024 CLINICAL INDICATION: Female, 54 years old with history of ruq pain; RUQ pain TECHNIQUE: Grayscale and color Doppler imaging of the right upper quadrant. FINDINGS: EXAM MEASUREMENTS: Liver Length: 15.0 cm Gallbladder Wall: 0.20 cm CBD: 0.64 cm, color Doppler imaging was utilized to isolate the common bile duct for measurement. Right Kidney: 9.8 x 5.9 x 4.3 cm MEDIA JOB TITLES NOTES: *Exam is limited due to gas Pancreas: *Not well seen. Liver: Appears coarse in echotexture Gallbladder: Appearance of Phrygian's cap. Appears anechoic. Evidence for sonographic Wiley's sign: No CBD: Appears wnl Right Kidney: No hydronephrosis or masses seen IMPRESSION: No evidence for acute process. [facility], , 12/02/2024 3:43 PM
[2024-12-02] MEDS: KETOROLAC 15 MG/ML 1 ML VIAL IVP STA (16:35)
[2024-12-02] MEDS ORDERED: NITROGLYCERIN SL TABS 0.4 MG TAB SUBLINGUAL PRN (17:39)
[2024-12-02] MEDS ORDERED: ONDANSETRON ODT 4 MG TAB PO PRN (17:40)
[2024-12-02] MEDS ORDERED: ETODOLAC 300 MG CAPSULE PO PRN (17:40)
[2024-12-02] MEDS: NITROGLYCERIN OINT 1 INCH/GM PACKET TOPICAL SCH (17:51)
[2024-12-02] MEDS: ASPIRIN 81 MG PO STA (17:52)
[2024-12-02] MEDS: MORPHINE SULFATE 4 MG/ML SYRINGE IV PRN (17:53)
[2024-12-02] MEDS: MORPHINE SULFATE 4 MG/ML SYRINGE IVP PRN (21:27)
[2024-12-02] MEDS: clonazePAM 1 MG TAB PO PRN (21:27)
[2024-12-02] MEDS: oxyBUTYnin chloride 5 MG TAB PO SCH (21:28)
[2024-12-02] MEDS: QUEtiapine 50 MG TAB PO SCH (21:28)
[2024-12-02] MEDS: AUVELITY PO SCH (22:51)
[2024-12-03 08:28] VITALS: BP 101/65; PULSE 71; RESP 16; TEMP 98
[2024-12-03 08:35] LABS: Chol/HDL Ratio 4.45 Ratio; LDL Cholesterol,Calculated 148.6 mg/dL (0.0-131.0)
[2024-12-03] MEDS ORDERED: MAGNESIUM PO SCH (09:00)
[2024-12-03] MEDS ORDERED: ALOE VERA PO SCH (09:00)
[2024-12-03] MEDS ORDERED: [UNRECOGNIZED DRUG - OTHER] PO SCH (09:00)
[2024-12-03] MEDS: ASPIRIN 325 MG TAB PO SCH (09:10)
[2024-12-03] MEDS: METHYLENE BLUE PO SCH (09:11)
--- NOTE | 2024-12-03 12:32 | US ---
EXAMINATION TYPE: US carotid duplex BILAT DATE OF EXAM: 12/03/2024 COMPARISON: NONE CLINICAL INDICATION: Female, 54 years old with history of evaluate for stenosis; Left chest pain. No HTN. No hx TIA Additional History: .... TECHNIQUE: Grayscale, color Doppler and spectral Doppler evaluation of the bilateral carotid systems and vertebral arteries. Indirect Doppler criteria was utilized. FINDINGS: EXAM MEASUREMENTS: RIGHT: Peak Systolic Velocity (PSV) cm/sec ----- Right CCA: 80.2 ----- Right ICA: 81.3 ----- Right ECA: 87.9 ICA/CCA ratio: 1.0 RIGHT: End Diastole cm/sec ----- Right CCA: 23.1 ----- Right ICA: 41.8 ----- Right ECA: 14.9 LEFT: Peak Systolic Velocity (PSV) cm/sec ----- Left CCA: 72.1 ----- Left ICA: 71.4 ----- Left ECA: 79.4 ICA/CCA ratio: 1.0 LEFT: End Diastole cm/sec ----- Left CCA: 22.0 ----- Left ICA: 31.9 ----- Left ECA: 12.9 VERTEBRALS (direction of flow): Right Vertebral: Antegrade Left Vertebral: Antegrade Rhythm: Normal DIRECTOR CLIENT SERVICES NOTES: No wall thickening or plaque seen. No elevated velocities. Color Doppler imaging shows patency with blood flow throughout the carotid artery. Spectral waveforms are within normal limits. IMPRESSION: Right: No hemodynamically significant stenosis. Left: No hemodynamically significant stenosis. Criteria for Assigning % of Stenosis / Diameter reduction (Estimation based on the indirect measurements of the internal carotid artery velocities (ICA PSV). 1. Normal (no stenosis)=ICA PSV < 180 cm/s: ratio < 2.0: ICA EDV<40 cm/s. 2. Less than 50% stenosis=ICA PSV < 180 cm/s: ratio < 2.0: ICA EDV<40 cm/s. 3. 50 to 69% stenosis=ICA PSV of 180 to 230 cm/s: ration 2.0 ? 4.0: ICA EDV 40-100 cm/s. PSV 125-180 cm/sec and ICA/CCA PSV Ratio ? 2.0 is also consistent with 50-69% stenosis 4. Greater than 70% stenosis to near occlusion= ICA PSV > 230 cm/s: ratio > 4.0: ICA EDV > 100 cm/s. 5. Near occlusion= ICA PSV velocities may be low or undetectable: variable ratio and ICA EDV. 6. Total occlusion=unable to detect flow. [facility], , 12/03/2024 12:29 PM
--- NOTE | 2024-12-03 13:07 | P.CRDCN ---
History of Present Illness Consult date: 12/03/24 Consult reason: chest pain History of present illness: This is a 54-year-old female patient of Dr. 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 We have been asked to evaluate the patient for chest pain. Patient states that last week she was in the hospital because she was experiencing left upper chest and left shoulder pain. She had a workup done at that time and was discharged home. She now presents with right upper chest and right shoulder pain. She denies neck pain. Area is tender to touch. Blood pressure 101/65, heart rate 71, pulse ox 98% on room air. Reviewed results of the testing done and recommendations with the patient. We will obtain lipid panel and A1c and have patient follow-up in the office for further evaluation and treatment. No plan for any aggressive cardiac workup at this time. -EKG: Sinus rhythm with T wave inversions V1 V2. -Chest x-ray: No acute process. -CTA chest: No evidence of pulmonary embolism. No acute cardiopulmonary disease. -Carotid duplex reveals no hemodynamically significant stenosis bilaterally. -Gallbladder ultrasound: No acute process. -Laboratory studies: CBC normal. D-dimer 0.67. Electrolytes and renal function normal. Troponin negative x 3. Triglycerides 226, cholesterol 250, LDL 148, HDL 56. Recent TSH 6.34. -Home cardiac medications: None -Echocardiogram performed 11/27/2024: Normal LV function. -Stress echocardiogram performed 11/27/2024 revealed good exercise tolerance. Negative stress test by EKG criteria. Negative stress echo. Review Of Systems: At the time of my exam: CONSTITUTIONAL: Denies fever or chills. HEENT: Denies blurred vision, vision changes, or eye pain. Denies hemoptysis CARDIOVASCULAR: Denies chest pain. Denies orthopnea. Denies PND. Denies pa lpitations RESPIRATORY: Denies shortness of breath. GASTROINTESTINAL: Denies abdominal pain. Denies nausea or vomiting. HEMATOLOGIC: Denies bleeding disorders. GENITOURINARY: Denies any blood in urine. SKIN: Denies puritis. Denies rash. Physical examination: Gen: This is a 54-year-old female in no acute distress. VS: reviewed HEENT: Head is atraumatic, normocephalic. Pupils equal, round. Sclerae is anicteric. NECK: Supple. No JVD. LUNGS: Clear to auscultation. No wheezes or rhonchi. No intercostal retractions. HEART: Regular rate and rhythm. No murmur. ABDOMEN: Soft No tenderness. EXTREMITIES: No pedal edema. No calf tenderness. NEUROLOGICAL: Patient is awake, alert and oriented x3. 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 Patient is cleared for discharge from cardiology and will follow-up in the office with Dr. Noble in 2 weeks. At that time, lab work will be available and her 10-year cardiovascular risk will be calculated. Thank you kindly for this consultation. Nurse practitioner note has been reviewed, I agree with documented findings and plan of care. Patient was seen and examined. Past Medical History Past Medical History: GI Bleed Additional Past Medical History / Comment(s): SVT, abdominal pain infection? ruling out colitis History of Any Multi-Drug Resistant Organisms: MRSA Date of last positivie culture/infection: 04/05/19 MDRO Source:: Left Axilla Past Surgical History: Bladder Surgery, Breast Surgery, Cardiac Ablation, Orthopedic Surgery Additional Past Surgical History / Comment(s): bladder sling, breast augmentation, cardiac ablation [address] Noble., colonoscopy , mini abdominalplasty, britney carpal tunnel Past Anesthesia/Blood Transfusion Reactions: No Reported Reaction Past Psychological History: Anxiety, Depression Smoking Status: Never smoker Past Alcohol Use History: None Reported Additional Past Alcohol Use History / Comment(s): Smoked for 2 years only. alcohol abuse stopped april 2023 Past Drug Use History: None Reported - Past Family History Mother Additional Family Medical History / Comment(s): Mother at age 57 from lung cancer with history of 2 MIs. Father Additional Family Medical History / Comment(s): Father alive at age 66 with history of COPD and HTN. Patient is an only child. 2 children with no major medical problems. Medications and Allergies Home Medications Medication Instructions Recorded Confirmed Type clonazePAM [KlonoPIN] 1 mg PO BID PRN 01/22/19 12/02/24 History Adrenal Supplement 1 tab PO DAILY 11/27/24 12/02/24 History Aloe Vera (Unknown Dose) 1 cap PO DAILY 11/27/24 12/02/24 History Cariprazine HCl [Vraylar] 1.5 mg PO DAILY 11/27/24 12/02/24 History Clobetasol Propionate [Temovate 1 applic TOPICAL BID PRN 11/27/24 12/02/24 History 0.05% Cream] Dextromethorphan HBr/Bupropion 1 tab PO BID 11/27/24 12/02/24 History [Auvelity ER 45-105 mg Tablet] Ketorolac [Toradol] 10 mg PO TID PRN 11/27/24 12/02/24 History Magnesium (Unknown Dose) 1 tab PO DAILY 11/27/24 12/02/24 History Methylene Blue 1 tab PO DAILY 11/27/24 12/02/24 History Mobility Supplement 1 tab PO DAILY 11/27/24 12/02/24 History Ondansetron Odt [Zofran ODT] 4 mg PO Q6H PRN 11/27/24 12/02/24 History QUEtiapine [SEROquel] 50 mg PO HS 11/27/24 12/02/24 History oxyBUTYnin chloride [Ditropan] 5 mg PO BID 11/27/24 12/02/24 History Allergies Allergy/AdvReac Type Severity Reaction Status Date / Time No Known Allergies Allergy Verified 12/02/24 14:31 Physical Exam Vitals: Vital Signs Temp Pulse Pulse Resp BP BP Pulse Ox 12/03/24 02:00 97.7 F 81 17 95/61 98 12/02/24 22:04 98.0 F 81 17 121/72 96 12/02/24 21:53 16 12/02/24 17:57 81 18 126/97 99 12/02/24 16:36 79 18 123/82 95 12/02/24 14:38 77 18 118/72 12/02/24 12:59 82 16 117/84 95 12/02/24 11:35 98 F 90 146 H 146/95 99 Intake and Output 12/02/24 12/03/24 12/03/24 22:59 06:59 14:59 Other: # Voids 2 1 Weight 63.503 kg Results 12/02/24 12:33 12/02/24 12:33 Cardiac Enzymes 12/02/24 12/02/24 12/02/24 Range/Units 12:33 12:33 17:53 AST 49 H (14-36) U/L Troponin I <0.012 <0.012 (0.000-0.034) ng/mL 12/02/24 Range/Units 20:53 AST (14-36) U/L Troponin I <0.012 (0.000-0.034) ng/mL Coagulation 12/02/24 Range/Units 12:33 PT 10.3 (10.0-12.5) sec APTT 20.7 L (22.0-30.0) sec CBC 12/02/24 Range/Units 12:33 WBC 6.2 (3.8-10.6) k/uL RBC 4.15 (3.80-5.40) m/uL Hgb 12.5 (11.4-16.0) gm/dL Hct 37.6 (34.0-46.0) % Plt Count 417 (150-450) k/uL Comprehensive Metabolic Panel 12/02/24 Range/Units 12:33 Sodium 137 (137-145) mmol/L Potassium 4.0 (3.5-5.1) mmol/L Chloride 105 (98-107) mmol/L Carbon Dioxide 25 (22-30) mmol/L BUN 13 (7-17) mg/dL Creatinine 0.64 (0.52-1.04) mg/dL Glucose 99 (74-99) mg/dL Calcium 9.5 (8.4-10.2) mg/dL AST 49 H (14-36) U/L ALT 83 H (4-34) U/L Alkaline Phosphatase 81 (38-126) U/L Total Protein 7.5 (6.3-8.2) g/dL Albumin 4.4 (3.5-5.0) g/dL Current Medications Generic Name Dose Route Start Last Admin Trade Name Freq PRN Reason Stop Dose Admin Aspirin 325 mg 12/03/24 09:00 Aspirin 325 Mg Tab PO DAILY TED Clonazepam 1 mg 12/02/24 17:40 12/02/24 21:27 Clonazepam 1 Mg Tab PO 1 mg BID PRN Administration Anxiety Etodolac 300 mg 12/02/24 17:40 Etodolac 300 Mg Capsule PO TID PRN Pain Morphine Sulfate 4 mg 12/02/24 20:09 12/03/24 06:43 Morphine Sulfate 4 Mg/Ml Syringe IVP 4 mg Q4HR PRN Administration Pain PO Intolerant Nitroglycerin 0.4 mg 12/02/24 17:39 Nitroglycerin Sl Tabs 0.4 Mg Tab SUBLINGUAL Q5M PRN Chest Pain Nitroglycerin 1 inch 12/02/24 18:00 12/03/24 06:31 Nitroglycerin Oint 1 Inch/Gm Packet TOPICAL Not Given Q6HR TED Auvelity ( 1 each 12/02/24 21:00 12/02/24 22:51 Dextromethorphan Hbr PO Not Given /Bupropion) Er 45- BID TED 105 Mg Tablet Vraylar (Cariprazine 1 each 12/03/24 09:00 ) 1.5 Mg Capsule PO DAILY [facility] Non-Formulary Medication 1 tab 12/03/24 09:00 Methylene Blue PO DAILY TED Ondansetron HCl 4 mg 12/02/24 17:40 Ondansetron Odt 4 Mg Tab PO Q6H PRN Nausea And Vomiting Oxybutynin Chloride 5 mg 12/02/24 21:00 12/02/24 21:28 Oxybutynin Chloride 5 Mg Tab PO 5 mg BID TED Administration Quetiapine Fumarate 50 mg 12/02/24 21:00 12/02/24 21:28 Quetiapine 50 Mg Tab PO 50 mg HS TED Administration Intake and Output 12/02/24 12/03/24 12/03/24 22:59 06:59 14:59 Other: # Voids 2 1 Weight 63.503 kg 12/02/24 12:33 12/02/24 12:33
--- NOTE | 2024-12-03 14:46 | HP ---
HISTORY AND PHYSICAL This is a combined history and physical and discharge summary. CHIEF COMPLAINT: Chest pain. HISTORY OF PRESENT ILLNESS: This is a 54-year-old woman with a past medical history of multiple medical problems including SVT, history of MRSA, history of GI bleed, also has had left-sided chest pain recently and the patient had a recent stress test. A stress echo which the patient passed according to her and currently the patient is having pain mainly on the right side, which radiated to the right shoulder and came to [facility] and admitted for further evaluation and treatment. A 2D echo done recently showed normal LV function. There is no history of any fever, rigors, or chills at this time. PAST MEDICAL HISTORY: History of MRSA, SVT, history of breast surgery. Rest of the history and rest of the chart is also reviewed. HOME MEDICATIONS: Reviewed include Ditropan, dose and rest of medications reviewed. ALLERGIES: None. FAMILY HISTORY: History of lung cancer, history of myocardial infarction. SOCIAL HISTORY: No history of smoking. History of alcohol previously. REVIEW OF SYSTEMS: A 14-point review of systems is negative except as mentioned earlier. PHYSICAL EXAMINATION: VITAL SIGNS: Pulse is 71, blood pressure 101/64, respirations 16. HEENT: Conjunctivae normal. NECK: No JVD. CARDIOVASCULAR: S1, S2. RESPIRATIONS: Breath sounds diminished at the bases. ABDOMEN: Soft, nontender. LEGS: No edema NERVOUS SYSTEM: Nonfocal. LABORATORY DATA: D-dimer is 0.67. Triglycerides 226, cholesterol is 250. AST and ALT elevated. ASSESSMENT: 1. Chest pain, possible unstable angina. 2. Hyperlipidemia. 3. Elevated AST and ALT. 4. Elevated D-dimer without any evidence of pulmonary embolism. 5. Gallbladder ultrasound negative. 6. Carotid Doppler normal. ASSESSMENT: 1. Chest pain, possible unstable angina. 2. History of recent negative stress echo. 3. History of supraventricular tachycardia. 4. Hyperlipidemia. 5.. Elevated AST and ALT. 6 Elevated D-dimer without any evidence of pulmonary embolism. 7 History of methicillin-resistant Staphylococcus aureus. 8 History of cardiac ablation. 9 History of multiple complex medical issues. 10 Atrioventricular hedy reentry tachycardia, status post ablation. RECOMMENDATIONS AND DISCUSSION: This is a 54-year-old woman, who presented with multiple complex medical issues, we will monitor the patient closely. I would recommend to resume the home medications, cardiology evaluation. Cardiology has cleared the patient for discharge. I would recommend to closely follow and return to the ER physician's office if any recurrence of symptoms for further evaluation. I recommend to continue the Lipitor and antiplatelet agents as well. Guarded prognosis. Further recommendations to follow. SHWETHA / RADHAN: [id number] / MTDD
--- NOTE | 2024-12-05 10:16 | P.DS ---
Providers Date of admission: 12/02/24 17:40 Expected date of discharge: 12/03/24 Attending physician: Young Cazares MD Consults: 12/02/24 17:39 Consult Physician Urgent Consulting Provider: Erlin Chang Consult Reason/Comments: cp Do you want consulting provider notified?: Yes Primary care physician: Tiny Lala, DO Hospital Course: Final diagnosis Chest pain, possible unstable angina, ACS ruled out History of recent negative stress echo History of SVT Hyperlipidemia Elevated AST, ALT Elevated D-dimer, PE ruled out History of MRSA History of cardiac ablation History of atrioventricular hedy reentry tachycardia, status post ablation GI prophylaxis DVT prophylaxis Full code Discharge disposition Patient is being discharged in a stable condition with guarded prognosis to home. Patient will follow-up with Dr. Lala in the outpatient setting upon discharge. Patient is to continue with current medications per cardiology and close outpatient follow-up with her metal furniture repairer Dr. Noble as scheduled. Total time taken is greater than 35 minutes. Hospital course This is a 54-year-old female who was recently admitted with chest pain being closely monitored and evaluated by cardiology. Cardiology has cleared the patient for discharge recommending outpatient follow-up with her metal furniture repairer Dr. Noble and instructed to continue with current medications. Patient to follow-up with her primary care provider as well in the outpatient setting. Patient has had 2 ER visits and 2 hospitalizations regarding this and this was discussed with cardiology and recommends discharge with outpatient follow-up in the next 1 to 2 weeks. Please refer to cardiology consultation notes for further HPI. Currently no reports of chest pain, shortness of breath, or p alpitations. Patient is afebrile. No reports of nausea or vomiting and patient is tolerating diet. Patient will be discharged home today. Guarded prognosis given significant comorbidities and high risk for readmissions. Patient instructed to follow-up with repeat labs to monitor LFTs and also outpatient follow-up with her primary care provider. Recommend statin therapy and antiplatelets on discharge. Physical exam: Gen: This is a 54-year-old female who is awake, alert and oriented x 3, well- developed, well-nourished HEENT: Head is atraumatic, normocephalic. Pupils equal, round. Sclerae is anicteric. NECK: Supple. No JVD. No lymphadenopathy. No thyromegaly. LUNGS: Diminished breath sounds bilaterally otherwise clear to auscultation. No wheezes or rhonchi. No intercostal retractions. HEART: S1, S2 are muffled ABDOMEN: Soft. Bowel sounds are present. No masses. No tenderness. EXTREMITIES: No pedal edema. No calf tenderness. NEUROLOGICAL: Patient is awake, alert and oriented x3. Cranial nerves 2 through 12 are grossly intact. Please refer to medication reconciliation sheet for a list of medications. The impression and plan of care has been dictated by Cleopatra Torres, Nurse Practitioner as directed. Dr. Gregory MD I have performed a history and examination and MDM of this patient, discussed the same with the dictator, and agree with the dictator's assessment and plan as written ,documented as a scribe. Based on total visit time, I have performed more than 50% of the visit. Patient Condition at Discharge: Fair Plan - Discharge Summary New Discharge Prescriptions: New Aspirin 81 mg PO DAILY #30 tab Nitroglycerin Sl Tabs [Nitrostat] 0.4 mg SUBLINGUAL Q5M PRN #20 tab PRN Reason: Chest Pain Atorvastatin [Lipitor] 20 mg PO DAILY #30 tablet Pantoprazole [Protonix] 40 mg PO DAILY #30 tab Continue clonazePAM [KlonoPIN] 1 mg PO BID PRN PRN Reason: Anxiety oxyBUTYnin chloride [Ditropan] 5 mg PO BID Cariprazine HCl [Vraylar] 1.5 mg PO DAILY Ondansetron Odt [Zofran ODT] 4 mg PO Q6H PRN PRN Reason: Nausea And Vomiting Ketorolac [Toradol] 10 mg PO TID PRN PRN Reason: Pain Dextromethorphan HBr/Bupropion [Auvelity ER 45-105 mg Tablet] 1 tab PO BID Adrenal Supplement 1 tab PO DAILY Aloe Vera (Unknown Dose) 1 cap PO DAILY QUEtiapine [SEROquel] 50 mg PO HS Clobetasol Propionate [Temovate 0.05% Cream] 1 applic TOPICAL BID PRN PRN Reason: Skin Irritation Mobility Supplement 1 tab PO DAILY Magnesium (Unknown Dose) 1 tab PO DAILY Methylene Blue 1 tab PO DAILY Discharge Medication List clonazePAM [KlonoPIN] 1 mg PO BID PRN 01/22/19 [History] Adrenal Supplement 1 tab PO DAILY 11/27/24 [History] Aloe Vera (Unknown Dose) 1 cap PO DAILY 11/27/24 [History] Cariprazine HCl [Vraylar] 1.5 mg PO DAILY 11/27/24 [History] Clobetasol Propionate [Temovate 0.05% Cream] 1 applic TOPICAL BID PRN 11/27/24 [History] Dextromethorphan HBr/Bupropion [Auvelity ER 45-105 mg Tablet] 1 tab PO BID 11/27/24 [History] Ketorolac [Toradol] 10 mg PO TID PRN 11/27/24 [History] Magnesium (Unknown Dose) 1 tab PO DAILY 11/27/24 [History] Methylene Blue 1 tab PO DAILY 11/27/24 [History] Mobility Supplement 1 tab PO DAILY 11/27/24 [History] Ondansetron Odt [Zofran ODT] 4 mg PO Q6H PRN 11/27/24 [History] QUEtiapine [SEROquel] 50 mg PO HS 11/27/24 [History] oxyBUTYnin chloride [Ditropan] 5 mg PO BID 11/27/24 [History] Aspirin 81 mg PO DAILY #30 tab 12/03/24 [Rx] Atorvastatin [Lipitor] 20 mg PO DAILY #30 tablet 12/03/24 [Rx] Nitroglycerin Sl Tabs [Nitrostat] 0.4 mg SUBLINGUAL Q5M PRN #20 tab 12/03/24 [Rx] Pantoprazole [Protonix] 40 mg PO DAILY #30 tab 12/03/24 [Rx] Follow up Appointment(s)/Referral(s): Vipul Noble MD [STAFF PHYSICIAN] - 2 Weeks (Office will call with appointment date and time.) Tiny Lala DO [Primary Care Provider] - 1-2 days Ambulatory/Diagnostic Orders: Comprehensive Metabolic Panel [LAB.AMB] Time Frame: 3 Days, Location: None Selected Patient Instructions/Handouts: Angina (DC) Activity/Diet/Wound Care/Special Instructions: Activity limited until follow up Follow-up with cardiology outpatient Follow-up with primary care provider on discharge Continue heart healthy diet with low-cholesterol diet Discussed with your primary care provider regarding cholesterol medications Discharge Disposition: HOME SELF-CARE
== END 2024-12-03 14:16 | disposition home or self-care (01) ==
LOC: EC 11:14 → 6NMEDSUR 17:40
PROVIDERS: ADMIT Internal Medicine; ATTEND Internal Medicine
DX: R07.89 Other chest pain (principal); E78.5 Hyperlipidemia, unspecified; R74.01 Elevation of levels of liver transaminase levels; R79.89 Other specified abnormal findings of blood chemistry; M25.511 Pain in right shoulder; R06.00 Dyspnea, unspecified; Z79.899 Other long term (current) drug therapy; Z86.14 Personal history of Methicillin resistant Staphylococcus aureus infection; Z87.19 Personal history of other diseases of the digestive system; Z86.79 Personal history of other diseases of the circulatory system; Z98.890 Other specified postprocedural states
CPT/HCPCS: 96376 ×3; 96374; 96375; 99285; 36415; 93005; 85379; 80061; 80053; 83735; 84484; 85025; 85610; 85730; 81003; 83036; 71046; 93880; 76705; 71275; G0378 ×2; J2270 ×2; J1885; J1171; Q9967